=== PATIENT | male | born 1965 | race Asian ===

== ENCOUNTER 2017-05-09 11:28 | Observation (INO) ==
--- NOTE | 2017-05-09 11:37 | Emergency Department Note ---
Disposition Clinical Impression: Cerebrovascular accident Qualifiers: CVA mechanism: unspecified Qualified Code(s): I63.9 - Cerebral infarction, unspecified Disposition: Admitted As Inpatient Condition: Fair Time of Disposition: 12:52 Neuro HPI - General Chief Complaint: ED Neuro Symptoms/Deficit Stated Complaint: L sided numbness/weakness Time Seen by Provider: 05/09/17 11:31 Source: patient, EMS Mode of arrival: EMS Limitations: no limitations Nursing Notes Reviewed: Yes Vital Signs Reviewed: Yes - History of Present Illness HPI Narrative: 52-year-old male with history of previous stroke with TPA to on 05/03/2017 and sent [facility]. Patient states at 11 AM he developed a worsening left-sided weakness in his left arm and left leg. Also developed slurred speech. Patient states he did have some residual in his left arm from previous stroke a week ago. Onset of Symptoms Date: 05/09/17 Onset of Symptoms Time: 11:00 Timing confirmed by: caregiver Location: speech, left face, left arm, left leg History of same: Yes Severity: moderate Quality: weakness, numbness Symptoms Improving: Yes (With respect to the leg.) Improves with: none Worsens with: none Context: sudden onset On Anticoagulants: Yes (Plavix and aspirin) - Related Data Home Medications: Home Medications Medication Instructions Recorded Confirmed Benztropine Mesylate 2 mg PO BID 10/28/16 05/09/17 Gabapentin [Neurontin] 900 mg PO TID 10/28/16 05/09/17 [place] Carbonate 300 mg PO BID 10/28/16 05/09/17 Losartan Potassium [Cozaar] 25 mg PO DAILY 10/28/16 05/09/17 Venlafaxine HCl [Venlafaxine HCl 225 mg PO DAILY 10/28/16 05/09/17 ER] Atorvastatin Calcium [Lipitor] 20 mg PO DAILY 05/09/17 05/09/17 Oxybutynin [Ditropan] 10 mg PO TID 05/09/17 05/09/17 Potassium Chloride [Klor-Con] 20 meq PO DAILY 05/09/17 05/09/17 Testosterone Cypionate 100 mg IM QWEEK 05/09/17 05/09/17 [Depo-Testosterone] Venlafaxine HCl [Venlafaxine HCl 75 mg PO 05/09/17 ER] Previous Rx's Medication Instructions Recorded Acetaminophen w/Cod 300-30 mg 1 each PO Q8HR PRN #4 tablet 04/19/17 [Tylenol w/Codeine #3] Aspirin Enteric Coated [Aspirin EC] 325 mg PO DAILY #30 tablet. 05/11/17 OxyCODONE/APAP 5/325 [Percocet 1 each PO Q6HR PRN #30 tablet 05/11/17 5/325 MG] Allergies/Adverse Reactions: Allergies Allergy/AdvReac Type Severity Reaction Status Date / Time cephalexin [From Keflex] Allergy Severe Anaphylaxis Verified 04/25/17 21:45 latex Allergy Mild Hives Verified 04/25/17 21:45 clams Allergy Anaphylaxis Verified 04/25/17 21:45 tramadol Allergy Seizure Verified 04/25/17 21:45 All systems ED: reviewed and negative except as stated. Constitutional: Denies: fever, chills, weakness, weight change Eyes: Denies: eye pain, eye discharge, vision change ENT ED: Denies: ear pain, throat pain, dental pain, hearing loss, epistaxis, congestion, dysphagia Cardiovascular: Denies: chest pain, palpitations, dyspnea on exertion, edema, syncope Respiratory: Denies: cough, dyspnea, wheezes, hemoptysis, stridor Gastrointestinal: Denies: abdominal pain, nausea, vomiting, diarrhea, constipation, hematemesis, melena, hematochezia Genitourinary: Denies: urgency, dysuria, frequency, hematuria Musculoskeletal: Denies: back pain, neck pain, arthralgia, myalgia Integumentary: Denies: rash, abrasion, lesions Neurological: Reports: weakness, numbness. Denies: headache, paresthesias, confusion, abnormal gait, vertigo Psychiatric: Denies: anxiety, depression, suicidal thoughts, homicidal thoughts , auditory hallucinations, visual hallucinations Endocrine: Denies: fatigue Hematological/Lymphatic: Denies: easy bleeding, easy bruising Allergic/Immunologic: Denies: facial swelling, urticaria Past Medical History - Past Medical History Medical history: Reports: CHF, coronary artery disease, CVA, hypertension, migraine, myocardial infarction, pulmonary embolus, seizures, TIA, other Surgical history: Reports: cholecystectomy, hip replacement, orthopedic, other, other Psychiatric history: Reports: anxiety, bipolar, depression, PTSD - Social History Smoking Status: Never smoker Smokeless Tobacco Status: No Alcohol use: Reports: occasionally Drug use: Reports: none Physical Exam - General Limitations: no limitations General appearance: alert, in no apparent distress - Head Head exam: atraumatic, normocephalic, normal inspection - Eye Eye exam: Present: normal appearance, PERRL, EOMI - ENT ENT exam: normal exam, normal oropharynx, mucous membranes moist - Neck Neck exam: Present: normal inspection, full ROM, trachea midline - Chest Chest inspection: Present: normal inspection, symmetric chest wall rise - Respiratory Respiratory exam: Present: normal lung sounds bilaterally - Cardiovascular Cardiovascular exam: Present: regular rate, normal rhythm, normal heart sounds - Abdominal Exam Abdominal exam: Present: soft, Non-Tender. Absent: tenderness, distention, guarding, rebound, rigidity - Extremities Exam Extremities exam: Present: normal inspection, full ROM. Absent: tenderness, pedal edema - Expanded Lower Extremity Exam Neurovascular/Tendon exam: Absent: motor deficit, sensory deficit, tendon deficit Gait: observed and normal - Back Exam Back exam: Present: normal inspection, full ROM. Absent: tenderness - Neurological Exam Neurological exam: Present: alert, oriented X3 - Psychiatric Psychiatric exam: Present: normal affect, normal mood - Skin Skin exam: Present: warm, dry, intact, normal color Course - Reevaluation(s) Reevaluation #1: 52-year-old male who comes in complaining of left-sided strokelike symptoms started less than 30 minutes prior to arrival. Workup here so far was negative. We did activate the stroke alert and discussed with [facility] which did not feel he was a TPA candidate. They note he is received tPA 3 times and has had normal MRIs following. Time: 13:11 - Consultations Consultation #1: Discussed with Dr. Rolle radiology the CT scan is negative. Time: 11:54 Consultation #2: Discussed with [facility] neurology who states patient is not a TPA candidate. Time: 12:03 Consultation #3: Discussed with , admit. Time: 13:06 Vital Signs Temperature 98.4 F 05/09/17 11:33 Pulse Rate 89 05/09/17 11:33 Respiratory Rate 18 05/09/17 11:33 Blood Pressure 109/74 05/09/17 11:33 O2 Sat by Pulse Oximetry 95 05/09/17 11:33 Temperature 97.9 F 05/11/17 06:54 Pulse Rate 61 05/11/17 06:54 Respiratory Rate 18 05/11/17 06:54 Blood Pressure 114/79 05/11/17 06:54 O2 Sat by Pulse Oximetry 96 05/11/17 06:54 Oxygen Delivery Oxygen Delivery Room Air Neuro Symptoms/Deficit - Lab Data Result diagrams: 05/10/17 03:47 05/10/17 03:47 Lab Results 05/09/17 05/09/17 05/09/17 Range/Units 11:33 11:48 11:48 WBC 7.3 (4.3-11.1) K/mcL RBC 4.22 (4.19-5.50) M/mcL Hgb 12.9 (12.9-16.9) g/dL Hct 38.4 (37.5-50.1) % MCV 91.0 (83.0-100.0) fL MCH 30.6 (28.0-33.3) pg MCHC 33.6 (31.6-35.5) g/dL RDW 13.4 (11.5-14.5) % Plt Count 176 (140-400) K/mcL MPV 9.0 L (9.4-12.4) fL Immature Gran % 0.4 (0-4) % Seg Neutrophils % 74.1 % Lymphocytes % 16.3 % Monocytes % 4.8 % Eosinophils % 4.0 % Basophils % 0.4 % Neutrophils # 5.4 (1.6-8.9) K/mcL Lymphocytes # 1.2 (0.6-4.6) K/mcL Monocytes # 0.4 (0.0-1.3) K/mcL Eosinophils # 0.3 (0.0-0.6) K/mcL Basophils # 0.0 (0.0-0.2) K/mcL PT 11.7 (9.4-12.1) Seconds INR 1.1 APTT 32.2 (26.0-36.0) Seconds Sodium (136-145) mEq/L Potassium (3.5-4.5) mEq/L Chloride (98-109) mEq/L Carbon Dioxide (19-29) mEq/L BUN (8-26) mg/dL Creatinine (0.72-1.25) mg/dL Est GFR ( Amer) (> 60) Est GFR (Non-Af Amer) (> 60) BUN/Creatinine Ratio (6-26) Glucose (70-99) mg/dL POC Glucose 93 H (58-89) Calculated Osmolality (280-300) Calcium (8.6-10.8) mg/dL Troponin I (0-0.03) ng/mL 05/09/17 05/09/17 Range/Units 11:48 11:48 WBC (4.3-11.1) K/mcL RBC (4.19-5.50) M/mcL Hgb (12.9-16.9) g/dL Hct (37.5-50.1) % MCV (83.0-100.0) fL MCH (28.0-33.3) pg MCHC (31.6-35.5) g/dL RDW (11.5-14.5) % Plt Count (140-400) K/mcL MPV (9.4-12.4) fL Immature Gran % (0-4) % Seg Neutrophils % % Lymphocytes % % Monocytes % % Eosinophils % % Basophils % % Neutrophils # (1.6-8.9) K/mcL Lymphocytes # (0.6-4.6) K/mcL Monocytes # (0.0-1.3) K/mcL Eosinophils # (0.0-0.6) K/mcL Basophils # (0.0-0.2) K/mcL PT (9.4-12.1) Seconds INR APTT (26.0-36.0) Seconds Sodium 139 (136-145) mEq/L Potassium 4.1 (3.5-4.5) mEq/L Chloride 109 (98-109) mEq/L Carbon Dioxide 27 (19-29) mEq/L BUN 8 (8-26) mg/dL Creatinine 0.79 (0.72-1.25) mg/dL Est GFR ( Amer) > 60 (> 60) Est GFR (Non-Af Amer) > 60 (> 60) BUN/Creatinine Ratio 10 (6-26) Glucose 80 (70-99) mg/dL POC Glucose (58-89) Calculated Osmolality 285 (280-300) Calcium 9.2 (8.6-10.8) mg/dL Troponin I 0.00 (0-0.03) ng/mL - EKG Data EKG attestation: Yes I reviewed and interpreted this EKG. EKG shows normal: sinus rhythm Rate: normal Rhythm: NSR Interpretation: no acute changes NIH Stroke Scale - Level of Consciousness LOC: Alert - LOC Questions LOC Questions: Answers both correctly - LOC Commands LOC Commands: Performs both correctly - Best Gaze Best Gaze: Normal - Visual Visual: No visual loss - Facial Palsy Facial Palsy: Minor asymmetry on smiling, flattened nasolabial fold - Motor Arms Motor Arm-Left: Drift, does NOT hit bed Motor Arm-Right: No drift for 10 seconds - Motor Legs Motor Leg-Left: No drift for 5 seconds Motor Leg-Right: No drift for 5 seconds - Limb Ataxia Limb Ataxia: Present in ONE limb - Sensory Sensory: Mild to moderate loss, "not as sharp" - Best Language Best Language: No aphasia - Dysarthria Dysarthria: Mild, slurs some words - Extinction and Inattention Extinction and Inattention: Normal - NIHSS Total Score NIHSS Total Score: 5 TPA Checklist - Eligibilty for IV tPA 1. LKW equal to or less than 4.5 hours be before treatment: Yes 2. Clinical diagnosis of ischemic stroke causing deficit: Yes 3. Age 18 years or older: Yes - Contraindications 4. Evidence of intracranial hemorrhage on pretreatment CT: No 5. Presentation suggests subarachnoid hem, even if CT normal: No 6. CT shows multilobar infarction: No 7. Known neoplasm, arteriovenous malformation, or aneurysm: No 8. Significant head trauma (w/ LOC) or CVA in last 3 months: No 9. BP elevated (systolic > 185 or diastolic > 110): No 10. Abnormal Blood Glucose (<50 or >400mg/dl): No 11. Active internal bleeding [PM.TPA15]: No 12. Known bleeding risk (including; not limited to 13-15): No 13. Heparin/argatroban/bivalirudin w/in 48hrs & PTT > normal: No 14. Platelet count less than 100,000/MM3: No - Warnings/Precautions Considerations 16. Prior ischemic stroke within last 3 months: Yes 17. Recent history of intracranial hemorrhage: No 18. : No 19. Current/recent use Effient (7 days) or Brilinta (5 days): No 20. Arterial puncture at non compressible site or LP >7days: No 21. Major surgery or serious trauma in last 14 days: No 22. GI or urinary tract hemorrhage in last 21 days: No 23. [place] involving left anterior myocardium in last 3 months: No 24. Suspected or known infective endocarditis/pericarditis: No - LKW: 3-4.5 hrs Add. Warnings/Precautions 25. oral anticoag other than warfarin regardles of last dose: Yes Patient/family understanding: The patient/family members have been counseled and understood the risk, benefit , and alternatives of treatment.
[2017-05-09 11:56] LABS: Basophils % 0.4 %; Eosinophils # 0.3 K/mcL (0.0-0.6); Hematocrit 38.4 % (37.5-50.1); Hemoglobin 12.9 g/dL (12.9-16.9); Immature Granulocytes % 0.4 % (0-4); Lymphocytes # 1.2 K/mcL (0.6-4.6); Lymphocytes % 16.3 %; Mean Corpuscular HGB Conc 33.6 g/dL (31.6-35.5); Mean Corpuscular Hemoglobin 30.6 pg (28.0-33.3); Monocytes # 0.4 K/mcL (0.0-1.3); Monocytes % 4.8 %; Neutrophils # 5.4 K/mcL (1.6-8.9); Red Blood Count 4.22 M/mcL (4.19-5.50); Red Cell Distribution Width 13.4 % (11.5-14.5); Segmented Neutrophils % 74.1 %
[2017-05-09 11:57] LABS: Platelet Count 176 K/mcL (140-400)
[2017-05-09 12:01] LABS: INR 1.1; Prothrombin Time 11.7 Seconds (9.4-12.1)
[2017-05-09 12:04] LABS: Activated Partial Thrombo Time 32.2 Seconds (26.0-36.0)
[2017-05-09 12:08] LABS: BUN/Creatinine Ratio 10 (6-26); Blood Urea Nitrogen 8 mg/dL (8-26); Calcium 9.2 mg/dL (8.6-10.8); Carbon Dioxide 27 mEq/L (19-29); Chloride 109 mEq/L (98-109); Glucose 80 mg/dL (70-99); Osmolality,Calculated 285 (280-300); Potassium 4.1 mEq/L (3.5-4.5); Sodium 139 mEq/L (136-145); eGFR For African Americans > 60 (> 60); eGFR For Non-African Americans > 60 (> 60)
[2017-05-09] MEDS ORDERED: Naloxone 0.4 MG/ML INJ IVP PRN (14:16)
--- NOTE | 2017-05-09 14:33 | Internal Med History&Physical ---
<Ashley Smith - Last Filed: 05/09/17 15:16> Date of Encounter: 05/09/17 Time of Encounter: 14:32 Assessment and Plan (1) TIA (transient ischemic attack) Current visit: Yes Status: Suspected 1 patient has episode of numbness tingling slurred speech and weakness to the left side occurring approximately 11 AM symptoms are resolved at this time. Patient does have history of CVA in the past. Proximal L week ago he was sent to [facility] after receiving TPA for stroke symptoms follow-up MRI was negative. We will continue with frequent neuro checks 2 we will obtain MRa head and neck -CT is negative 3 we will obtain records from [facility] concerning previous stroke workup 4 we will continue with aspirin and statin 5- we will consult psychiatry patient does have history of bipolar disorder concerned that this may be related to possible conversion disorder Qualifiers: Transient cerebral ischemia type: unspecified Qualified Code(s): G45.9 - Transient cerebral ischemic attack, unspecified (2) Bipolar 1 disorder Current visit: No Status: Chronic 1 we will continue with home medications-he will check lithium level 2 consult psychiatry (3) Chronic diastolic CHF (congestive heart failure) Current visit: No Status: Chronic Jose appears stable no pedal edema no JVD lungs sounds are clear. We will continue with home medications (4) DVT prophylaxis Current visit: Yes Status: Acute 1 ETHEL hose (5) Hypertension Current visit: No Status: Chronic 1 presently controlled continue with losartan, 2 low sodium diet Qualifiers: Hypertension type: essential hypertension Qualified Code(s): I10 - Essential (primary) hypertension Internal Medicine - H&P: HPI Chief complaint: numbness tingling of Left side Admitted From: Emergency Dept Plans for Post Hospital Care: Home History of present illness: Mr. Brown is a 52 year old male with past medical history of congestive heart failure coronary disease and CVA hypertension migraines OR bipolar. The patient has an extensive history apparently around November 19 he was in [place] and experienced stroke symptoms and was given TPA at that time. He then on April 21 of this month experienced a fall from standing and struck his head he was sent to [facility]. And then on May 03 he experienced a stroke with TPA and again sent to [facility]. Post-TPA MRI was negative. He did have some residual weakness in his left arm. He was discharged on May 04 and since that time he has been at his usual state of health. He denies any fevers chills nausea vomiting diarrhea abdominal pain chest pain or shortness of breath Today at approximately 11 AM patient began to experience numbness and tingling of his left arm and leg. He states he was off balance and was slurring his speech. He presented to the ER stroke alert was called and at that time his NIH score was 5. ER physician did speak with Dr. Arlene CAZARES neurology patient is not a TPA candidate. CT of head was negative patient's symptoms, improving he is hemodynamically stable he has been admitted for further workup evaluation. Upon assessment, patient ambulating in room, bending over picking up his belongings from the floor and got back into bed without any difficulty. He is alert oriented 3 he follows simple commands cranial nerves II through XII are intact Romberg was negative. Patient states his symptoms have pretty much resolved, he still has some slight tingling in his fingers. His lung sounds are clear heart sounds are regular S1 and S2 with no rubs clicks, murmurs noted abdomen soft nontender no swelling lower extremities. He is hemodynamically stable. I reviewed this case with Dr Joseph who agrees with plan Past Med Surg Social Fam HX - Past Medical History Medical history: CHF, coronary artery disease, CVA, hypertension, migraine, myocardial infarction, pulmonary embolus, seizures, TIA, other Psychiatric history: anxiety, bipolar, depression, PTSD - Past Surgical History Surgical History: cholecystectomy, hip replacement, orthopedic, other, other - Social History Smoking Status: Never smoker Smokeless Tobacco Status: No Alcohol use: occasionally Drug use: none - Family History Father Adopted: Yes Hx Family Cardiac Disorders: Yes Internal Medicine - H&P: Meds Aspirin 81 mg PO DAILY 10/28/16 [History] Benztropine Mesylate 2 mg PO BID 10/28/16 [History] Gabapentin [Neurontin] 900 mg PO TID 10/28/16 [History] [place] Carbonate 300 mg PO BID 10/28/16 [History] Losartan Potassium [Cozaar] 25 mg PO DAILY 10/28/16 [History] Venlafaxine HCl [Venlafaxine HCl ER] 225 mg PO DAILY 10/28/16 [History] Acetaminophen w/Cod 300-30 mg [Tylenol w/Codeine #3] 1 each PO Q8HR PRN #4 tablet 04/19/17 [Rx] Atorvastatin Calcium [Lipitor] 20 mg PO DAILY 05/09/17 [History] Oxybutynin [Ditropan] 10 mg PO TID 05/09/17 [History] Potassium Chloride [Klor-Con] 20 meq PO DAILY 05/09/17 [History] Testosterone Cypionate [Depo-Testosterone] 100 mg IM QWEEK 05/09/17 [History] Venlafaxine HCl [Venlafaxine HCl ER] 75 mg PO 05/09/17 [History] Allergies cephalexin [From Keflex] Allergy (Severe, Verified 04/25/17 21:45) Anaphylaxis latex Allergy (Mild, Verified 04/25/17 21:45) Hives clams Allergy (Verified 04/25/17 21:45) Anaphylaxis tramadol Allergy (Verified 04/25/17 21:45) Seizure All Systems PM: A 10-system review of systems was performed and is negative for pertinent findings except as documented above in the HPI. - Constitutional Constitutional: no chills, no fever(s), no night sweats - EENT Eyes: no change in vision, no discharge, no pain, no photophobia Nose, mouth and throat: no dysphagia, no nasal discharge, no neck pain, no sore throat - Cardiovascular Cardiovascular ROS IM: no chest pain, no diaphoresis, no dyspnea, no lightheadedness, no palpitations, no syncope - Respiratory Respiratory: no cough, no dyspnea, no wheezing, no excessive phlegm production - Gastrointestinal Gastrointestinal: no abdominal pain, no diarrhea, no hematemesis, no hematochezia, no melena, no nausea, no vomiting - Musculoskeletal Musculoskeletal ROS IM: no numbness, no tingling - Integumentary Integumentary IM: no rash, no unusual bruising - Neurological Neurological ROS: numbness, tingling - Constitutional Vitals: Temp Pulse Resp BP Pulse Ox 98.4 F 70 18 106/70 97 05/09/17 11:33 05/09/17 12:31 05/09/17 14:17 05/09/17 14:17 05/09/17 12:31 General appearance: Present: A&O X 3, answers questions appropriately - Head Head exam: Present: atraumatic, normocephalic - Eye Eye exam: Present: PERRL, conjuntiva pink, sclera anicteric Pupils: Present: PERRL - Neck Neck exam general surgery: Present: supple, trachea midline. Absent: lymphadenopathy - Respiratory Respiratory exam: Present: CTAB. Absent: accessory muscle use, rales, rhonchi, wheezes - Cardiovascular Cardiovascular exam: Present: RRR, +S1, +S2. Absent: diastolic murmur, gallop, rubs, systolic murmur - GI/Abdominal GI/Abdominal exam: Present: normal bowel sounds, soft, no peritoneal signs. Absent: distended, tenderness - Extremities Exam Extremities exam: Present: warm, radial pulses palpable and symetrical. Absent : calf tenderness, cyanotic, pedal edema - Neurological Exam Neurological exam: Present: CN II-XII intact, oriented X3, no focal deficits. Absent: pronater drift, facial droop, speech deficit - Expanded Neurological Exam Speech: Present: fluid speech Cranial Nerves: EOM's intact PM: Normal, tongue deviation PM: Normal Cerebellar function: finger to nose: Normal, Romberg: Normal Neuro motor strength exam: LUE: 4, RUE: 5, LLE: 5, RLE: 5 Coma Scale Eye Opening: Spontaneous Coma Scale Motor Response: Obeys Commands Coma Scale Verbal Response: Oriented Coma Scale Total: 15 - Skin Skin exam: Present: dry, intact Internal Med - H&P Results - Labs CBC & Chem 7: 05/09/17 11:48 05/09/17 11:48 - EKG Data EKG shows normal: sinus rhythm - Diagnostic Studies Other Images Additional comments: Head CT 05/09/17 11:32 IMPRESSION: 1. Stable exam with no acute intracranial abnormality. 2. Stable mild right supraorbital scalp contusion. Critical test findings were called by Dr. Suhas Rolle MD to Tho Cordero on 05/09/2017 at 11:53. D/ / 05/09/2017 11:56:27 Suhas Rolle MD / earnold Interpreting Provider: Suhas Rolle MD <Sin Joseph T - Last Filed: 05/09/17 16:14> Date of Encounter: 05/09/17 Internal Medicine - H&P: HPI History of present illness: Mr. Brown is a 52 year old male All Systems PM: A 10-system review of systems was performed and is negative for pertinent findings except as documented above in the HPI. - Constitutional Vitals: Temp Pulse Resp BP Pulse Ox 98.4 F 70 18 106/70 97 05/09/17 11:33 05/09/17 12:31 05/09/17 14:17 05/09/17 14:17 05/09/17 12:31 Internal Med - H&P Results - Labs CBC & Chem 7: 05/09/17 11:48 05/09/17 11:48 - Attending Attestation I have independently seen and examined this patient. Plan of care has been discussed with NATALIE Smith, whose documentation reflects our plan of care 52 M just discharged from [facility] four days ago after being managed for Ischemic CVA (patient received TPA), per ER resident, Brain MRI and CTA were not remarkable for CVA at that time. Patient represents to the ER stating nothing changed from when I was discharged from [facility], I still have LLE and LUE weakness. 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 He has bilateral ptosis bilaterally, otherwise no neurologic deficits, other systemic exm unremarkable Labs and Imaging reviewed: Unremarkable A/P *Suspected TIA. Obtain records from [facility], but complete TIA work up. Continue ASA/ Lipitor, Neurochecks q2h till stable, Obtain Head and Neck MRA *Suspected Conversion disorder, consult psych. Check lithium level, resume home psych meds PTSD/Bipolar/Other chronic medical conditions are stable. Rest of details as in NATALIE Smith documentation
--- NOTE | 2017-05-09 16:27 | Electrocardiograph Report ---
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
[2017-05-09] MEDS ORDERED: *HR* LORazepam 2 MG/ML VIAL IVP ONE (16:47)
[2017-05-09] MEDS ORDERED: 0.9 % Sodium Chloride 500 ML IVC ONE (16:48)
[2017-05-09] MEDS: Acetaminophen 325 MG TABLET PO PRN (22:02)
[2017-05-09] MEDS: Gabapentin 300 MG CAPSULE PO SCH (22:02)
[2017-05-09] MEDS: Lithium Carbonate 300 MG CAPSULE PO SCH (22:02)
[2017-05-10 04:53] LABS: BUN/Creatinine Ratio 12 (6-26); Blood Urea Nitrogen 9 mg/dL (8-26); Calcium 8.9 mg/dL (8.6-10.8); Carbon Dioxide 24 mEq/L (19-29); Chloride 111 mEq/L (98-109); Chol/HDL Ratio 2.4 (0-4.9); Glucose 84 mg/dL (70-99); HDL Cholesterol 30 mg/dL (40-59); LDL Cholesterol,Calculated 26 mg/dL (0-99); Osmolality,Calculated 290 (280-300); Potassium 3.7 mEq/L (3.5-4.5); Sodium 141 mEq/L (136-145); Triglycerides 74 mg/dL (< 150); eGFR For African Americans > 60 (> 60); eGFR For Non-African Americans > 60 (> 60)
[2017-05-10 04:59] LABS: Basophils # 0.1 K/mcL (0.0-0.2); Basophils % 0.7 %; Eosinophils # 0.4 K/mcL (0.0-0.6); Hemoglobin 13.3 g/dL (12.9-16.9); Immature Granulocytes % 0.4 % (0-4); Lymphocytes # 1.8 K/mcL (0.6-4.6); Lymphocytes % 26.2 %; Mean Corpuscular HGB Conc 33.3 g/dL (31.6-35.5); Mean Corpuscular Hemoglobin 30.7 pg (28.0-33.3); Mean Corpuscular Volume 92.4 fL (83.0-100.0); Mean Platelet Volume 9.3 fL (9.4-12.4); Monocytes # 0.5 K/mcL (0.0-1.3); Monocytes % 7.6 %; Platelet Count 168 K/mcL (140-400); Red Blood Count 4.33 M/mcL (4.19-5.50); Red Cell Distribution Width 13.4 % (11.5-14.5); Segmented Neutrophils % 59.1 %
[2017-05-10 05:03] LABS: Cholesterol 71 mg/dL (< 200)
[2017-05-10] MEDS: Lithium Carbonate 300 MG CAPSULE PO SCH ×2 (09:52→21:00)
[2017-05-10] MEDS: Gabapentin 300 MG CAPSULE PO SCH ×3 (09:52→21:00)
[2017-05-10] MEDS: Aspirin 81 MG TAB.CHEW PO SCH (09:52)
[2017-05-10] MEDS: Venlafaxine XR (24 HR) 75 MG CAP.ER.24H PO SCH (09:52)
[2017-05-10] MEDS ORDERED: *HR* LORazepam 2 MG/ML VIAL IVP ONE ×2 (12:35)
--- NOTE | 2017-05-10 12:39 | Internal Med Progress Note ---
Date of Encounter: 05/10/17 Time of Encounter: 12:38 - Assessment and plan (1) TIA (transient ischemic attack) Current Visit: Yes Status: Suspected Assessment and plan: patient has reported sudden onset loss of sensation in the ft upper extremity and slurred speech. This has improved. Head CT was negative. Plan: Will obtain MRI of the brain. Obtain records from his recent hospitalization at [facility]. Frequent neuro checks. Continue aspirin. MRA of the head and neck were reviewed and found to be nonrevealing. Qualifiers: Transient cerebral ischemia type: unspecified Qualified Code(s): G45.9 - Transient cerebral ischemic attack, unspecified (2) DVT prophylaxis Current Visit: Yes Status: Acute Assessment and plan: Subcutaneous Lovenox. (3) Bipolar 1 disorder Current Visit: No Status: Chronic Assessment and plan: Continue lithium and venlafaxine. Consult psychiatry. There is a concern for conversion disorder given multiple hospitalizations and neurological symptoms with no clear objective support. We will ask psychiatry to help with assessment and management. (4) Hypertension Current Visit: No Status: Chronic Assessment and plan: Continue valsartan. Qualifiers: Hypertension type: essential hypertension Qualified Code(s): I10 - Essential (primary) hypertension - Subjective Interval history: Patient presented with sudden onset left upper extremity numbness and slurred speech. He was evaluated in the ED and found not a good candidate for TPA. Currently he reports left upper extremity numbness, no headache or visual loss. Slurred speech has resolved. - Constitutional Vitals: Temp Pulse Resp BP Pulse Ox 97.9 F 63 18 112/93 96 05/10/17 11:53 05/10/17 11:53 05/10/17 11:53 05/10/17 11:53 05/10/17 11:53 General appearance: Present: A&O X 3, answers questions appropriately - Eye Eye exam: Present: PERRL, conjuntiva pink, sclera anicteric Pupils: Present: PERRL - Respiratory Respiratory exam: Present: CTAB. Absent: accessory muscle use, rales, rhonchi, wheezes - Cardiovascular Cardiovascular exam: Present: RRR, +S1, +S2. Absent: diastolic murmur, gallop, rubs, systolic murmur - GI/Abdominal GI/Abdominal exam: Present: normal bowel sounds, soft, no peritoneal signs. Absent: distended, tenderness - Extremities Exam Extremities exam: Present: warm, radial pulses palpable and symetrical. Absent : calf tenderness, cyanotic, pedal edema - Neurological Exam Neurological exam: Present: CN II-XII intact, oriented X3. Absent: pronater drift, facial droop, speech deficit Additional comments: Left upper extremity and left lower extremity strength diminished compared to the right. Reported left arm sensation deficit to light touch. - Skin Skin exam: Present: dry, intact Internal Medicine: Result - Labs CBC & Chem 7: 05/10/17 03:47 05/10/17 03:47 Labs: Short CBC 05/10/17 Range/Units 03:47 WBC 6.8 (4.3-11.1) K/mcL Hgb 13.3 (12.9-16.9) g/dL Hct 40.0 (37.5-50.1) % Plt Count 168 (140-400) K/mcL Neutrophils # 4.0 (1.6-8.9) K/mcL BMP 05/10/17 03:47 Sodium 141 Potassium 3.7 Chloride 111 H Carbon Dioxide 24 BUN 9 Creatinine 0.77 Glucose 84 Calcium 8.9 Cardiac Enzymes 05/09/17 05/09/17 Range/Units 17:57 22:37 Troponin I 0.00 0.00 (0-0.03) ng/mL - ABG Interpretation ABG results: PT/INR, D-dimer PT 11.7 Seconds (9.4-12.1) 05/09/17 11:48 - EKG Interpretation EKG Interpreted by Myself: Yes EKG shows normal: sinus rhythm, QRS complexes, ST-T waves - Impressions Impressions Head MRA 05/09/17 15:09 IMPRESSION: Limited by motion artifact. Unremarkable MRA of the head. Unremarkable MRA of the neck. D/ / César Gallardo MD / César Gallardo MD Interpreting Provider: César Gallardo MD Neck MRA 05/09/17 15:09 IMPRESSION: Limited by motion artifact. Unremarkable MRA of the head. Unremarkable MRA of the neck. D/ / César Gallardo MD / César Gallardo MD Interpreting Provider: César Gallardo MD Consult Discharge Plan - Plan Referrals: NO,PCP [Primary Care Provider] -
[2017-05-10] MEDS: *HR* OxyCODONE/APAP 5/325 TABLET PO PRN (13:03)
[2017-05-10] MEDS: Acetaminophen 325 MG TABLET PO PRN (17:14)
[2017-05-11] MEDS ORDERED: *HR* Enoxaparin 40 MG/0.4 ML SYRINGE SQ SCH (06:00)
[2017-05-11 06:55] VITALS: BP 114/79
[2017-05-11] MEDS: Lithium Carbonate 300 MG CAPSULE PO SCH (08:47)
[2017-05-11] MEDS: Gabapentin 300 MG CAPSULE PO SCH (08:48)
[2017-05-11] MEDS: Aspirin 81 MG TAB.CHEW PO SCH (08:48)
[2017-05-11] MEDS: Venlafaxine XR (24 HR) 75 MG CAP.ER.24H PO SCH (08:48)
[2017-05-11] MEDS: *HR* OxyCODONE/APAP 5/325 TABLET PO PRN (08:52)
--- NOTE | 2017-05-11 11:57 | Psychiatry History & Physical ---
Date of Encounter: 05/11/17 Time of Encounter: 11:00 History of Present Illness Patient Stated Chief Complaint: "I am not feeling well." Medicare Admission Attestation: For traditional Medicare patients the provided hospital inpatient services are reasonable and necessary and in the case of services not specified as inpatient -only under 42 CFR 419.22 (n), that they are appropriately provided as inpatient services in accordance 42 CFR 412.3. For Critical Access Hospital the patient may reasonably be expected to be discharged or transferred to a hospital within 96 hours after admission to the Critical Access Hospital. Admitted From: Emergency Dept Plans for Post Hospital Care: Home History of Present Illness: Mr. Brown is a 52 year old male with a history of bipolar disorder, anxiety, personality disorder who presented to the hospital with slurred speech and weakness. He has a history of bipolar disorder in the past treated at the [facility]. Patient also reports diagnosis of Parkinson's disease and states that he has had admissions at [facility] related to neurological issues. Patient has been taking the same combination of bipolar medications including gabapentin, Effexor, lithium since August 2016. He reports that for the most part these medications are working well. He does report increased stress because his girlfriend broke up with him again. There are some issues that the patient does not want to get involved in regarding his ex-girlfriend and he is considering moving back to [place] to avoid falling into similar relationship patterns. Patient lived in [place] for many years before moving to [place] several years ago. He denies suicidal or homicidal ideation, intent, or plan. He denies auditory or visual hallucinations. He denies grandiosity, decreased need for sleep, impulsivity. He is alert and oriented to person place and time as well as circumstance. Patient is very versed in medical language and peers to have a pretty good understanding of possible medical issues going on. Past Med Surg Social Fam HX - Past Medical History Medical history: CHF, coronary artery disease, CVA, hypertension, migraine, myocardial infarction, pulmonary embolus, seizures, TIA, other - Past Psychiatric History Psychiatric history: Reports: bipolar Past psychiatric history details: Patient has had previous hospitalizations for mood symptoms. Mainly outpatient treatment with medication titration. Somewhat noncompliant with medicines at times. Currently patient is taking medications as prescribed and sees a therapist at [facility]. Family psychiatric history: No Family History of Suicide: None - Past Surgical History Surgical History: cholecystectomy, hip replacement, orthopedic, other, other - Social History Smoking Status: Never smoker Smokeless Tobacco Status: No Alcohol use: occasionally Drug use: none - Family History Father Adopted: Yes Hx Family Cardiac Disorders: Yes Medications & Allergies Aspirin 81 mg PO DAILY 10/28/16 [History] Benztropine Mesylate 2 mg PO BID 10/28/16 [History] Gabapentin [Neurontin] 900 mg PO TID 10/28/16 [History] [place] Carbonate 300 mg PO BID 10/28/16 [History] Losartan Potassium [Cozaar] 25 mg PO DAILY 10/28/16 [History] Venlafaxine HCl [Venlafaxine HCl ER] 225 mg PO DAILY 10/28/16 [History] Acetaminophen w/Cod 300-30 mg [Tylenol w/Codeine #3] 1 each PO Q8HR PRN #4 tablet 04/19/17 [Rx] Atorvastatin Calcium [Lipitor] 20 mg PO DAILY 05/09/17 [History] Oxybutynin [Ditropan] 10 mg PO TID 05/09/17 [History] Potassium Chloride [Klor-Con] 20 meq PO DAILY 05/09/17 [History] Testosterone Cypionate [Depo-Testosterone] 100 mg IM QWEEK 05/09/17 [History] Venlafaxine HCl [Venlafaxine HCl ER] 75 mg PO 05/09/17 [History] Allergies cephalexin [From Keflex] Allergy (Severe, Verified 04/25/17 21:45) Anaphylaxis latex Allergy (Mild, Verified 04/25/17 21:45) Hives clams Allergy (Verified 04/25/17 21:45) Anaphylaxis tramadol Allergy (Verified 04/25/17 21:45) Seizure Review of Systems Constitutional: Reports: weight change (Patient reports some weight loss over the past few months. He is vague on how much weight he has lost.) Eyes: Denies: eye pain, vision change Ears, Nose, Throat: Denies: ear pain, throat pain, dental pain, hearing loss, congestion Cardiovascular: Denies: chest pain, palpitations, dyspnea on exertion Respiratory: Denies: cough, dyspnea, wheezes Gastrointestinal: Denies: abdominal pain, nausea, vomiting, diarrhea, constipation Genitourinary male: Denies: urgency, dysuria, frequency, genital lesions Genitourinary female: Denies: urgency, dysuria, frequency, abnormal menses, dyspareunia Musculoskeletal: Denies: joint swelling, joint pain Integumentary: Denies: rash, lesions, pruritus Neurological: Reports: abnormal gait Psychiatric: Reports: anxiety, mood swings. Denies: depression, suicidal ideation, change in appetite, homicidal ideation, auditory hallucinations, visual hallucinations, difficulty concentrating Endocrine: Denies: fatigue, heat or cold intolerance Hematologic/Lymphatic: Denies: easy bruising, lymphadenopathy Allergic/Immunologic: Denies: urticaria, itchy eyes Mental Status Exam Patient orientation: Yes Person, Yes Time, Yes Place Level of alertness: Alert Patient appearance: Unkempt Behavior: calm, cooperative Psychomotor activity: Normal Eye contact: Maintains Eye Contact Mood description: Euthymic/stable Affect description: congruent with mood, full range Speech pattern: Normal rate, Normal rhythm, Normal tone Speech volume: Normal Thought process: Intact, Logical, Goal Oriented Thought content: Yes Intact, No Suicidal ideation, No Homicidal ideation Perceptual disturbances: No Auditory hallucinations, No Visual hallucinations Attention span: Capable of Focused Attention Memory description: Grossly Intact Patient reliability: Reliable Historian Intelligence estimate: Average Judgment: Fair Insight: Partial Results - Vital Signs Vital signs: Temp Pulse Resp BP Pulse Ox 97.9 F 61 18 114/79 96 05/11/17 06:54 05/11/17 06:54 05/11/17 06:54 05/11/17 06:54 05/11/17 06:54 - Drug Levels and Toxicology Drug Levels and Toxicology: Drug Levels and Toxicity 05/10/17 16:20 [place] 0.6 - Labs Labs: Laboratory Last Values WBC 6.8 K/mcL (4.3-11.1) 05/10/17 03:47 RBC 4.33 M/mcL (4.19-5.50) 05/10/17 03:47 Hgb 13.3 g/dL (12.9-16.9) 05/10/17 03:47 Hct 40.0 % (37.5-50.1) 05/10/17 03:47 MCV 92.4 fL (83.0-100.0) 05/10/17 03:47 MCH 30.7 pg (28.0-33.3) 05/10/17 03:47 MCHC 33.3 g/dL (31.6-35.5) 05/10/17 03:47 RDW 13.4 % (11.5-14.5) 05/10/17 03:47 Plt Count 168 K/mcL (140-400) 05/10/17 03:47 MPV 9.3 fL (9.4-12.4) L 05/10/17 03:47 Immature Gran % 0.4 % (0-4) 05/10/17 03:47 Seg Neutrophils % 59.1 % 05/10/17 03:47 Lymphocytes % 26.2 % 05/10/17 03:47 Monocytes % 7.6 % 05/10/17 03:47 Eosinophils % 6.0 % 05/10/17 03:47 Basophils % 0.7 % 05/10/17 03:47 Neutrophils # 4.0 K/mcL (1.6-8.9) 05/10/17 03:47 Lymphocytes # 1.8 K/mcL (0.6-4.6) 05/10/17 03:47 Monocytes # 0.5 K/mcL (0.0-1.3) 05/10/17 03:47 Eosinophils # 0.4 K/mcL (0.0-0.6) 05/10/17 03:47 Basophils # 0.1 K/mcL (0.0-0.2) 05/10/17 03:47 PT 11.7 Seconds (9.4-12.1) 05/09/17 11:48 INR 1.1 05/09/17 11:48 APTT 32.2 Seconds (26.0-36.0) 05/09/17 11:48 Sodium 141 mEq/L (136-145) 05/10/17 03:47 Potassium 3.7 mEq/L (3.5-4.5) 05/10/17 03:47 Chloride 111 mEq/L (98-109) H 05/10/17 03:47 Carbon Dioxide 24 mEq/L (19-29) 05/10/17 03:47 BUN 9 mg/dL (8-26) 05/10/17 03:47 Creatinine 0.77 mg/dL (0.72-1.25) 05/10/17 03:47 Est GFR ( Amer) > 60 (> 60) 05/10/17 03:47 Est GFR (Non-Af Amer) > 60 (> 60) 05/10/17 03:47 BUN/Creatinine Ratio 12 (6-26) 05/10/17 03:47 Glucose 84 mg/dL (70-99) 05/10/17 03:47 POC Glucose 93 (58-89) H 05/09/17 11:33 Calculated Osmolality 290 (280-300) 05/10/17 03:47 Calcium 8.9 mg/dL (8.6-10.8) 05/10/17 03:47 Troponin I 0.00 ng/mL (0-0.03) 05/09/17 22:37 Triglycerides 74 mg/dL (< 150) 05/10/17 03:47 Cholesterol 71 mg/dL (< 200) 05/10/17 03:47 LDL Cholesterol, Calc 26 mg/dL (0-99) 05/10/17 03:47 VLDL Cholesterol, Calc 15 mg/dL (< 31) 05/10/17 03:47 HDL Cholesterol 30 mg/dL (40-59) L 05/10/17 03:47 Cholesterol/HDL Ratio 2.4 (0-4.9) 05/10/17 03:47 [place] 0.6 mEq/L (0.6-1.2) 05/10/17 16:20 - Impressions Impressions Brain MRI 05/10/17 12:36 IMPRESSION: Unremarkable MRI of the brain. No acute intracranial abnormality. D/ / 05/10/2017 14:47:12 Matt Ventura MD / titi Interpreting Provider: Matt Ventura MD Assessment and Plan (1) Bipolar 1 disorder Current visit: No Status: Chronic Additional Plan: Recommend continue current bipolar medications the same. Reviewed patient's outpatient record and he does have a history of reporting similar neurological symptoms in the past and he does have treatment at [facility] for these issues. Outpatient provider also documented one time that several of his neurological symptoms may be related to his psychiatric issues. At this time he is stable from a psychiatric standpoint and does not require medication titrations. [facility] for further treatment. He is agreeable to continuing outpatient counseling. Thank you for this consultation and please call with questions. Risks, benefits, side effects, alternatives discussed w/pt: Yes Patient agreeable to treatment: Yes Plans for Post Hospital Care: Home
--- NOTE | 2017-05-11 13:36 | Discharge Summary ---
Date of Encounter: 05/11/17 Time of Encounter: 13:34 - Discharge Diagnosis (1) TIA (transient ischemic attack) Priority: Primary Status: Suspected Qualifiers: Transient cerebral ischemia type: unspecified Qualified Code(s): G45.9 - Transient cerebral ischemic attack, unspecified (2) DVT prophylaxis Priority: Secondary Status: Acute (3) Bipolar 1 disorder Priority: Secondary Status: Chronic (4) Hypertension Priority: Secondary Status: Chronic Qualifiers: Hypertension type: essential hypertension Qualified Code(s): I10 - Essential (primary) hypertension - Discharge Medications Prescriptions: OxyCODONE/APAP 5/325 [Percocet 5/325 MG] 1 each PO Q6HR PRN #30 tablet PRN Reason: Moderate Pain Aspirin Enteric Coated [Aspirin EC] 325 mg PO DAILY #30 tablet. Home Medications: Benztropine Mesylate 2 mg PO BID 10/28/16 [History] Gabapentin [Neurontin] 900 mg PO TID 10/28/16 [History] [place] Carbonate 300 mg PO BID 10/28/16 [History] Losartan Potassium [Cozaar] 25 mg PO DAILY 10/28/16 [History] Venlafaxine HCl [Venlafaxine HCl ER] 225 mg PO DAILY 10/28/16 [History] Acetaminophen w/Cod 300-30 mg [Tylenol w/Codeine #3] 1 each PO Q8HR PRN #4 tablet 04/19/17 [Rx] Atorvastatin Calcium [Lipitor] 20 mg PO DAILY 05/09/17 [History] Oxybutynin [Ditropan] 10 mg PO TID 05/09/17 [History] Potassium Chloride [Klor-Con] 20 meq PO DAILY 05/09/17 [History] Testosterone Cypionate [Depo-Testosterone] 100 mg IM QWEEK 05/09/17 [History] Venlafaxine HCl [Venlafaxine HCl ER] 75 mg PO 05/09/17 [History] Aspirin Enteric Coated [Aspirin EC] 325 mg PO DAILY #30 tablet. 05/11/17 [Rx] OxyCODONE/APAP 5/325 [Percocet 5/325 MG] 1 each PO Q6HR PRN #30 tablet 05/11/17 [Rx] Allergies/Adverse Reactions: Allergies cephalexin [From Keflex] Allergy (Severe, Verified 04/25/17 21:45) Anaphylaxis latex Allergy (Mild, Verified 04/25/17 21:45) Hives clams Allergy (Verified 04/25/17 21:45) Anaphylaxis tramadol Allergy (Verified 04/25/17 21:45) Seizure Procedures/tests Complete & Pending: Procedures Performed prior 72 hours Category Date Time Status MR angio head wo con [MR] Routine MRI 05/09/17 15:09 Completed MR angio neck wo/w con [MR] Routine MRI 05/09/17 15:09 Completed MR head/brain wo con [MR] Stat MRI 05/10/17 12:36 Completed Date of admission: 05/09/17 13:45 Primary care physician: PCP NO Consults: 05/10/17 12:30 Consult to Psychiatry [CONS] Stat Consulting Provider: Kristi Villela Reason for Consult: BPDO ? conversion disorder Call Completed: Yes - Patient Status Disposition: Home, Self-Care Condition: Fair Functional capacity at discharge: independent ambulation Overall status at discharge: patient is back to baseline - Discharge Instructions Follow Up With: NO,PCP [Primary Care Provider] - Yasmin Kent DO [Resident] - - Diet and Activity Activity: increase activity as tolerated Diet: low salt diet Hospital course: Mr. Brown is a 52 year old male with past medical history significant for bipolar disorder and previous TIA and stroke who presented to the hospital for sudden onset left upper extremity numbness and slurred speech. He was evaluated in the emergency department for stroke versus TIA. He was deemed not a candidate for tPA and was placed in observation. His symptoms improved. He had an MRI of the brain and MRA of the head and neck which showed no abnormalities. Today he appears to be back to his baseline. Of note he had a recent admission to [facility] that time 8 days ago he received tPA for similar symptoms. During that admission MRI of the brain was negative. Due to the patient's bipolar disorder and concern for somatizations disorder we consulted psychiatry who evaluated him and recommended no further inpatient needs and no medication adjustment. He will follow-up with his outpatient counseling therapist. He asks for a full STD panel which I have advised him to obtain was his primary care physician. He will be given a follow-up appointment and residency clinic. - Time Spent with Patient Total time spent providing and/or coordinating discharge services: - Constitutional Vitals: Temp Pulse Resp BP Pulse Ox 97.9 F 61 18 114/79 96 07/02/17 06:54 05/11/17 06:54 05/11/17 06:54 05/11/17 06:54 05/11/17 06:54 General appearance: Present: A&O X 3, answers questions appropriately - Cardiovascular Cardiovascular exam: Present: RRR, +S1, +S2. Absent: diastolic murmur, gallop, rubs, systolic murmur - Extremities Exam Extremities exam: Present: warm, radial pulses palpable and symetrical. Absent : calf tenderness, cyanotic, pedal edema - Skin Skin exam: Present: dry, intact - VTE Documentation of Mechanical Device: Graduated compression elastic hosiery
== END 2017-05-11 15:52 | disposition home or self-care (01) ==
LOC: EMEROO 11:28 → 2NENU 11:28 → SUATTDRO 13:45 → 2NENU 15:20
PROVIDERS: ADMIT Internal Medicine; ATTEND Internal Medicine

== ENCOUNTER 2017-06-14 01:53 | Observation (INO) ==
[2017-06-14 02:41] LABS: Basophils # 0.1 K/mcL (0.0-0.2); Basophils % 0.7 %; Eosinophils # 0.3 K/mcL (0.0-0.6); Eosinophils % 3.5 %; Hemoglobin 13.8 g/dL (12.9-16.9); Immature Granulocytes % 0.4 % (0-4); Lymphocytes # 1.9 K/mcL (0.6-4.6); Lymphocytes % 22.2 %; Mean Corpuscular HGB Conc 33.7 g/dL (31.6-35.5); Mean Corpuscular Hemoglobin 30.9 pg (28.0-33.3); Mean Corpuscular Volume 91.7 fL (83.0-100.0); Mean Platelet Volume 9.4 fL (9.4-12.4); Monocytes # 0.4 K/mcL (0.0-1.3); Monocytes % 4.7 %; Neutrophils # 5.7 K/mcL (1.6-8.9); Platelet Count 201 K/mcL (140-400); Red Blood Count 4.47 M/mcL (4.19-5.50); Red Cell Distribution Width 13.6 % (11.5-14.5); Segmented Neutrophils % 68.5 %
[2017-06-14 02:49] LABS: Activated Partial Thrombo Time 32.7 Seconds (26.0-36.0)
[2017-06-14 02:59] LABS: BUN/Creatinine Ratio 13 (6-26); Blood Urea Nitrogen 11 mg/dL (8-26); Calcium 9.1 mg/dL (8.6-10.8); Carbon Dioxide 26 mEq/L (19-29); Chloride 108 mEq/L (98-109); Glucose 94 mg/dL (70-99); Osmolality,Calculated 289 (280-300); Potassium 3.8 mEq/L (3.5-4.5); Sodium 140 mEq/L (136-145); eGFR For African Americans > 60 (> 60); eGFR For Non-African Americans > 60 (> 60)
[2017-06-14 03:00] LABS: Ethanol < 10 mg/dL (0-10)
--- NOTE | 2017-06-14 03:08 | Emergency Department Note ---
Disposition Clinical Impression: Left-sided weakness, Facial numbness Disposition: Admitted As Inpatient Condition: Good Neuro HPI - General Chief Complaint: ED Neuro Symptoms/Deficit Stated Complaint: L weakness/slurred speech Time Seen by Provider: 06/14/17 01:55 Source: patient, EMS Limitations: no limitations Nursing Notes Reviewed: Yes Vital Signs Reviewed: Yes - History of Present Illness HPI Narrative: Patient here for evaluation of possible stroke. Patient had the onset of initial symptoms at 120. The patient noticed a worsening left arm and left leg weakness with decreased ability to find words as well as a specific words. Patient states she has had similar symptoms with his previous strokes. Symptoms completely resolved after his first dose of TPA in November in [place]. Since his last stroke 6 weeks ago where he also received TPA patient has had some minor residual symptoms into slight arm weakness and facial numbness. I was the one to evaluate him in the ED and administer TPA upon his last admission. The patient went to [facility] where he continued to have mild left-sided symptoms. After discussion with [facility] neurology team over the robot the patient was worked up and found to have no objective data in regards to previous stroke. The patient was recently evicted from his motel and has been having girlfriend problems. Patient has a very clear sensorium and is able to appropriately answer questions. Upon pronator drift patient is able to correct his downward motion which is slightly abnormal. This is not a clear-cut situation but after discussion with neurology they do feel that there is no benefit to admission to [facility] for what has not shown objective data that requires intervention. CTA of the head and neck will be performed. - Related Data Home Medications: Home Medications Medication Instructions Recorded Confirmed Benztropine Mesylate 2 mg PO BID 10/28/16 05/09/17 Gabapentin [Neurontin] 900 mg PO TID 10/28/16 05/09/17 Eschbach Carbonate 300 mg PO BID 10/28/16 05/09/17 Losartan Potassium [Cozaar] 25 mg PO DAILY 10/28/16 05/09/17 Venlafaxine HCl [Venlafaxine HCl 225 mg PO DAILY 10/28/16 05/09/17 ER] Atorvastatin Calcium [Lipitor] 20 mg PO DAILY 05/09/17 05/09/17 Oxybutynin [Ditropan] 10 mg PO TID 05/09/17 05/09/17 Potassium Chloride [Klor-Con] 20 meq PO DAILY 05/09/17 05/09/17 Testosterone Cypionate 100 mg IM QWEEK 05/09/17 05/09/17 [Depo-Testosterone] Venlafaxine HCl [Venlafaxine HCl 75 mg PO 05/09/17 ER] Previous Rx's Medication Instructions Recorded Acetaminophen w/Cod 300-30 mg 1 each PO Q8HR PRN #4 tablet 04/19/17 [Tylenol w/Codeine #3] Aspirin Enteric Coated [Aspirin EC] 325 mg PO DAILY #30 tablet. 05/11/17 OxyCODONE/APAP 5/325 [Percocet 1 each PO Q6HR PRN #30 tablet 05/11/17 5/325 MG] Acetaminophen w/Cod 300-30 mg 1 each PO Q8HR PRN #10 tablet 05/26/17 [Tylenol w/Codeine #3] Doxycycline 100 mg PO BID #14 capsule 05/29/17 Mupirocin Calcium [Bactroban] 15 gm TP BID #1 cream..g. 05/29/17 Allergies/Adverse Reactions: Allergies Allergy/AdvReac Type Severity Reaction Status Date / Time cephalexin [From Keflex] Allergy Severe Anaphylaxis Verified 04/25/17 21:45 latex Allergy Mild Hives Verified 05/26/17 02:13 clams Allergy Anaphylaxis Verified 05/26/17 02:13 tramadol Allergy Seizure Verified 05/26/17 02:13 Review of Systems: CONSTITUTIONAL: No weight loss, fever, chills, weakness or fatigue. HEENT: Eyes: No visual changes. Ears, Nose, Throat: No hearing loss, difficulty talking or unable to swallow. SKIN: No rash or itching. CARDIOVASCULAR: No chest pain, chest pressure or chest discomfort. No palpitations or edema. RESPIRATORY: No shortness of breath, cough or sputum. GASTROINTESTINAL: No anorexia, nausea, vomiting or diarrhea. No abdominal pain or blood. GENITOURINARY: No burning on urination or hematuria. NEUROLOGICAL: Patient states that he has a harder time finding words. Has a harder time saying specific words including "S". Difficulty moving the left arm and the left leg more than previous. Decreased sensation to face as well as the left arm and leg. MUSCULOSKELETAL: No muscle pain, back pain, joint pain or stiffness. Past Medical History - Past Medical History Medical history: Reports: CHF, coronary artery disease, CVA, hypertension, migraine, myocardial infarction, pulmonary embolus, seizures, TIA, other Surgical history: Reports: cholecystectomy, hip replacement, orthopedic, other, other Psychiatric history: Reports: anxiety, bipolar, depression, PTSD - Social History Smoking Status: Never smoker Smokeless Tobacco Status: No Alcohol use: Reports: occasionally Drug use: Reports: none Physical Exam General appearance: NAD, conversant Eyes: anicteric sclerae, moist conjunctivae; PERRL HENT: Atraumatic; oropharynx clear with moist mucous membranes and no mucosal ulcerations Neck: Normal inspection; Trachea midline; FROM, supple Lungs: CTA, with normal respiratory effort and no intercostal retractions CV: RRR, no MRGs Abdomen: Soft, non-tender; no rebound or gaurding Extremities: No peripheral edema or extremity lymphadenopathy Skin: Normal temperature; no rash, ulcers or lesions Psych: flat affect - General Limitations: no limitations General appearance: alert - Expanded Neurological Exam Patient oriented to: Present: person, place, time Speech: Present: fluid speech Cranial nerves: EOM function (II, III, IV, ): Normal, facial sensation (V): Abnormal Left, facial palsy (VII): Normal, gag reflex (IX): Normal, spinal accessory function (XI): Normal, tongue deviation (XII): Normal Cerebellar function: finger to nose: Abnormal Left, heel to coleman: Abnormal Left Motor strength - LUE: 4/5 Motor strength - RUE: 5/5 Motor strength - LLE: 4/5 Motor strength - RLE: 5/5 Sensory exam upper extremity: light touch: Abnormal Left Sensory exam lower extremity: light touch: Abnormal Left Coma Scale Eye Opening: Spontaneous Coma Scale Motor Response: Obeys Commands Coma Scale Verbal Response: Oriented Coma Scale Total: 15 Course - Reevaluation(s) Reevaluation #1: Patient reevaluated with stated improvement in symptoms. Patient is comfortable staying at our facility. - Consultations Consultation #1: Discussed with [facility] neurology. It stayed at bedside during her exam. Overall the patient has received TPA twice in the past. Most recent time being approximately 6 weeks ago. First episode of TPA was in [place]. After the patient was evaluated by robot the patient was deemed to not be a TPA candidate. Due to the patient receiving TPA 6 weeks ago without complete resolution of symptoms and no evidence of stroke on previous NEUROIMAGING. During the [facility] neurology exam the patient did offer new information in regards to his social situation which includes being evicted from a motel earlier today. The patient is also undergoing relationship issues with his girlfriend that he did not initially give us in history. Neurology recommended a CTA of the head and neck. If there is an abnormal finding they would like to accept the patient to their facility for further possible treatment. If there is no evidence of abnormality on CTA of the head or neck, the patient can be kept at [facility] to be further evaluated for evidence of stroke. Consultation #2: Discussed with Dr. Flanagan. He requests a MRI with in the emergency department and discharged home. At this time MRI is not available on the patient's symptoms have not completely resolved. Patient does not have a home or facilities to be discharged to. The patient may need rehabilitation secondary to worsening weakness. Patient has multiple reasons to need to stay in the hospital. Patient accepted for admission. Vital Signs Temperature 97.8 F 06/14/17 01:57 Pulse Rate 58 06/14/17 01:57 Respiratory Rate 16 06/14/17 01:57 Blood Pressure 120/85 06/14/17 01:57 O2 Sat by Pulse Oximetry 100 06/14/17 01:57 Temperature 97.8 F 06/14/17 01:57 Pulse Rate 67 06/14/17 02:44 Respiratory Rate 16 06/14/17 02:44 Blood Pressure 122/107 06/14/17 02:44 O2 Sat by Pulse Oximetry 99 06/14/17 02:31 Oxygen Delivery Oxygen Delivery Room Air Neuro Symptoms/Deficit - Medical Records Medical records reviewed: Yes I reviewed the patient's medical records. - Lab Data Lab results reviewed: Yes I reviewed the patient's lab results. Result diagrams: 06/14/17 02:28 06/14/17 02:28 Lab Results 06/14/17 06/14/17 06/14/17 Range/Units 02:28 02:28 02:28 WBC 8.3 (4.3-11.1) K/mcL RBC 4.47 (4.19-5.50) M/mcL Hgb 13.8 (12.9-16.9) g/dL Hct 41.0 (37.5-50.1) % MCV 91.7 (83.0-100.0) fL MCH 30.9 (28.0-33.3) pg MCHC 33.7 (31.6-35.5) g/dL RDW 13.6 (11.5-14.5) % Plt Count 201 (140-400) K/mcL MPV 9.4 (9.4-12.4) fL Immature Gran % 0.4 (0-4) % Seg Neutrophils % 68.5 % Lymphocytes % 22.2 % Monocytes % 4.7 % Eosinophils % 3.5 % Basophils % 0.7 % Neutrophils # 5.7 (1.6-8.9) K/mcL Lymphocytes # 1.9 (0.6-4.6) K/mcL Monocytes # 0.4 (0.0-1.3) K/mcL Eosinophils # 0.3 (0.0-0.6) K/mcL Basophils # 0.1 (0.0-0.2) K/mcL PT 11.0 (9.4-12.1) Seconds INR 1.0 APTT 32.7 (26.0-36.0) Seconds Sodium 140 (136-145) mEq/L Potassium 3.8 (3.5-4.5) mEq/L Chloride 108 (98-109) mEq/L Carbon Dioxide 26 (19-29) mEq/L BUN 11 (8-26) mg/dL Creatinine 0.82 (0.72-1.25) mg/dL Est GFR ( Amer) > 60 (> 60) Est GFR (Non-Af Amer) > 60 (> 60) BUN/Creatinine Ratio 13 (6-26) Glucose 94 (70-99) mg/dL Calculated Osmolality 289 (280-300) Calcium 9.1 (8.6-10.8) mg/dL Troponin I (0-0.03) ng/mL Ethyl Alcohol < 10 (0-10) mg/dL 06/14/17 Range/Units 02:28 WBC (4.3-11.1) K/mcL RBC (4.19-5.50) M/mcL Hgb (12.9-16.9) g/dL Hct (37.5-50.1) % MCV (83.0-100.0) fL MCH (28.0-33.3) pg MCHC (31.6-35.5) g/dL RDW (11.5-14.5) % Plt Count (140-400) K/mcL MPV (9.4-12.4) fL Immature Gran % (0-4) % Seg Neutrophils % % Lymphocytes % % Monocytes % % Eosinophils % % Basophils % % Neutrophils # (1.6-8.9) K/mcL Lymphocytes # (0.6-4.6) K/mcL Monocytes # (0.0-1.3) K/mcL Eosinophils # (0.0-0.6) K/mcL Basophils # (0.0-0.2) K/mcL PT (9.4-12.1) Seconds INR APTT (26.0-36.0) Seconds Sodium (136-145) mEq/L Potassium (3.5-4.5) mEq/L Chloride (98-109) mEq/L Carbon Dioxide (19-29) mEq/L BUN (8-26) mg/dL Creatinine (0.72-1.25) mg/dL Est GFR ( Amer) (> 60) Est GFR (Non-Af Amer) (> 60) BUN/Creatinine Ratio (6-26) Glucose (70-99) mg/dL Calculated Osmolality (280-300) Calcium (8.6-10.8) mg/dL Troponin I 0.00 (0-0.03) ng/mL Ethyl Alcohol (0-10) mg/dL - Radiology Data Radiology results reviewed: Yes I reviewed the patient's radiology results. Head CT 06/14/17 02:01 IMPRESSION: No acute intracranial abnormality. Stroke alert results were called by Dr. Tarik Ybarra MD to Kranthi Thomas on 06/14/2017 at 02:35. D/ / Tarik Ybarra MD / Tarik Ybarra MD Interpreting Provider: Tarik Ybarra MD Head CTA 06/14/17 03:01 IMPRESSION: Unremarkable CTA of the head and neck. D/ / César Gallardo MD / César Gallardo MD Interpreting Provider: César Gallardo MD Neck CTA 06/14/17 03:01 IMPRESSION: Unremarkable CTA of the head and neck. D/ / César Gallardo MD / César Gallardo MD Interpreting Provider: César Gallardo MD - EKG Data EKG attestation: Yes I reviewed and interpreted this EKG. EKG results narrative: Sinus bradycardia with first-degree AV block, heart rate 56, no acute ischemic changes. EKG shows normal: sinus rhythm Rate: bradycardia Heart block present: 1st Degree Interpretation: no acute changes, unchanged when compared to prior tracing (date ) (06/10/2017) Critical Care Time Critical Care Time: Yes Total Critical Care Time: 60 Attestation: Critical care performed: Time is exclusive of separately billable procedures. Time includes: direct patient care, patient reassessment, coordination of patient care, interpretation of data (laboratory data, radiology data, and respiratory data), review of patient's medical records, medical consultation and documentation of patient care. Procedures included in critical care time: Procedures excluded from critical care time: Attestation Statement - Attestation Attestation: I, Keshawn Coleman MD, personally evaluated this patient and discussed their management with the resident physician. I reviewed the resident's note and agree with the documented findings, medical decision making, and plan of care. 52-year-old male presents to the emergency department by ambulance with a complaint of acute onset of left-sided weakness and difficulty with speech about 1:20 AM this morning. Onset was while at rest. Patient does have a history of previous stroke symptoms and received TPA about 6 weeks ago for similar symptoms. He admits to some headache. He states that he has some mild left-sided weakness residual from his previous stroke but is acutely worse tonight. On examination patient is a well-developed well-nourished female in no acute distress. He is alert and oriented 3. There is no cyanosis or diaphoresis. No obvious facial droop noted. No obvious slurred speech noted. He does seem to have some mild left arm weakness. Breath sounds are clear and equal bilaterally. Heart regular rate and rhythm. Abdomen is soft and nontender with normal bowel sounds. Labs reviewed in totally normal. Head CT negative. Stroke alert was called and patient was evaluated by the [facility] neurologist via the stroke robot. They recommended no TPA and obtain a CTA of the head and neck. If no acute lesions on this patient can be kept here for further evaluation. CTA of the head and neck was unremarkable. The hospitalist, Dr. Flanagan, was consulted and accepted admission of the patient.
[2017-06-14] MEDS ORDERED: Naloxone 0.4 MG/ML INJ IVP PRN (09:53)
[2017-06-14] MEDS ORDERED: *HR* HYDROcodone/Acet 5/325 mg TABLET PO PRN (09:53)
[2017-06-14] MEDS ORDERED: Ondansetron 4 MG/2 ML VIAL IVP PRN (09:53)
[2017-06-14] MEDS ORDERED: *HR* Morphine 2 MG/ML SYRINGE IVP PRN (09:53)
[2017-06-14] MEDS: 0.9 % Sodium Chloride 1,000 ML IVC SCH (11:15)
--- NOTE | 2017-06-14 12:39 | Internal Med History&Physical ---
<David Shen - Last Filed: 06/14/17 13:19> Date of Encounter: 06/14/17 Time of Encounter: 08:30 Assessment and Plan (1) Left-sided weakness Current visit: Yes Status: Acute Patient presents with complaint of facial numbness and left-sided weakness due to possible CVA. Patient reports onset of initial symptoms at 1:20 AM today when he noticed left arm and left weakness and difficulty speaking. Patient reports he had similar symptoms from previous strokes which she was given TPA treatment. Patient was outside window of TPA treatment today. Upon examination, patient has minor speech slurring which may be residual effects of stroke he reports 7-8 weeks ago. NIHSS protocol ordered with NPO status until dysphagia screen passed. Padded bed rails and safety/falls precautions ordered. CT of the head today without contrast shows no acute intracranial abnormality. CTA of the head and neck today is unremarkable. Negative portable chest x-ray today. Patient to be monitored closely for signs of neurological decline. Will consider neuro consult based on any adverse changes in status. (2) Facial numbness Current visit: Yes Status: Acute Patient presents with complaint of facial numbness and left-sided weakness due to possible CVA. Patient reports onset of initial symptoms at 1:20 AM today when he noticed left arm and left weakness and difficulty speaking. Patient reports he had similar symptoms from previous strokes which she was given TPA treatment. Patient was outside window of TPA treatment today. Upon examination, patient has minor speech slurring which may be residual effects of stroke he reports 7-8 weeks ago. NIHSS protocol ordered with NPO status until dysphagia screen passed. Padded bed rails and safety/falls precautions ordered. CT of the head today without contrast shows no acute intracranial abnormality. CTA of the head and neck today is unremarkable. Negative portable chest x-ray today. Patient to be monitored closely for signs of neurological decline. Will consider neuro consult based on any adverse changes in status. (3) CAD (coronary artery disease) Current visit: Yes Status: Chronic Patient presents with history of chronic coronary artery disease. Patient placed on continuous cardiac telemetry. Will continue patient's statin and hypertension medications as well as aspirin therapy. Qualifiers: Coronary Disease-Associated Artery/Lesion type: unspecified vessel or lesion type [place] vs. transplanted heart: [place] heart Associated angina: angina presence unspecified Qualified Code(s): I25.10 - Atherosclerotic heart disease of [place] coronary artery without angina pectoris (4) Chronic diastolic CHF (congestive heart failure) Current visit: Yes Status: Chronic Patient presents with history of chronic diastolic CHF. IV fluids to be used judiciously and to monitor patient for signs of fluid overload and administer Lasix when necessary. (5) Hypertension Current visit: Yes Status: Chronic He presents with history of chronic hypertension. Will monitor patient's vital signs and continue his losartan. Qualifiers: Hypertension type: essential hypertension Qualified Code(s): I10 - Essential (primary) hypertension (6) HLD (hyperlipidemia) Current visit: Yes Status: Chronic Patient presents with history of chronic hyperlipidemia. Lipid panel ordered. Will continue patient's Lipitor. Qualifiers: Hyperlipidemia type: pure hypercholesterolemia Qualified Code(s): E78.00 - Pure hypercholesterolemia, unspecified; E78.0 - Pure hypercholesterolemia (7) DVT prophylaxis Current visit: Yes Status: Acute Patient to be placed on DVT prophylaxis due to current admission protocol and bedrest status. Heparin 5,000 units SQ Q8 ordered. Internal Medicine - H&P: HPI Chief complaint: Neurological Deficit Symptoms Admitted From: Emergency Dept Plans for Post Hospital Care: Home History of present illness: Mr. Brown is a 52 year old male who presents from the ED with chief complaint of neurological deficit symptoms related to possible stroke. Patient reports here onset of initial symptoms at 1:20 AM today when he noticed left arm and left weakness and difficulty speaking. Patient reports he had similar symptoms from previous strokes which she was given TPA treatment. Upon admission patient 's lab work and vital signs are basically unremarkable. Upon examination patient has mildly noted left-sided weakness and pronator drift of the left arm which is correctable. It is unclear if this is residual deficit from previous stroke 7-[address] of the head without contrast today shows no acute intracranial abnormality CTA of the head without and with contrast today shows unremarkable CTA of the head and neck. Patient does report some stressors including being evicted from his motel as well as having girlfriend problems. Patient's medical history includes CHF, CAD, CVA, HTN, migraine, [place] in 2006, PE 3, prescription-induced seizures, and TIAs. Upon examination patient is able to answer questions appropriately and clearly with some minor speech deficit, which may be due to residual effects of previous stroke. Patient is at moderate risk for CVA event based on history and will be placed as observation status. NIHSS protocol to be followed with padded bed rails, NPO status until dysphagia screen is passed, falls/safety precautions, aspirin therapy, and heparin SQ for DVT prophylaxis. Bilateral carotid duplex imaging and venous Doppler of LEs ordered as well. Patient to be monitored closely for signs of neurological decline and will consider neurology consult based on any changes in status. Time spent with patient greater than 40 minutes. Past Med Surg Social Fam HX - Past Medical History Source: patient Medical history: CHF, coronary artery disease, CVA, hypertension, migraine, myocardial infarction, pulmonary embolus, seizures, TIA, other Psychiatric history: anxiety, bipolar, depression, PTSD - Past Surgical History Surgical History: cholecystectomy, hip replacement (Bilateral), orthopedic, other (Right meniscus, left ACL), other - Social History Smoking Status: Never smoker Smokeless Tobacco Status: No Alcohol use: occasionally Drug use: none Current living situation: Home Activity Level: Independent ambulation Recent Out of Country Travel Within the Last 8 Weeks: No Exposure or Possible Exposure to Illness During Travel: No - Family History Father Adopted: Yes Living Status: Hx Family Cardiac Disorders: Yes Mother History Unknown: Yes Adopted: Yes Internal Medicine - H&P: Meds Benztropine Mesylate 2 mg PO BID 10/28/16 [History] Gabapentin [Neurontin] 900 mg PO TID 10/28/16 [History] [place] Carbonate 300 mg PO BID 10/28/16 [History] Losartan Potassium [Cozaar] 25 mg PO DAILY 10/28/16 [History] Venlafaxine HCl [Venlafaxine HCl ER] 225 mg PO DAILY 10/28/16 [History] Atorvastatin Calcium [Lipitor] 20 mg PO DAILY 05/09/17 [History] Oxybutynin [Ditropan] 10 mg PO TID 05/09/17 [History] Potassium Chloride [Klor-Con] 20 meq PO DAILY 05/09/17 [History] Testosterone Cypionate [Depo-Testosterone] 100 mg IM QWEEK 05/09/17 [History] Aspirin Enteric Coated [Aspirin EC] 325 mg PO DAILY #30 tablet. 05/11/17 [Rx] OxyCODONE/APAP 5/325 [Percocet 5/325 MG] 1 each PO Q6HR PRN #30 tablet 05/11/17 [Rx] Acetaminophen w/Cod 300-30 mg [Tylenol w/Codeine #3] 1 each PO Q8HR PRN #10 tablet 05/26/17 [Rx] Doxycycline 100 mg PO BID #14 capsule 05/29/17 [Rx] Mupirocin Calcium [Bactroban] 15 gm TP BID #1 cream..g. 05/29/17 [Rx] Allergies cephalexin [From Keflex] Allergy (Severe, Verified 04/25/17 21:45) Anaphylaxis latex Allergy (Mild, Verified 05/26/17 02:13) Hives clams Allergy (Verified 05/26/17 02:13) Anaphylaxis tramadol Allergy (Verified 05/26/17 02:13) Seizure All Systems PM: A 10-system review of systems was performed and is negative for pertinent findings except as documented above in the HPI. - Constitutional Constitutional: no chills, no fever(s), no night sweats - EENT Eyes: no change in vision, no discharge, no pain, no photophobia Ears: no ear discharge, no ear pain, no tinnitus Nose, mouth and throat: no dysphagia, no nasal discharge, no neck pain, no sore throat - Breasts Breasts: as per HPI - Cardiovascular Cardiovascular ROS IM: no chest pain, no diaphoresis, no dyspnea, no lightheadedness, no palpitations, no syncope - Respiratory Respiratory: no cough, no dyspnea, no wheezing, no excessive phlegm production - Gastrointestinal Gastrointestinal: no abdominal pain, no diarrhea, no hematemesis, no hematochezia, no melena, no nausea, no vomiting - Genitourinary Genitourinary ROS male: as per HPI - Musculoskeletal Musculoskeletal ROS IM: as per HPI, numbness (Left arm and leg), tingling - Integumentary Integumentary IM: no rash, no unusual bruising - Neurological Neurological ROS: as per HPI, abnormal speech, numbness, tingling - Psychiatric Psychiatric: as per HPI - Endocrine Endocrine IM: as per HPI - Hematologic/Lymphatic Hematologic/Lymphatic: no easy bruising - Allergic/Immunologic Allergic/Immunologic: as per HPI - Constitutional Vitals: Temp Pulse Resp BP Pulse Ox 97.6 F 77 18 117/72 95 06/14/17 12:22 06/14/17 12:22 06/14/17 12:22 06/14/17 12:22 06/14/17 12:22 General appearance: Present: cooperative, A&O X 3, pleasant, no acute distress, obese, answers questions appropriately - Head Head exam: Present: atraumatic, normocephalic - Eye Eye exam: Present: PERRL, conjuntiva pink, sclera anicteric Pupils: Present: PERRL - ENT ENT exam: Present: normal exam, normal external ear exam - Neck Neck exam general surgery: Present: supple, trachea midline. Absent: lymphadenopathy - Respiratory Respiratory exam: Present: CTAB. Absent: accessory muscle use, rales, rhonchi, wheezes - Cardiovascular Cardiovascular exam: Present: RRR, +S1, +S2. Absent: diastolic murmur, gallop, rubs, systolic murmur - GI/Abdominal GI/Abdominal exam: Present: normal bowel sounds, soft, no peritoneal signs. Absent: distended, tenderness - Rectal Rectal exam: Present: deferred - Additional comments: exam deferred. - Extremities Exam Extremities exam: Present: warm, radial pulses palpable and symetrical. Absent : calf tenderness, cyanotic, pedal edema - Back Exam Back exam: Present: normal inspection - Neurological Exam Neurological exam: Present: CN II-XII intact, oriented X3, no focal deficits, pronater drift (Left, correctable). Absent: facial droop, speech deficit - Psychiatric Psychiatric exam: Present: normal affect, normal mood - Skin Skin exam: Present: dry, intact Internal Med - H&P Results - Labs CBC & Chem 7: 06/14/17 02:28 06/14/17 02:28 - EKG Data EKG shows normal: sinus rhythm Rate: bradycardia - EKG Data Prior EKG available for review: yes EKG comments: 06/14/17 12:50 EKG dated 06/10/17 shows sinus rhythm. EKG dated 06/14/17 shows sinus bradycardia with first-degree AV block. - Diagnostic Studies CT scan - head Additional comments: Impressions Head CT 06/14/17 02:01 IMPRESSION: No acute intracranial abnormality. Stroke alert results were called by Dr. Tarik Ybarra MD to Kranthi Thomas on 06/14/2017 at 02:35. D/ / Tarik Ybarra MD / Tarik Ybarra MD Interpreting Provider: Tarik Ybarra MD Other Images Additional comments: Impressions Head CTA 06/14/17 03:01 IMPRESSION: Unremarkable CTA of the head and neck. D/ / César Gallardo MD / César Gallardo MD Interpreting Provider: César Gallardo MD Neck CTA 06/14/17 03:01 IMPRESSION: Unremarkable CTA of the head and neck. D/ / César Gallardo MD / César Gallardo MD Interpreting Provider: César Gallardo MD <Yrn Bocanegra - Last Filed: 06/14/17 16:25> Date of Encounter: 06/14/17 Internal Medicine - H&P: HPI History of present illness: Mr. Brown is a 52 year old male All Systems PM: A 10-system review of systems was performed and is negative for pertinent findings except as documented above in the HPI. - Constitutional Vitals: Temp Pulse Resp BP Pulse Ox 97.7 F 65 18 113/69 95 06/14/17 15:43 06/14/17 15:43 06/14/17 15:43 06/14/17 15:43 06/14/17 15:43 Internal Med - H&P Results - Labs CBC & Chem 7: 06/14/17 02:28 06/14/17 02:28 - Attending Attestation I have seen and examined the patient. I have reviewed the orders and the note. Patient is a 52-year-old male with a past medical history of coronary artery disease, CHF, multiple CVAs, hypertension, PE, seizure disorder, anxiety, bipolar disorder and depression. He presents to the ED this morning with complaints of left arm weakness and difficulty speaking. Initial lab work is benign. Initial CT of the head is negative for any acute intracranial abnormality. CT angiogram of the head and neck were also done and was normal. Patient does have a history of PE and multiple TIAs and small strokes. He has been on anticoagulation the past but he has discontinued this for reasons that are unclear. The patient's stressors at this time include being evicted from his motel and also having problems and fights with his girlfriend. Patient is awake and alert. Not in any distress. His speech is clear. On examination he does not have any obvious focal deficits. He is able to provide good history. No other acute events or complaints at this time. Denies chest pain or shortness of breath or dizziness or headache. Denies fever or diarrhea or vomiting or cough. Patient is being admitted for left-sided weakness and facial numbness. He will be on aspirin and statin. He will be on NIHSS protocol. CT angiogram head and neck is normal. Patient has passed his dysphagia screen and will be able to tolerate oral diet. Patient has been explained about his condition and plan of care. He understood and agreed. No unanswered questions. CODE STATUS full code. Heart rate 65, blood pressure 113/69, O2 sat 95% on room air, temperature 97.7. Heart S1-S2 positive no murmurs or rubs. Lungs bilateral good entry no wheezes or crackles. Abdomen soft nontender no masses or guarding. Extremities no edema. Neurological awake and alert and oriented, no obvious focal deficits, speech is clear.
[2017-06-14] MEDS ORDERED: Aspirin Enteric Coated 81 MG Tablet PO SCH (12:45)
[2017-06-14] MEDS: *HR* Heparin 5,000 UNIT/ML VIAL SQ SCH ×2 (13:02→21:21)
[2017-06-14] MEDS ORDERED: Venlafaxine XR (24 HR) 75 MG CAP.ER.24H PO SCH (14:00)
[2017-06-14] MEDS: Gabapentin 300 MG CAPSULE PO SCH ×2 (14:30→21:21)
[2017-06-14] MEDS: *HR* LORazepam 2 MG/ML VIAL IVP PRN (14:30)
[2017-06-14] MEDS: Venlafaxine XR (24 HR) 75 MG CAP.ER.24H PO SCH (14:30)
[2017-06-14] MEDS: Acetaminophen 325 MG TABLET PO PRN (14:30)
[2017-06-14] MEDS: Lithium Carbonate 300 MG CAPSULE PO SCH (21:21)
[2017-06-15] MEDS: Acetaminophen 325 MG TABLET PO PRN ×3 (00:01→14:03)
[2017-06-15] MEDS: 0.9 % Sodium Chloride 1,000 ML IVC SCH (02:20)
[2017-06-15 05:52] LABS: Basophils % 0.8 %; Eosinophils # 0.4 K/mcL (0.0-0.6); Eosinophils % 7.2 %; Hematocrit 34.5 % (37.5-50.1); Immature Granulocytes % 0.2 % (0-4); Lymphocytes # 1.7 K/mcL (0.6-4.6); Lymphocytes % 35.6 %; Mean Corpuscular HGB Conc 33.3 g/dL (31.6-35.5); Mean Corpuscular Hemoglobin 30.2 pg (28.0-33.3); Mean Corpuscular Volume 90.6 fL (83.0-100.0); Mean Platelet Volume 9.5 fL (9.4-12.4); Monocytes # 0.3 K/mcL (0.0-1.3); Monocytes % 6.2 %; Neutrophils # 2.4 K/mcL (1.6-8.9); Platelet Count 155 K/mcL (140-400); Red Blood Count 3.81 M/mcL (4.19-5.50); Red Cell Distribution Width 13.7 % (11.5-14.5)
[2017-06-15 05:53] LABS: Hemoglobin 11.5 g/dL (12.9-16.9)
[2017-06-15 05:56] LABS: INR 1.1; Prothrombin Time 11.6 Seconds (9.4-12.1)
[2017-06-15 05:59] LABS: Activated Partial Thrombo Time 34.3 Seconds (26.0-36.0)
[2017-06-15 06:06] LABS: BUN/Creatinine Ratio 15 (6-26); Blood Urea Nitrogen 10 mg/dL (8-26); Calcium 8.1 mg/dL (8.6-10.8); Carbon Dioxide 25 mEq/L (19-29); Chloride 115 mEq/L (98-109); Chol/HDL Ratio 2.4 (0-4.9); Glucose 92 mg/dL (70-99); HDL Cholesterol 29 mg/dL (40-59); LDL Cholesterol,Calculated 27 mg/dL (0-99); Magnesium 1.7 mg/dL (1.6-2.6); Osmolality,Calculated 295 (280-300); Potassium 3.6 mEq/L (3.5-4.5); Sodium 143 mEq/L (136-145); Triglycerides 72 mg/dL (< 150); eGFR For African Americans > 60 (> 60); eGFR For Non-African Americans > 60 (> 60)
[2017-06-15 06:07] LABS: Cholesterol 70 mg/dL (< 200)
[2017-06-15] MEDS: *HR* Heparin 5,000 UNIT/ML VIAL SQ SCH ×3 (06:58→22:23)
[2017-06-15] MEDS: Pantoprazole 40 MG VIAL IVP SCH (10:30)
[2017-06-15] MEDS: Venlafaxine XR (24 HR) 75 MG CAP.ER.24H PO SCH (10:31)
[2017-06-15] MEDS: Gabapentin 300 MG CAPSULE PO SCH ×3 (10:31→22:23)
[2017-06-15] MEDS: Lithium Carbonate 300 MG CAPSULE PO SCH ×2 (10:32→22:24)
[2017-06-15] MEDS: Aspirin Enteric Coated 325 MG Tablet PO SCH (10:32)
[2017-06-15 10:54] LABS: Bilirubin,Urine Negative (Negative); Blood,Urine Negative (Negative); Clarity,Urine Cloudy (Clear); Color,Urine Yellow (Yellow); Glucose,Urine (UA) Normal (Normal); Ketones,Urine Negative (Negative); Leukocyte Esterase,Urine Negative (Negative); Nitrite,Urine Negative (Negative); Protein,Urine 30 mg/dL (Neg-Trace); Specific Gravity,Urine 1.022 (1.010-1.025); Urobilinogen,Urine Normal (Normal)
[2017-06-15 10:56] LABS: Bacteria,Urine None Seen per hpf (None-Few); Hyaline Casts,Urine Moderate per lpf (None-Few); RBC,Urine 0-3 per hpf (0-3); Squamous Epithelial Cell,Urine Many per lpf (None-Few)
[2017-06-15 11:00] LABS: Amphetamine Screen,Urine Negative ng/mL (Cutoff=1000); Barbiturate Screen,Urine Negative ng/mL (Cutoff=200); Benzodiazepines Screen,Urine Negative ng/mL (Cutoff=200); Cannabinoid Screen,Urine Negative ng/mL (Cutoff = 50); Cocaine Screen,Urine Negative ng/mL (Cutoff= 300); Opiate Screen,Urine Negative ng/mL (Cutoff=300); Phencyclidine Screen,Urine Negative ng/mL (Cutoff=25)
--- NOTE | 2017-06-15 17:44 | Internal Med Progress Note ---
Date of Encounter: 06/16/17 Time of Encounter: 17:42 - Assessment and plan (1) Cerebrovascular accident Current Visit: Yes Status: Acute Qualifiers: CVA mechanism: unspecified Qualified Code(s): I63.9 - Cerebral infarction, unspecified (2) Pulmonary embolism Current Visit: Yes Status: Inactive Qualifiers: Pulmonary embolism type: other Chronicity: unspecified Acute cor pulmonale presence: without acute cor pulmonale Qualified Code(s): I26.99 - Other pulmonary embolism without acute cor pulmonale (3) DVT (deep venous thrombosis) Current Visit: Yes Status: Inactive Qualifiers: DVT location: lower extremity Affected thrombotic vein of extremity: unspecified vein of extremity Chronicity: unspecified Laterality: unspecified laterality Qualified Code(s): I82.409 - Acute embolism and thrombosis of unspecified deep veins of unspecified lower extremity (4) Hypertension Current Visit: Yes Status: Chronic Qualifiers: Hypertension type: essential hypertension Qualified Code(s): I10 - Essential (primary) hypertension (5) HLD (hyperlipidemia) Current Visit: Yes Status: Chronic Qualifiers: Hyperlipidemia type: pure hypercholesterolemia Qualified Code(s): E78.00 - Pure hypercholesterolemia, unspecified; E78.0 - Pure hypercholesterolemia - Subjective Interval history: Patient with history of hypertension and dyslipidemia presented with the facial numbness and upper extremity weakness which seems to be improving. Patient had multiple strokes in the past for TPA. CT of the head and brain unremarkable. Ultrasound of the carotid was also done which is negative bilateral lower extremity ultrasound is also negative for DVT considering to the repeated nature of the illness I will order an echocardiogram of the heart as last one was done in 2015 and involve neurology. Patient had 2 CVAs in this area in which he needed TPA. He was recommended to be on anticoagulation but with Coumadin his INR is very erratic and his insurance had very high co-pay for other anticoagulants. Discuss the case with Dr. Guevara who plans to see the patient. He is requesting MRI brain which will be ordered. - Constitutional Vitals: Temp Pulse Resp BP Pulse Ox 97.8 F 67 18 117/69 97 06/15/17 14:59 06/15/17 14:59 06/15/17 14:59 06/15/17 14:59 06/15/17 14:59 General appearance: Present: cooperative, A&O X 3, pleasant, no acute distress, obese, answers questions appropriately - Head Head exam: Present: atraumatic, normocephalic - Eye Eye exam: Present: PERRL, conjuntiva pink, sclera anicteric Pupils: Present: PERRL - Neck Neck exam general surgery: Present: supple, trachea midline. Absent: lymphadenopathy - Respiratory Respiratory exam: Present: CTAB. Absent: accessory muscle use, rales, rhonchi, wheezes - Cardiovascular Cardiovascular exam: Present: RRR, +S1, +S2. Absent: diastolic murmur, gallop, rubs, systolic murmur - GI/Abdominal GI/Abdominal exam: Present: normal bowel sounds, soft, no peritoneal signs. Absent: distended, tenderness - Extremities Exam Extremities exam: Present: warm, radial pulses palpable and symetrical. Absent : calf tenderness, cyanotic, pedal edema - Neurological Exam Neurological exam: Present: CN II-XII intact, oriented X3, no focal deficits. Absent: pronater drift, facial droop, speech deficit - Skin Skin exam: Present: dry, intact Internal Medicine: Result - Labs CBC & Chem 7: 06/15/17 05:28 06/15/17 05:28 Labs: Short CBC 06/15/17 Range/Units 05:28 WBC 4.8 (4.3-11.1) K/mcL Hgb 11.5 L D (12.9-16.9) g/dL Hct 34.5 L (37.5-50.1) % Plt Count 155 (140-400) K/mcL Neutrophils # 2.4 (1.6-8.9) K/mcL BMP 06/15/17 05:28 Sodium 143 Potassium 3.6 Chloride 115 H Carbon Dioxide 25 BUN 10 Creatinine 0.67 L Glucose 92 Calcium 8.1 L Urine 06/15/17 Range/Units 10:45 Urine Color Yellow (Yellow) Urine Clarity Cloudy A (Clear) Urine pH 6.0 (5.0-8.0) pH Units Ur Specific [place] 1.022 (1.010-1.025) Urine Protein 30 H (Neg-Trace) mg/dL Urine Glucose (UA) Normal (Normal) mg/dL - ABG Interpretation ABG results: PT/INR, D-dimer PT 11.6 Seconds (9.4-12.1) 06/15/17 05:28 Consult Discharge Plan - Plan Referrals: Rickie Chavira MD [Non-Partnered Physician] - 06/25/17 10:15 am
[2017-06-16] MEDS: *HR* Heparin 5,000 UNIT/ML VIAL SQ SCH ×2 (05:23→15:43)
[2017-06-16] MEDS: Acetaminophen 325 MG TABLET PO PRN (05:55)
[2017-06-16] MEDS: Venlafaxine XR (24 HR) 75 MG CAP.ER.24H PO SCH (09:55)
[2017-06-16] MEDS: Lithium Carbonate 300 MG CAPSULE PO SCH (09:55)
[2017-06-16] MEDS: Pantoprazole 40 MG VIAL IVP SCH (09:55)
[2017-06-16] MEDS: Gabapentin 300 MG CAPSULE PO SCH ×2 (09:56→15:44)
[2017-06-16] MEDS: Aspirin Enteric Coated 325 MG Tablet PO SCH (09:56)
[2017-06-16] MEDS: *HR* LORazepam 2 MG/ML VIAL IVP PRN (13:14)
--- NOTE | 2017-06-16 15:06 | Carotid Imaging Report ---
Carotid Duplex Patient Name:Tam Brown Order Number:[id number] Procedure Date:06/14/2017 Date:1965Age:52 yrs Gender:Male Rt.BP:113 / 69 mmHgHeart Rate: Location:[facility] Room #: 2NE22 Director Process Improvement:Misty Lennon, RVT, RDCS Referring MD:David Shen, ANALYSIS CONSULTANT large animal veterinarian:None Reading MD:Sarwat Baeza MD , FACS Primary Indications:stroke symptoms Risk Factors Yes/No Hypertension Yes Diabetes No Hypercholesterolemia No Hx of CVA Yes Impressions: Findings: Bilateral carotid systems essentially normal. Findings Carotid Duplex: [place]nam[place] scale imaging combined with Doppler flow analysis suggests normal findings bilaterally. Right: The right proximal common carotid artery has a PSV of 89 cm/s and a EDV of 20 cm/s. The right mid common carotid artery has a PSV of 72 cm/s and a EDV of 23 cm/s. The right distal common carotid artery has a PSV of 75 cm/s and a EDV of 20 cm/s. The right bifurcation has a PSV of 54 cm/s and a EDV of 14 cm/s. The right proximal internal carotid artery has a PSV of 47 cm/s and a EDV of 10 cm/s. The right mid internal carotid artery has a PSV of 44 cm/s and a EDV of 15 cm/s. The right distal internal carotid artery has a PSV of 49 cm/s and a EDV of 16 cm/s. The right eca has a PSV of 67 cm/s and a EDV of 12 cm/s. The right vertebral artery has a PSV of 44 cm/s and a EDV of 14 cm/s. Left: The left proximal common carotid artery has a PSV of 101 cm/s and a EDV of 30 cm/s. The left mid common carotid artery has a PSV of 90 cm/s and a EDV of 19 cm/s. The left distal common carotid artery has a PSV of 90 cm/s and a EDV of 21 cm/s. The left bifurcation has a PSV of 70 cm/s and a EDV of 14 cm/s. The left proximal internal carotid artery has a PSV of 61 cm/s and a EDV of 17 cm/s. The left mid internal carotid artery has a PSV of 58 cm/s and a EDV of 21 cm/s. The left distal internal carotid artery has a PSV of 70 cm/s and a EDV of 33 cm/s. The left eca has a PSV of 63 cm/s and a EDV of 13 cm/s. The left vertebral artery has a PSV of 56 cm/s and a EDV of 17 cm/s. Carotid Results Right PSV EDV Assessment Proximal CCA 89 20 Mid CCA 72 23 Distal CCA 75 20 Bifurcation 54 14 Proximal ICA 47 10 Mid ICA 44 15 Distal ICA 49 16 ECA 67 12 Vertebral Artery 44 14 Left PSV EDV Assessment Proximal CCA 101 30 Mid CCA 90 19 Distal CCA 90 21 Bifurcation 70 14 Proximal ICA 61 17 Mid ICA 58 21 Distal ICA 70 33 ECA 63 13 Vertebral Artery 56 17 Ratio's Right ICA/CCA Ratio: 0.68 Left ICA/CCA Ratio: 0.68 Updated by Sarwat Baeza MD, FACS on 06/15/2017 9:23:55 AM Sarwat Baeza MD electronically signed on 06/15/2017 9:24:16 AM with status of Final
--- NOTE | 2017-06-16 15:07 | Venous Imaging Report ---
LE Venous Duplex Patient Name:Tam Brown Order Number:[id number] Procedure Date:06/14/2017 Date:1965Age:52 yrs Gender:Male Location:[facility] Room #: 2NE22 Terrazzo Installer:Misty Lennon RVT, CHARLES Referring MD:David Shen, DIRECTOR OF MAINTENANCE injection machine operator:None Reading MD:Sarwat Baeza MD , FACS Primary Indications:stroke symptoms Secondary Indications: Risk Factors Yes/No Hypertension Yes Smoker Previous Yes Anticoagulants Yes Impressions: Bilateral lower extremity: normal superficial and deep exam. Recommendations: Test completed on 06/14/2017 at 6:42:05 pm. Critical findings reported to Kyung MANUEL in person at 6:42:18 pm on 06/14/2017 by Misty Lennon RVT, CHARLES. Findings Venous Duplex Results: Right: Venous imaging of the lower extremity reveals full patency and normal vessel compressibility of the right distal iliac, right common femoral, right superficial femoral, right popliteal, right posterior tibial, right peroneal, right saphenofemoral junction, right great saphenous and right lesser saphenous. Doppler signals in the evaluated veins were normal. Left: Venous imaging of the lower extremity reveals full patency and normal vessel compressibility of the left distal iliac, left common femoral, left superficial femoral, left popliteal, left posterior tibial, left peroneal, left saphenofemoral junction, left great saphenous and left lesser saphenous. Doppler signals in the evaluated veins were normal. Lower Extremity Venous Duplex Side Vein Compress Spontaneous Flow Augment Diameter (cm) Depth (cm) Right Distal Iliac Normal Yes Phasic Yes Right Common Femoral Normal Yes Phasic Yes Right Superficial Femoral Normal Yes Phasic Yes Right Popliteal Normal Yes Phasic Yes Right Posterior Tibial Normal Yes Phasic Yes Right Peroneal Normal Yes Phasic Yes Right Saphenofemoral [place] Normal Yes Phasic Yes Right Great Saphenous Normal Yes Phasic Yes Right Lesser Saphenous Normal Yes Phasic Yes Left Distal Iliac Normal Yes Phasic Yes Left Common Femoral Normal Yes Phasic Yes Left Superficial Femoral Normal Yes Phasic Yes Left Popliteal Normal Yes Phasic Yes Left Posterior Tibial Normal Yes Phasic Yes Left Peroneal Normal Yes Phasic Yes Left Saphenofemoral [place] Normal Yes Phasic Yes Left Great Saphenous Normal Yes Phasic Yes Left Lesser Saphenous Normal Yes Phasic Yes Updated by Sarwat Baeza MD, FACS on 06/15/2017 9:29:09 AM Sarwat Baeza MD electronically signed on 06/15/2017 9:29:31 AM with status of Final
--- NOTE | 2017-06-16 15:10 | Electrocardiograph Report ---
[place] [address] Test Date: 2017-06-14 Pat Name: Tam Brown Department: 104 Room: [facility] Gender: M [employer]dnance Artificer: : 1965 Requested By: David Shen Order Number: [id number] Reading MD: Verónica Forrester Measurements Intervals [place] Rate: 56 P: 33 AR: 226 QRS: 43 QRSD: 105 T: 59 QT: 444 QTc: 435 Interpretive Statements PROBABLE SINUS BRADYCARDIA NONSPECIFIC ST FINDINGS Electronically Signed On 06-15-2017 12:05:00 EDT by Verónica Forrester
[2017-06-16 16:04] VITALS: BP 138/82
--- NOTE | 2017-06-16 16:08 | Neurology - Consult Note ---
Date of Encounter: 06/16/17 Time of Encounter: 15:00 Assessment and Plan (1) Factitious disorder Current Visit: Yes Status: Acute Per medical records and medical history, the patient has been having rather frequent, multiple neurological complaints mimicking CVA leading to multiple hospital admissions and has had two incidences of tPA administration, which could be potentially harmful if associated wit bleeding disorder. Per medical records, the suspicion of Factitious disorder has been strongly suggested by [facility] neurology where he were being treated and worked up extensively. It was reported that his neurological examination were non-consistent with physiological disease but function in nature. Patient has had two rPA thrombolytic treatment and in both cases the subsequent MRI of brain scanning showed no evidence of stroke, or prior stroke. Although it may be argued that in both instances the negative MRI of brain of evidence of stroke could be because of the effectiveness of the treatment, considering all the factors together it is thought that over treatment or testing may actually cause harm in this patient due to the fact that such stroke like presentation often lead to tPA treatment in the ER. AT this time, will recommend only MRI of brain to rule out acute infarct. Pt will follow up with psychiatrist as suggested by [facility] and he already has an appointment with them. Pt should follow up with PCP to update his medical and psychiatric condition. Not sure how his medical records will be available if in case he goes to other [facility] facilities, seeking similar treatment History of Present Illness Chief complaint: left sided weakness and slurred speech HPI: Mr. Brown is a 52 year old male with PMH significant for bipolar disorder, possible factitious disorder, CAD, history of pulmonary embolism, SVT, history of obstructive sleep apnea thyroid nodules and tardive dyskinesia who presented to the emergency room with new onset of worsening left-sided weakness involving left arm and leg as well as some speech difficulty described as difficulty finding the right word. Initial CT of the head showed no acute intracranial abnormality. Patient does have history of recent multiple presentations with neurological complaints and as a matter of fact, patient had received TPA thrombolytic therapy twice in the past, last one being during April 2017 where he received TPA treatment and transferred to [facility] neurology. Reportedly, there the patient had full stroke workup including MRI of the brain. After the event during April 2017, the patient was strongly suspected of having factitious disorder due to multiple repetitive similar neurological presentation without obstructive radiological findings as well as rapid resolution of neurological symptoms once being admitted to the hospital. As a matter fact, the patient again presented to [facility] neurology about 10 days ago and there he had CT of the head which was reported negative. Patient neurological examination was also found to be "consistent with a functional symptoms. Neurology was recommended no further workup her [facility] medical records. The patient was recommended to follow-up with psychiatry as an outpatient. Patient is currently taking aspirin daily. Currently, the patient denies significant neurological deficits. His left- sided weakness the sensory resolved as well as his speech difficulty. Patient' s initial CT of the head showed no acute intracranial abnormality. Patient had CT and grandma of the neck and head which also showed unremarkable studies.. Past Med Surg Social Fam HX - Past Medical History Medical history: CHF, coronary artery disease, CVA, hypertension, migraine, myocardial infarction, pulmonary embolus, seizures, TIA, other Psychiatric history: anxiety, bipolar, depression, PTSD - Past Surgical History Surgical History: cholecystectomy, hip replacement (Bilateral), orthopedic, other (Right meniscus, left ACL), other - Social History Smoking Status: Never smoker Smokeless Tobacco Status: No Alcohol use: occasionally Drug use: none - Family History Mother History Unknown: Yes Adopted: Yes Father Adopted: Yes Living Status: Hx Family Cardiac Disorders: Yes Medications and Allergies Benztropine Mesylate 2 mg PO BID 10/28/16 [History] Gabapentin [Neurontin] 900 mg PO TID 10/28/16 [History] [place] Carbonate 300 mg PO BID 10/28/16 [History] Losartan Potassium [Cozaar] 25 mg PO DAILY 10/28/16 [History] Venlafaxine HCl [Venlafaxine HCl ER] 225 mg PO DAILY 10/28/16 [History] Atorvastatin Calcium [Lipitor] 20 mg PO DAILY 05/09/17 [History] Oxybutynin [Ditropan] 10 mg PO TID 05/09/17 [History] Potassium Chloride [Klor-Con] 20 meq PO DAILY 05/09/17 [History] Testosterone Cypionate [Depo-Testosterone] 100 mg IM QWEEK 05/09/17 [History] Aspirin Enteric Coated [Aspirin EC] 325 mg PO DAILY #30 tablet. 05/11/17 [Rx] OxyCODONE/APAP 5/325 [Percocet 5/325 MG] 1 each PO Q6HR PRN #30 tablet 05/11/17 [Rx] Doxycycline 100 mg PO BID #14 capsule 05/29/17 [Rx] Mupirocin Calcium [Bactroban] 15 gm TP BID #1 cream..g. 05/29/17 [Rx] Allergies cephalexin [From Keflex] Allergy (Severe, Verified 04/25/17 21:45) Anaphylaxis latex Allergy (Mild, Verified 05/26/17 02:13) Hives clams Allergy (Verified 05/26/17 02:13) Anaphylaxis tramadol Allergy (Verified 05/26/17 02:13) Seizure All Systems: A 10-system review of systems was performed and is negative for pertinent findings except as documented above in the HPI. Physical Examination - Vital Signs Vital Signs: Initial Vital Signs Temp Pulse Resp BP Pulse Ox 97.8 F 58 16 120/85 100 06/14/17 01:57 06/14/17 01:57 06/14/17 01:57 06/14/17 01:57 06/14/17 01:57 - Constitutional General appearance: comfortable - Neurologic Sensorimotor examination: intact Detailed motor examination: grossly full strength in all extremities Motor examination - right side: 5/5: deltoids, biceps, triceps, wrist flexion, wrist extension, machine coremaker, hip flexors, tibialis Anterior, quadriceps, toe extension (EHL), plantarflexion Reflexes: Biceps: 1+, Triceps: 1+, Brachioradialis: 1+, Patella: 1+, Achilles: 1 + Mental Status Examination: awake, alert, oriented to person, oriented to place, oriented to time, follows commands appropriately, answers questions appropriately, no agnosia, no aphasia, no aproxia Cranial nerve examination: PERRL, EOMI, visual ron intact, corneal reflexes brisk symmetrically, sensory to face intact, mastication intact, no facial asymmetry is present, no dysarthria, hearing is intact symmetrically, soft palate elevates bilaterally upon phonation, gag reflex intact, flexes SCM and trapezius muscles symmetrically with full power, tongue protrudes midline, no atrophy or facial fasiculations present Cerebellar examination: no dysmetria, performs finger to nose and heel to coleman symmetrically without ataxia, no gait ataxia, no truncal ataxia, no difficulty with rapid alternating movements Results - Laboratory Findings CBC and BMP: 06/15/17 05:28 06/15/17 05:28 Abnormal lab findings: Abnormal lab results RBC 3.81 M/mcL (4.19-5.50) L 06/15/17 05:28 Hgb 11.5 g/dL (12.9-16.9) L D 06/15/17 05:28 Hct 34.5 % (37.5-50.1) L 06/15/17 05:28 Chloride 115 mEq/L (98-109) H 06/15/17 05:28 Creatinine 0.67 mg/dL (0.72-1.25) L 06/15/17 05:28 POC Glucose 100 (58-89) H 06/14/17 02:01 Calcium 8.1 mg/dL (8.6-10.8) L 06/15/17 05:28 HDL Cholesterol 29 mg/dL (40-59) L 06/15/17 05:28 Urine Clarity Cloudy (Clear) A 06/15/17 10:45 Urine Protein 30 mg/dL (Neg-Trace) H 06/15/17 10:45 Urine Microscopic WBC 3-5 per hpf (0-3) H 06/15/17 10:45 Ur Squamous Epith Cells Many per lpf (None-Few) H 06/15/17 10:45 Hyaline Casts Moderate per lpf (None-Few) H 06/15/17 10:45 Consult Discharge Plan - Plan Referrals: Rickie Chavira MD [Non-Partnered Physician] - 06/25/17 10:15 am
--- NOTE | 2017-06-16 17:16 | Discharge Summary ---
Date of Encounter: 06/16/17 Time of Encounter: 17:13 - Discharge Diagnosis (1) Cerebrovascular accident Priority: Primary Status: Acute Qualifiers: CVA mechanism: unspecified Qualified Code(s): I63.9 - Cerebral infarction, unspecified (2) Hypertension Priority: Secondary Status: Chronic Qualifiers: Hypertension type: essential hypertension Qualified Code(s): I10 - Essential (primary) hypertension (3) HLD (hyperlipidemia) Priority: Secondary Status: Chronic Qualifiers: Hyperlipidemia type: pure hypercholesterolemia Qualified Code(s): E78.00 - Pure hypercholesterolemia, unspecified; E78.0 - Pure hypercholesterolemia (4) DVT (deep venous thrombosis) Priority: Secondary Status: Inactive Qualifiers: DVT location: lower extremity Affected thrombotic vein of extremity: unspecified vein of extremity Chronicity: unspecified Laterality: unspecified laterality Qualified Code(s): I82.409 - Acute embolism and thrombosis of unspecified deep veins of unspecified lower extremity - Discharge Medications Home Medications: Benztropine Mesylate 2 mg PO BID 10/28/16 [History] Gabapentin [Neurontin] 900 mg PO TID 10/28/16 [History] [place] Carbonate 300 mg PO BID 10/28/16 [History] Losartan Potassium [Cozaar] 25 mg PO DAILY 10/28/16 [History] Venlafaxine HCl [Venlafaxine HCl ER] 225 mg PO DAILY 10/28/16 [History] Atorvastatin Calcium [Lipitor] 20 mg PO DAILY 05/09/17 [History] Oxybutynin [Ditropan] 10 mg PO TID 05/09/17 [History] Potassium Chloride [Klor-Con] 20 meq PO DAILY 05/09/17 [History] Aspirin Enteric Coated [Aspirin EC] 325 mg PO DAILY #30 tablet. 05/11/17 [Rx] OxyCODONE/APAP 5/325 [Percocet 5/325 MG] 1 each PO Q6HR PRN #30 tablet 05/11/17 [Rx] Doxycycline 100 mg PO BID #14 capsule 05/29/17 [Rx] Mupirocin Calcium [Bactroban] 15 gm TP BID #1 cream..g. 05/29/17 [Rx] Allergies/Adverse Reactions: Allergies cephalexin [From Keflex] Allergy (Severe, Verified 04/25/17 21:45) Anaphylaxis latex Allergy (Mild, Verified 05/26/17 02:13) Hives clams Allergy (Verified 05/26/17 02:13) Anaphylaxis tramadol Allergy (Verified 05/26/17 02:13) Seizure Procedures/tests Complete & Pending: Procedures Performed prior 72 hours Category Date Time Status MR head/brain wo con [MR] Routine MRI 06/16/17 11:52 Completed ECG 12 lead ECG [ECG] Routine Y 06/14/17 09:53 Completed EV carotid duplex imaging BI Routine Y 06/14/17 10:02 Completed EV echocardiogram Routine Y 06/16/17 17:44 Completed Venous Doppler [EV venous imaging LE BI] Routine Y 06/14/17 10:03 Completed Date of admission: 06/14/17 06:05 Primary care physician: PCP NONE Consults: 06/14/17 07:07 Consult to Pastoral Services [CONS] Routine Comment: Consult to Medical Housekeeper [CONS] Routine Reason for SW Consult: pt is homeless 06/14/17 09:56 Consult to Occupational Therapy [CONS] Routine Comment: Evaluate, develop and implement POC Reason for Consult: Patient has history of strokes with left-sided weakness. Is experiencing left-sided weakness again w/new stroke symptoms Consult to Physical Therapy [CONS] Routine Comment: Evaluate, develop and implement POC Reason for Consult: Patient has history of strokes with left-sided weakness. Is experiencing left-sided weakness again w/new stroke symptoms Consult to Speech Therapy [CONS] Routine Comment: Evaluate, develop and implement POC Reason for Consult: Patient has history of strokes with left-sided weakness. Is experiencing left-sided weakness again w/new stroke symptoms as well as some speech difficulties Call Completed: No 06/15/17 17:40 Consult to Neurology [CONS] Routine Consulting Provider: [facility] Reason for Consult: cva Time Notified: 17:40 Call Completed: No Discharging clinician: Taco Kinsey Anticipated date of discharge: 06/16/17 - Patient Status Disposition: Home, Self-Care Condition: Good Functional capacity at discharge: independent ambulation Overall status at discharge: patient is progressing back to baseline - Discharge Instructions Follow Up With: Rickie Chavira MD [Non-Partnered Physician] - 06/25/17 10:15 am - Diet and Activity Activity: resume usual activities as tolerated Diet: advance to your usual diet, low fat, low cholesterol, low salt diet Hospital course: Mr. Brown is a 52 year old male .the patient presented with the facial numbness and left-sided numbness. He was out of size event of TPA. His record reviewed and it was noted he had similar symptoms before and at least on 2 occasions TPA was given. Interestingly post TPA MRI did not show any defect. Patient records from [facility] will obtain and it was noted that very recently he was there and he failed to mention this while he has been admitted here and we ask him very detailed history and physical. In any case medical record was reviewed with Dr. Guevara who is a neurologist for consult. Per medical records and medical history, the patient has been having rather frequent, multiple neurological complaints mimicking CVA leading to multiple hospital admissions and has had two incidences of tPA administration, which could be potentially harmful if associated wit bleeding disorder. Per medical records, the suspicion of Factitious disorder has been strongly suggested by [facility] neurology where he were being treated and worked up extensively. It was reported that his neurological examination were non-consistent with physiological disease but function in nature. Patient has had two rPA thrombolytic treatment and in both cases the subsequent MRI of brain scanning showed no evidence of stroke, or prior stroke. During this admission patient had CTA of brain and neck along with ultrasound of neck echocardiogram MRI of the brain. All tests are unremarkable. Plan discuss with Dr. Guevara and at this point we will discharge the patient. He is advised to follow with psychiatry and his family doctor. He already has an appointment with his psychiatrist. - Time Spent with Patient Total time spent providing and/or coordinating discharge services: Greater than 30 minutes - Constitutional Vitals: Temp Pulse Resp BP Pulse Ox 97.9 F 75 16 138/82 95 06/16/17 16:01 06/16/17 16:01 06/16/17 16:01 06/16/17 16:01 06/16/17 16:01 General appearance: Present: cooperative, A&O X 3, pleasant, no acute distress, obese, answers questions appropriately - Head Head exam: Present: atraumatic, normocephalic - Eye Eye exam: Present: PERRL, conjuntiva pink, sclera anicteric Pupils: Present: PERRL - Neck Neck exam general surgery: Present: supple, trachea midline. Absent: lymphadenopathy - Respiratory Respiratory exam: Present: CTAB. Absent: accessory muscle use, rales, rhonchi, wheezes - Cardiovascular Cardiovascular exam: Present: RRR, +S1, +S2. Absent: diastolic murmur, gallop, rubs, systolic murmur - GI/Abdominal GI/Abdominal exam: Present: normal bowel sounds, soft, no peritoneal signs. Absent: distended, tenderness - Extremities Exam Extremities exam: Present: warm, radial pulses palpable and symetrical. Absent : calf tenderness, cyanotic, pedal edema - Neurological Exam Neurological exam: Present: CN II-XII intact, oriented X3, no focal deficits. Absent: pronater drift, facial droop, speech deficit - Skin Skin exam: Present: dry, intact
[2017-06-16] MEDS ORDERED: Nystatin POWDER 30 GM BOTTLE TP SCH (21:00)
== END 2017-06-16 19:03 | disposition home or self-care (01) ==
LOC: EMEROO 01:53 → 2NENU 01:53
PROVIDERS: ADMIT Internal Medicine; ATTEND Internal Medicine

== ENCOUNTER 2017-06-23 15:42 | Observation (INO) ==
--- NOTE | 2017-06-23 16:10 | Emergency Department Note ---
Disposition Clinical Impression: Chest pain Qualifiers: Chest pain type: unspecified Qualified Code(s): R07.9 - Chest pain, unspecified Disposition: Admitted As Inpatient Condition: Good Instructions: Chest Pain (ED) Referrals: NONE,PCP [Non-Partnered Physician] - Time of Disposition: 19:28 General Adult HPI - General Chief complaint: ED Chest Pain Stated complaint: Chest pain Time Seen by Provider: 06/23/17 15:49 Source: patient, EMS Nursing Notes Reviewed: Yes Vital Signs Reviewed: Yes - History of Present Illness HPI Narrative: Patient is a 52-year-old male with past medical history of coronary artery disease, one stent, diabetes, TIA, seizures and CHF presenting with complaint of chest pain that began 1 hour prior to arrival. She describes this chest pain is substernal and aching 5 out of 10 pain. It is not exertional. He states prior to the chest pain starting yesterday also had left jaw pain and left arm pain that started yesterday evening around 8:00 PM. States he is currently nauseous however he has not experienced any vomiting, diaphoresis, exertional chest pain or shortness of breath. Pain Scale: 8 - Related Data Home Medications Medication Instructions Recorded Confirmed Benztropine Mesylate 2 mg PO BID 10/28/16 06/23/17 Gabapentin [Neurontin] 900 mg PO TID 10/28/16 06/23/17 [place] Carbonate 300 mg PO BID 10/28/16 06/23/17 Losartan Potassium [Cozaar] 25 mg PO DAILY 10/28/16 06/23/17 Venlafaxine HCl [Venlafaxine HCl 225 mg PO HS 10/28/16 06/23/17 ER] Atorvastatin Calcium [Lipitor] 20 mg PO HS 05/09/17 06/23/17 Oxybutynin [Ditropan] 10 mg PO TID 05/09/17 06/23/17 Potassium Chloride [Klor-Con] 10 - 20 meq PO BID 05/09/17 06/23/17 Carbidopa/Levodopa 25/100 [Sinemet 1 each PO TID 06/23/17 06/23/17 25/100] HYDROcodone/Acet 5/325 mg [[place] 1 tab PO Q6H PRN 06/23/17 06/23/17 5-325 mg] LORazepam [Ativan] 2 mg PO ONCE PRN 06/23/17 06/23/17 Nitroglycerin [Nitrostat] 0.4 mg SL Q5M PRN 06/23/17 06/23/17 Ranitidine HCl [Zantac] 150 mg PO HS 06/23/17 06/23/17 Testosterone Cypionate [Testone 150 mg IM TH 06/23/17 06/23/17 Cik] Previous Rx's Medication Instructions Recorded Aspirin Enteric Coated [Aspirin EC] 325 mg PO DAILY #30 tablet. 05/11/17 Allergies Allergy/AdvReac Type Severity Reaction Status Date / Time cephalexin [From Keflex] Allergy Severe Anaphylaxis Verified 04/25/17 21:45 latex Allergy Mild Hives Verified 05/26/17 02:13 ceftriaxone [From Rocephin] Allergy Anaphylaxis Verified 06/23/17 19:08 clams Allergy Anaphylaxis Verified 05/26/17 02:13 tramadol Allergy Seizure Verified 05/26/17 02:13 All systems ED: reviewed and negative except as stated. Constitutional: Denies: fever, chills Cardiovascular: Reports: chest pain. Denies: palpitations, dyspnea on exertion , orthopnea, edema, syncope, paroxysmal nocturnal dyspnea Respiratory: Denies: cough, dyspnea, wheezes Gastrointestinal: Reports: nausea. Denies: abdominal pain, vomiting Musculoskeletal: Reports: neck pain. Denies: back pain Neurological: Denies: headache, weakness Past Medical History - Past Medical History Medical history: Reports: CHF, coronary artery disease, CVA, hypertension, migraine, myocardial infarction, pulmonary embolus, seizures, TIA, other Surgical history: Reports: cholecystectomy, hip replacement (Bilateral), orthopedic, other (Right meniscus, left ACL), other Psychiatric history: Reports: anxiety, bipolar, depression, PTSD - Social History Smoking Status: Never smoker Smokeless Tobacco Status: No Alcohol use: Reports: occasionally Drug use: Reports: none Physical Exam Patient does not appear to be in any acute distress. He is sitting up in bed smiling and watching television. - General Limitations: no limitations General appearance: alert, in no apparent distress - Head Head exam: atraumatic, normocephalic, normal inspection - Eye Eye exam: Present: normal appearance, PERRL, EOMI - ENT ENT exam: normal exam, normal oropharynx, mucous membranes moist - Neck Neck exam: Present: normal inspection, full ROM, trachea midline. Absent: tenderness - Chest Chest inspection: Present: normal inspection, symmetric chest wall rise. Absent : tenderness - Respiratory Respiratory exam: Present: normal lung sounds bilaterally. Absent: respiratory distress - Cardiovascular Cardiovascular exam: Present: regular rate, normal rhythm, normal heart sounds - Abdominal Exam Abdominal exam: Present: soft, Non-Tender, normal bowel sounds - Extremities Exam Extremities exam: Present: normal inspection, full ROM, normal capillary refill. Absent: tenderness, pedal edema, joint swelling, calf tenderness - Expanded Lower Extremity Exam Neurovascular/Tendon exam: Present: normal capillary refill. Absent: pulse deficit - Back Exam Back exam: Present: normal inspection, full ROM. Absent: tenderness - Neurological Exam Neurological exam: Present: alert, oriented X3 - Psychiatric Psychiatric exam: Present: normal affect, normal mood - Skin Skin exam: Present: warm, dry, intact, normal color Course Course Narrative: I reviewed the patients medical history. He has multiple visits in the last 2 months and beyond. He was seen on 06/16/2017 for an echocardiogram which showed LVEF of 55-60%. Normal LV chamber size, wall thickness and function. All wall segments showed normal motion. Plantars perform a cardiac workup of the patient including troponins, chest x-ray and EKG and then pending results will determine disposition for the patient. Most likely consult with cardiology on this patient's case. - Reevaluation(s) Reevaluation #1: I updated the patient on his labs. Discussed that his troponin here was negative his EKG did not show signs of an acute infarction this chest x-ray was normal. I discussed a plan to consult with his per diem interpreter to discuss discharge or admission. Patient agrees with the plan. Time: 17:59 Reevaluation #2: I spoke with Dr. Raza from cardiology. He states he is unfamiliar with the patient at this time he recommends admission for the patient based on his cardiac history and presentation. Time: 18:27 Reevaluation #3: I discussed the patient case with Saba Sepulveda hospitalist on-call and she agrees to admit. Time: 19:28 Vital Signs Temperature 98.2 F 06/23/17 15:44 Pulse Rate 98 06/23/17 15:44 Respiratory Rate 15 06/23/17 15:44 Blood Pressure 136/90 06/23/17 15:44 O2 Sat by Pulse Oximetry 98 06/23/17 15:44 Temperature 98.2 F 06/23/17 15:44 Pulse Rate 97 06/23/17 18:34 Respiratory Rate 18 06/23/17 18:34 Blood Pressure 121/89 06/23/17 18:34 O2 Sat by Pulse Oximetry 100 06/23/17 18:34 Oxygen Delivery Oxygen Delivery Room Air Medical Decision Making - Medical Records Medical records reviewed: Yes I reviewed the patient's medical records. - Lab Data Lab results reviewed: Yes I reviewed the patient's lab results. Result diagrams: 06/23/17 16:41 06/23/17 16:41 Lab Results 06/23/17 06/23/17 06/23/17 Range/Units 16:41 16:41 16:41 WBC 5.5 (4.3-11.1) K/mcL RBC 4.34 (4.19-5.50) M/mcL Hgb 13.3 (12.9-16.9) g/dL Hct 40.1 (37.5-50.1) % MCV 92.4 (83.0-100.0) fL MCH 30.6 (28.0-33.3) pg MCHC 33.2 (31.6-35.5) g/dL RDW 14.1 (11.5-14.5) % Plt Count 191 (140-400) K/mcL MPV 9.2 L (9.4-12.4) fL Immature Gran % 0.2 (0-4) % Seg Neutrophils % 70.7 % Lymphocytes % 20.1 % Monocytes % 6.3 % Eosinophils % 2.2 % Basophils % 0.5 % Neutrophils # 3.9 (1.6-8.9) K/mcL Lymphocytes # 1.1 (0.6-4.6) K/mcL Monocytes # 0.4 (0.0-1.3) K/mcL Eosinophils # 0.1 (0.0-0.6) K/mcL Basophils # 0.0 (0.0-0.2) K/mcL Sodium 137 (136-145) mEq/L Potassium 3.8 (3.5-4.5) mEq/L Chloride 107 (98-109) mEq/L Carbon Dioxide 25 (19-29) mEq/L BUN 6 L (8-26) mg/dL Creatinine 0.86 (0.72-1.25) mg/dL Est GFR ( Amer) > 60 (> 60) Est GFR (Non-Af Amer) > 60 (> 60) BUN/Creatinine Ratio 7 (6-26) Glucose 97 (70-99) mg/dL Calculated Osmolality 282 (280-300) Calcium 9.2 (8.6-10.8) mg/dL Troponin I 0.00 (0-0.03) ng/mL - Radiology Data Radiology results reviewed: Yes I reviewed the patient's radiology results. Chest X-Ray 06/23/17 16:10 IMPRESSION: No acute cardiopulmonary disease. D/ / Carlos Enrique Cleveland MD / Carlos Enrique Cleveland MD Interpreting Provider: Carlos Enrique Cleveland MD - EKG Data EKG #1 EKG attestation: Yes I reviewed and interpreted this EKG. EKG results narrative: I interpreted his EKG done at 15:46. The EKG is sinus rhythm at a rate of 95 bpm. Normal axis. GA is 167, QRS is 106, QT is 354, QTC is 407 user within normal limits. No ST elevations or depressions or Q waves.
[2017-06-23] MEDS ORDERED: Ondansetron ODT 4 MG TAB.RAPDIS SL ONE (16:12)
--- NOTE | 2017-06-23 16:39 | Emergency Department Note ---
START Narrative - START START: I examined this patient and my medical decision-making was reviewed with the OPERATING SYSTEM DESIGNER/PA/Advanced Practice Nurse/Resident Physician. I agree with the documented findings, disposition and treatment plan as described except to the extent set forth below. ED attending: Patient's emergency medicine resident Dr. THOMAS. Please see copy of this note for H&P evaluation and management and ED disposition. We both had independent [id number] time in contact with this patient. Briefly: A 2-year-old male history of A. fib NM stroke presents with chest pain by EMS for several hours waiting to his left arm. EKG shows no acute ischemic changes when compared to prior. Chest x-ray troponin and other screening labs pending. Dr. Bee is his aged or disabled carer and will be consult. Disposition pending
[2017-06-23 17:00] LABS: Basophils % 0.5 %; Eosinophils # 0.1 K/mcL (0.0-0.6); Eosinophils % 2.2 %; Hematocrit 40.1 % (37.5-50.1); Hemoglobin 13.3 g/dL (12.9-16.9); Immature Granulocytes % 0.2 % (0-4); Lymphocytes # 1.1 K/mcL (0.6-4.6); Lymphocytes % 20.1 %; Mean Corpuscular HGB Conc 33.2 g/dL (31.6-35.5); Mean Corpuscular Hemoglobin 30.6 pg (28.0-33.3); Mean Corpuscular Volume 92.4 fL (83.0-100.0); Mean Platelet Volume 9.2 fL (9.4-12.4); Monocytes # 0.4 K/mcL (0.0-1.3); Monocytes % 6.3 %; Neutrophils # 3.9 K/mcL (1.6-8.9); Platelet Count 191 K/mcL (140-400); Red Blood Count 4.34 M/mcL (4.19-5.50); Red Cell Distribution Width 14.1 % (11.5-14.5); Segmented Neutrophils % 70.7 %
[2017-06-23 17:13] LABS: BUN/Creatinine Ratio 7 (6-26); Blood Urea Nitrogen 6 mg/dL (8-26); Calcium 9.2 mg/dL (8.6-10.8); Carbon Dioxide 25 mEq/L (19-29); Chloride 107 mEq/L (98-109); Glucose 97 mg/dL (70-99); Osmolality,Calculated 282 (280-300); Potassium 3.8 mEq/L (3.5-4.5); Sodium 137 mEq/L (136-145); eGFR For African Americans > 60 (> 60); eGFR For Non-African Americans > 60 (> 60)
[2017-06-23] MEDS ORDERED: Ondansetron ODT 4 MG TAB.RAPDIS SL PRN (20:33)
[2017-06-23] MEDS ORDERED: Naloxone 0.4 MG/ML INJ IVP PRN (20:33)
[2017-06-23] MEDS ORDERED: Acetaminophen 325 MG TABLET PO PRN (20:33)
[2017-06-23] MEDS ORDERED: Nitroglycerin 0.4 MG TAB.SUBL SL PRN (20:36)
--- NOTE | 2017-06-23 20:53 | Internal Med History&Physical ---
<Saba Sepulveda M - Last Filed: 06/23/17 20:48> Date of Encounter: 06/23/17 Time of Encounter: 20:48 Assessment and Plan (1) Chest pain Current visit: Yes Status: Acute Patient reports jaw pain and left arm pain and tingling yesterday with brief episode of chest pain today. He reports history of CAD with stent placement, and also reports going into v-tach during previous stress testing. EKG with NSR and no ischemic changes. initial troponin 0.00. Echo from a few days ago showed LVEF of 55-60% and normal LV and RV function. continuous manager monitoring serial troponins Cardiology consulted due to reported history of v-tach during stress testing. Qualifiers: Chest pain type: precordial pain Qualified Code(s): R07.2 - Precordial pain (2) Bipolar 1 disorder Current visit: Yes Status: Chronic Continue home doses of lithium, venlafaxine, sinemet, benztropine. (3) CAD (coronary artery disease) Current visit: Yes Status: Chronic Patient reports history of CAD with stent placement. EKG without any ischemic changes today. Continue home dose of aspirin and statin. Qualifiers: Coronary Disease-Associated Artery/Lesion type: [place] artery [place] vs. transplanted heart: [place] heart Associated angina: angina presence unspecified Qualified Code(s): I25.10 - Atherosclerotic heart disease of [place] coronary artery without angina pectoris (4) Hypertension Current visit: Yes Status: Chronic Controlled since arrival. Continue home dose of losartan. Qualifiers: Hypertension type: essential hypertension Qualified Code(s): I10 - Essential (primary) hypertension (5) Factitious disorder Current visit: Yes Status: Suspected Patient with multiple recent admissions for neurological complaints resulting in getting tPA, but MRIs revealed no evidence of CVA. 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 He also has bipolar disorder, depression and anxiety. Psych was consulted on previous admission. Patient follows with psychiatry as outpatient and should continue to do so. (6) DVT prophylaxis Current visit: Yes Status: Acute anti-embolic stockings. lovenox sQ daily Internal Medicine - H&P: HPI Chief complaint: chest pain Admitted From: Emergency Dept Plans for Post Hospital Care: Home History of present illness: Mr. Brown is a 52 year old male with hypertension, hyperlipidemia, coronary artery disease status post stent placement, TIA, CHF, history of PE, anxiety, bipolar, depression, and PTSD presented to the emergency department today with complaints of chest pain. Patient reports that yesterday he developed left jaw pain, which she describes as a constant aching. He also had some pain and tingling in his left arm on and off. Today he developed midsternal chest pain that is now resolved. He denies any shortness of breath, lightheadedness, headache, palpitations. He does describe some nausea yesterday and today, but no vomiting, abdominal pain, or diarrhea. Patient's had multiple recent admissions with neurological symptoms which are thought to be psychosomatic. Evaluation in the emergency department included EKG which showed sinus rhythm with no ST elevations or depressions. Chest x-ray showed no acute cardiopulmonary disease. Troponin was negative at 0.00. Patient had an echo a few days ago during his recent admission which showed LVEF of 55-60% and normal LV and RV function. On exam, patient alert and oriented, in no acute distress. Heart had regular rate and rhythm, lungs clear bilaterally to auscultation, no peripheral edema. Past Med Surg Social Fam HX - Past Medical History Medical history: CHF, coronary artery disease, CVA, hypertension, migraine, myocardial infarction, pulmonary embolus, seizures, TIA, other Psychiatric history: anxiety, bipolar, depression, PTSD - Past Surgical History Surgical History: cholecystectomy, hip replacement (Bilateral), orthopedic, other (Right meniscus, left ACL), other - Social History Smoking Status: Never smoker Smokeless Tobacco Status: No Alcohol use: occasionally Drug use: none - Family History Mother Adopted: Yes Father Adopted: Yes Living Status: Hx Family Cardiac Disorders: Yes Internal Medicine - H&P: Meds Benztropine Mesylate 2 mg PO BID 10/28/16 [History] Gabapentin [Neurontin] 900 mg PO TID 10/28/16 [History] [place] Carbonate 300 mg PO BID 10/28/16 [History] Losartan Potassium [Cozaar] 25 mg PO DAILY 10/28/16 [History] Venlafaxine HCl [Venlafaxine HCl ER] 225 mg PO HS 10/28/16 [History] Atorvastatin Calcium [Lipitor] 20 mg PO HS 05/09/17 [History] Oxybutynin [Ditropan] 10 mg PO TID 05/09/17 [History] Potassium Chloride [Klor-Con] 10 - 20 meq PO BID 05/09/17 [History] Aspirin Enteric Coated [Aspirin EC] 325 mg PO DAILY #30 tablet. 05/11/17 [Rx] Carbidopa/Levodopa 25/100 [Sinemet 25/100] 1 each PO TID 06/23/17 [History] HYDROcodone/Acet 5/325 mg [[place] 5-325 mg] 1 tab PO Q6H PRN 06/23/17 [History] LORazepam [Ativan] 2 mg PO ONCE PRN 06/23/17 [History] Nitroglycerin [Nitrostat] 0.4 mg SL Q5M PRN 06/23/17 [History] Ranitidine HCl [Zantac] 150 mg PO HS 06/23/17 [History] Testosterone Cypionate [Testone Cik] 150 mg IM TH 06/23/17 [History] Allergies cephalexin [From Keflex] Allergy (Severe, Verified 04/25/17 21:45) Anaphylaxis latex Allergy (Mild, Verified 05/26/17 02:13) Hives ceftriaxone [From Rocephin] Allergy (Verified 06/23/17 19:08) Anaphylaxis clams Allergy (Verified 05/26/17 02:13) Anaphylaxis tramadol Allergy (Verified 05/26/17 02:13) Seizure All Systems PM: A 10-system review of systems was performed and is negative for pertinent findings except as documented above in the HPI. - Constitutional Constitutional: no chills, no fever(s), no night sweats - EENT Eyes: no change in vision, no discharge, no pain, no photophobia Ears: no ear discharge, no ear pain, no tinnitus Nose, mouth and throat: no dysphagia, no nasal discharge, no neck pain, no sore throat Additional comments: jaw pain - Cardiovascular Cardiovascular ROS IM: chest pain, no diaphoresis, no dyspnea, no lightheadedness, no palpitations, no syncope - Respiratory Respiratory: no cough, no dyspnea, no wheezing, no excessive phlegm production - Gastrointestinal Gastrointestinal: nausea, no abdominal pain, no diarrhea, no hematemesis, no hematochezia, no melena, no vomiting - Musculoskeletal Musculoskeletal ROS IM: no numbness, no tingling - Integumentary Integumentary IM: no rash, no unusual bruising - Neurological Neurological ROS: no confusion, no convulsions, no focal weakness, no numbness, no tingling, no tremor(s) - Hematologic/Lymphatic Hematologic/Lymphatic: no easy bruising - Constitutional Vitals: Temp Pulse Resp BP Pulse Ox 98.2 F 97 16 138/82 100 06/23/17 15:44 06/23/17 18:34 06/23/17 20:13 06/23/17 20:13 06/23/17 18:34 General appearance: Present: A&O X 3, pleasant, no acute distress - Head Head exam: Present: atraumatic, normocephalic - Eye Eye exam: Present: PERRL, conjuntiva pink, sclera anicteric Pupils: Present: PERRL - Neck Neck exam general surgery: Present: supple, trachea midline. Absent: lymphadenopathy - Respiratory Respiratory exam: Present: CTAB. Absent: accessory muscle use, rales, rhonchi, wheezes - Cardiovascular Cardiovascular exam: Present: RRR, +S1, +S2. Absent: diastolic murmur, gallop, rubs, systolic murmur - GI/Abdominal GI/Abdominal exam: Present: normal bowel sounds, soft, no peritoneal signs. Absent: distended, tenderness - Extremities Exam Extremities exam: Present: warm, radial pulses palpable and symmetrical. Absent : calf tenderness, cyanotic, pedal edema - Neurological Exam Neurological exam: Present: CN II-XII intact, oriented X3, no focal deficits. Absent: facial droop, speech deficit - Skin Skin exam: Present: dry, intact Internal Med - H&P Results - Labs CBC & Chem 7: 06/23/17 16:41 06/23/17 16:41 Labs: All Lab Results (24 Hours) 06/23/17 06/23/17 06/23/17 Range/Units 16:41 16:41 16:41 WBC 5.5 (4.3-11.1) K/mcL RBC 4.34 (4.19-5.50) M/mcL Hgb 13.3 (12.9-16.9) g/dL Hct 40.1 (37.5-50.1) % MCV 92.4 (83.0-100.0) fL MCH 30.6 (28.0-33.3) pg MCHC 33.2 (31.6-35.5) g/dL RDW 14.1 (11.5-14.5) % Plt Count 191 (140-400) K/mcL MPV 9.2 L (9.4-12.4) fL Immature Gran % 0.2 (0-4) % Seg Neutrophils % 70.7 % Lymphocytes % 20.1 % Monocytes % 6.3 % Eosinophils % 2.2 % Basophils % 0.5 % Neutrophils # 3.9 (1.6-8.9) K/mcL Lymphocytes # 1.1 (0.6-4.6) K/mcL Monocytes # 0.4 (0.0-1.3) K/mcL Eosinophils # 0.1 (0.0-0.6) K/mcL Basophils # 0.0 (0.0-0.2) K/mcL Sodium 137 (136-145) mEq/L Potassium 3.8 (3.5-4.5) mEq/L Chloride 107 (98-109) mEq/L Carbon Dioxide 25 (19-29) mEq/L BUN 6 L (8-26) mg/dL Creatinine 0.86 (0.72-1.25) mg/dL Est GFR ( Amer) > 60 (> 60) Est GFR (Non-Af Amer) > 60 (> 60) BUN/Creatinine Ratio 7 (6-26) Glucose 97 (70-99) mg/dL Calculated Osmolality 282 (280-300) Calcium 9.2 (8.6-10.8) mg/dL Troponin I 0.00 (0-0.03) ng/mL - Diagnostic Studies Chest x-ray Additional comments: Chest X-Ray 06/23/17 16:10 IMPRESSION: No acute cardiopulmonary disease. D/ / Carlos Enrique Cleveland MD / Carlos Enrique Cleveland MD Interpreting Provider: Carlos Enrique Cleveland MD <Layo Hoffmann - Last Filed: 06/24/17 04:20> Date of Encounter: 06/24/17 Internal Medicine - H&P: HPI History of present illness: Mr. Brown is a 52 year old male All Systems PM: A 10-system review of systems was performed and is negative for pertinent findings except as documented above in the HPI. - Constitutional Vitals: Temp Pulse Resp BP Pulse Ox 97.7 F 77 16 129/69 98 06/24/17 03:16 06/24/17 03:16 06/24/17 03:16 06/24/17 03:16 06/24/17 03:16 Internal Med - H&P Results - Labs CBC & Chem 7: 06/23/17 16:41 06/23/17 16:41 Labs: Cardiac Enzymes 06/23/17 Range/Units 22:16 Troponin I 0.00 (0-0.03) ng/mL - Attending Attestation I saw and examined pt. I have discussed with GLASS BEVELLER regarding diagnostic and management plan. I agree with the documentation. Pt has Hx of CAD with coronary angioplasty. Present to ER with chest pain. Need to r/o ACS. Will continue cardio monitoring, track 3 sets of troponin. Pt is pain free now. Not place pt on stress test because he said he has SVT and VT on previous stress test. Will consult cardiology for further management. Cardio was called by ER.
[2017-06-23] MEDS: Famotidine 20 MG TABLET PO SCH (23:10)
[2017-06-23] MEDS: Carbidopa/Levodopa 25/100 TABLET PO SCH (23:11)
[2017-06-23] MEDS: Gabapentin 300 MG CAPSULE PO SCH (23:11)
[2017-06-23] MEDS: Venlafaxine XR (24 HR) 75 MG CAP.ER.24H PO SCH (23:11)
[2017-06-23] MEDS: Lithium Carbonate 300 MG CAPSULE PO SCH (23:11)
[2017-06-24] MEDS: *HR* Enoxaparin 40 MG/0.4 ML SYRINGE SQ SCH (06:22)
[2017-06-24] MEDS: Gabapentin 300 MG CAPSULE PO SCH ×3 (07:32→20:58)
[2017-06-24] MEDS: Carbidopa/Levodopa 25/100 TABLET PO SCH ×3 (07:32→20:59)
[2017-06-24] MEDS: Aspirin Enteric Coated 325 MG Tablet PO SCH (07:33)
[2017-06-24] MEDS: Lithium Carbonate 300 MG CAPSULE PO SCH ×2 (07:33→20:59)
[2017-06-24] MEDS: *HR* HYDROcodone/Acet 5/325 mg TABLET PO PRN ×2 (07:33→14:43)
[2017-06-24 08:03] LABS: Basophils # 0.1 K/mcL (0.0-0.2); Basophils % 0.7 %; Eosinophils # 0.4 K/mcL (0.0-0.6); Eosinophils % 5.1 %; Hematocrit 41.5 % (37.5-50.1); Hemoglobin 14.1 g/dL (12.9-16.9); Immature Granulocytes % 0.4 % (0-4); Lymphocytes # 1.9 K/mcL (0.6-4.6); Lymphocytes % 25.2 %; Mean Corpuscular Hemoglobin 31.3 pg (28.0-33.3); Mean Platelet Volume 9.7 fL (9.4-12.4); Monocytes # 0.6 K/mcL (0.0-1.3); Monocytes % 8.2 %; Neutrophils # 4.5 K/mcL (1.6-8.9); Platelet Count 169 K/mcL (140-400); Red Blood Count 4.51 M/mcL (4.19-5.50); Red Cell Distribution Width 14.3 % (11.5-14.5); Segmented Neutrophils % 60.4 %
[2017-06-24 08:17] LABS: BUN/Creatinine Ratio 8 (6-26); Blood Urea Nitrogen 7 mg/dL (8-26); Calcium 9.6 mg/dL (8.6-10.8); Carbon Dioxide 18 mEq/L (19-29); Chloride 108 mEq/L (98-109); Chol/HDL Ratio 2.7 (0-4.9); Cholesterol 103 mg/dL (< 200); Glucose 62 mg/dL (70-99); HDL Cholesterol 38 mg/dL (40-59); LDL Cholesterol,Calculated 52 mg/dL (0-99); Osmolality,Calculated 278 (280-300); Sodium 136 mEq/L (136-145); Triglycerides 64 mg/dL (< 150); eGFR For African Americans > 60 (> 60); eGFR For Non-African Americans > 60 (> 60)
--- NOTE | 2017-06-24 12:13 | Cardiology Consult Note ---
<Jagdish Quintero R - Last Filed: 06/24/17 12:10> Date of Encounter: 06/24/17 Time of Encounter: 12:10 Assessment and Plan (1) Chest pain Current Visit: Yes Status: Acute Presented with left jaw/arm pain, then developed chest pain. Chest pain subsided , but jaw and arm pain have been constant, mildly improved with morphine, not associated with exertion. Troponin negative x 3, no EKG changes. Echo 06/16/17 EF preserved, normal wall motion. Stress test 03/2015 negative for ischemia or infarct. LHC 06/2014 minimal CAD 20% mid LAD. Per pt, hx of PTCA in 2005. Since pt has had no recent ischemic evaluation, recommend exercise nuclear stress test to further evaluate. If negative for ischemia, will sign off from cardiac standpoint. Qualifiers: Chest pain type: unspecified Qualified Code(s): R07.9 - Chest pain, unspecified (2) CAD (coronary artery disease) Current Visit: Yes Status: Chronic As above, hx of PTCA in 2005. Continue ASA, Statin. Add low dose BB. Qualifiers: Coronary Disease-Associated Artery/Lesion type: [place] artery [place] vs. transplanted heart: [place] heart Associated angina: angina presence unspecified Qualified Code(s): I25.10 - Atherosclerotic heart disease of [place] coronary artery without angina pectoris Discussion w patient/family: The assessment and plan as outlined above was discussed with the patient and/or family members who expressed understanding and agreement. All questions were answered. Thank you for involving us in the care of your patient. Please call with any questions. I will discuss all the above with Dr. Ospina and make changes as necessary. History of Present Illness Consult date: 06/24/17 Requesting physician: Layo Hoffmann Consult reason: chest pain Chief complaint: chest pain History of present illness: Mr. Brown is a 52 year old male hypertension, hyperlipidemia, CAD with hx PTCA in 2005 per pt, TIA, CHF, history of PE, anxiety, bipolar, depression, and PTSD presented to the ED yesterday with complaints of chest pain. Patient reports that Friday evening he developed left jaw pain, which he describes as a constant aching. He also had some pain and tingling in his left arm. Yesterday , developed midsternal chest pain that is now resolved, but the arm and jaw pain remains constant, mildly improved with IV morphine, not worsened with exertion. He denies any shortness of breath, lightheadedness, headache, palpitations. He does describe some nausea yesterday, but no vomiting. Patient has had multiple recent admissions with neurological symptoms which are thought to be psychosomatic. Troponins negative, EKG without acute changes. Cardiology consulted for further recommendations. Recent CV testing: Echo 06/16/17 LVEF of 55-60% and normal LV and RV function. Stress test 03/2015 perfusion imaging negative for ischemia or infarct. LHC 06/2014 minimal CAD--20% mid LAD. Past Med Surg Social Fam HX - Past Medical History Medical history: CHF, coronary artery disease, CVA, hypertension, migraine, myocardial infarction, pulmonary embolus, seizures, TIA, other Psychiatric history: anxiety, bipolar, depression, PTSD - Past Surgical History Surgical History: angioplasty/stent, cholecystectomy, hip replacement (Bilateral ), orthopedic, other (Right meniscus, left ACL), other - Social History Smoking Status: Never smoker Smokeless Tobacco Status: No Alcohol use: occasionally Drug use: none - Family History Mother Adopted: Yes Father Adopted: Yes Living Status: Hx Family Cardiac Disorders: Yes Medications and Allergies Benztropine Mesylate 2 mg PO BID 10/28/16 [History] Gabapentin [Neurontin] 900 mg PO TID 10/28/16 [History] [place] Carbonate 300 mg PO BID 10/28/16 [History] Losartan Potassium [Cozaar] 25 mg PO DAILY 10/28/16 [History] Venlafaxine HCl [Venlafaxine HCl ER] 225 mg PO HS 10/28/16 [History] Atorvastatin Calcium [Lipitor] 20 mg PO HS 05/09/17 [History] Oxybutynin [Ditropan] 10 mg PO TID 05/09/17 [History] Potassium Chloride [Klor-Con] 10 - 20 meq PO BID 05/09/17 [History] Aspirin Enteric Coated [Aspirin EC] 325 mg PO DAILY #30 tablet. 05/11/17 [Rx] Carbidopa/Levodopa 25/100 [Sinemet 25/100] 1 each PO TID 06/23/17 [History] HYDROcodone/Acet 5/325 mg [[place] 5-325 mg] 1 tab PO Q6H PRN 06/23/17 [History] LORazepam [Ativan] 2 mg PO ONCE PRN 06/23/17 [History] Nitroglycerin [Nitrostat] 0.4 mg SL Q5M PRN 06/23/17 [History] Ranitidine HCl [Zantac] 150 mg PO HS 06/23/17 [History] Testosterone Cypionate [Testone Cik] 150 mg IM TH 06/23/17 [History] Allergies cephalexin [From Keflex] Allergy (Severe, Verified 04/25/17 21:45) Anaphylaxis latex Allergy (Mild, Verified 05/26/17 02:13) Hives ceftriaxone [From Rocephin] Allergy (Verified 06/23/17 19:08) Anaphylaxis clams Allergy (Verified 05/26/17 02:13) Anaphylaxis tramadol Allergy (Verified 05/26/17 02:13) Seizure All Systems Review: A 10-system review of systems was performed and is negative for pertinent findings except as documented above in the HPI. - Cardiovascular Cardiovascular: as per HPI, chest pain at rest, chest pain with exertion, radiating jaw, neck or arm pain - Gastrointestinal Gastrointestinal: nausea Physical Examination Vital Signs, Last 4 Hours Temp Pulse Resp BP Pulse Ox 06/24/17 10:47 98.3 F 95 16 120/75 98 Vital Signs Temp Pulse Resp BP Pulse Ox 06/24/17 10:47 98.3 F 95 16 120/75 98 06/24/17 07:07 98.1 F 68 17 110/72 90 06/24/17 03:16 97.7 F 77 16 129/69 98 06/23/17 20:42 98.6 F 89 16 128/80 97 06/23/17 20:13 16 138/82 06/23/17 18:34 97 18 121/89 100 06/23/17 17:48 93 18 148/97 98 06/23/17 17:04 93 18 138/92 99 06/23/17 15:44 98.2 F 98 15 136/90 98 Intake and Output 06/23/17 06/24/17 06/24/17 23:59 07:59 15:59 Output Total 500 / 500 Balance -500 / -500 Output: Urine 500 / 500 Other: # Voids 1 1 # Bowel Movements 1 Weight 78.018 kg 77.8 kg Patient Weight 06/24/17 23:59 Weight 77.8 kg General: Conversant, No Apparent Distress HEENT: Atraumatic, Normocephaly, Mucus Membranes Moist Neck: No JVD, Normal carotid pulses Cardiac: Reg Rate and Rhythm, Normal S1 and S2, No Murmur Lungs: Normal Breath Sounds, No Wheeze, Rales, Rhonchi Neuro: Alert and responsive, No focal deficits noted Abdomen: Soft, Non-Tender Skin: No rashes noted on visualized skin Musculoskeletal: No Chest Wall Tenderness Extremities: No Clubbing, No Cyanosis, No Edema, Normal Pulses Results 06/24/17 07:02 06/24/17 07:02 Lab Results 06/23/17 06/24/17 06/24/17 22:16 07:02 07:02 WBC 7.4 Hgb 14.1 Hct 41.5 Plt Count 169 Sodium 136 Potassium 5.0 H D Chloride 108 Carbon Dioxide 18 L BUN 7 L Creatinine 0.88 Glucose 62 L Calcium 9.6 Troponin I 0.00 06/24/17 07:02 WBC Hgb Hct Plt Count Sodium Potassium Chloride Carbon Dioxide BUN Creatinine Glucose Calcium Troponin I 0.00 Short CBC 06/24/17 06/23/17 Range/Units 07:02 16:41 WBC 7.4 5.5 (4.3-11.1) K/mcL Hgb 14.1 13.3 (12.9-16.9) g/dL Hct 41.5 40.1 (37.5-50.1) % Plt Count 169 191 (140-400) K/mcL Neutrophils # 4.5 3.9 (1.6-8.9) K/mcL BMP 06/24/17 06/23/17 Range/Units 07:02 16:41 Sodium 136 137 (136-145) mEq/L Potassium 5.0 H D 3.8 (3.5-4.5) mEq/L Chloride 108 107 (98-109) mEq/L Carbon Dioxide 18 L 25 (19-29) mEq/L BUN 7 L 6 L (8-26) mg/dL Creatinine 0.88 0.86 (0.72-1.25) mg/dL Glucose 62 L 97 (70-99) mg/dL Calcium 9.6 9.2 (8.6-10.8) mg/dL Cardiac Enzymes 08/15/17 08/14/17 08/14/17 Range/Units 07:02 22:16 16:41 Troponin I 0.00 0.00 0.00 (0-0.03) ng/mL Impressions Chest X-Ray 06/23/17 16:10 IMPRESSION: No acute cardiopulmonary disease. D/ / Carlos Enrique Cleveland MD / Carlos Enrique Cleveland MD Interpreting Provider: Carlos Enrique Cleveland MD Active Medications Acetaminophen (Tylenol) 650 mg PO Q6HR PRN PRN Reason: Mild Pain (1-3) Stop: 12/23/17 20:34 Hydrocodone Bitart/Acetaminophen ([place] 5-325 Mg) 1 tab PO Q6H PRN PRN Reason: Moderate Pain Stop: 12/23/17 20:37 Last Admin: 06/24/17 07:33 Dose: 1 tab Aspirin (Aspirin Ec) 325 mg PO DAILY [facility] Stop: 12/24/17 09:01 Last Admin: 06/24/17 07:33 Dose: 325 mg Atorvastatin Calcium (Lipitor) 20 mg PO HS [facility] Stop: 12/23/17 21:01 Last Admin: 06/23/17 23:11 Dose: 20 mg Benztropine Mesylate (Cogentin) 2 mg PO BID [facility] Stop: 12/23/17 21:01 Last Admin: 06/24/17 07:33 Dose: 2 mg Carbidopa/Levodopa (Sinemet) 1 each PO TID [facility] Stop: 12/23/17 21:01 Last Admin: 06/24/17 07:32 Dose: 1 each Docusate Sodium (Colace) 100 mg PO BID PRN PRN Reason: Constipation Stop: 12/23/17 20:34 Enoxaparin Sodium (Lovenox) 40 mg SQ 0700 K[facility]ERON PRN Reason: Protocol Stop: 12/24/17 07:01 Last Admin: 06/24/17 06:22 Dose: 40 mg Famotidine (Pepcid) 20 mg PO HS [facility] Stop: 12/23/17 21:01 Last Admin: 06/23/17 23:10 Dose: 20 mg Gabapentin (Neurontin) 900 mg PO TID [facility] Stop: 12/23/17 21:01 Last Admin: 06/24/17 07:32 Dose: 900 mg [place] Carbonate ([place] Carbonate) 300 mg PO BID [facility] PRN Reason: Protocol Stop: 12/23/17 21:01 Last Admin: 06/24/17 07:33 Dose: 300 mg Naloxone HCl (Narcan) 0.4 mg IVP Q2MIN PRN PRN Reason: Opioid Reversal Stop: 12/23/17 20:34 Nitroglycerin (Nitroglycerin) 0.4 mg SL Q5M PRN PRN Reason: Chest Pain Stop: 12/23/17 20:37 Ondansetron HCl (Zofran Odt) 4 mg SL Q8HR PRN PRN Reason: Nausea And Vomiting Stop: 12/23/17 20:34 Oxybutynin Chloride (Ditropan) 10 mg PO TID K[facility]ERON PRN Reason: Protocol Stop: 12/23/17 21:01 Last Admin: 06/24/17 07:32 Dose: 10 mg Potassium Chloride (Potassium Chloride) 10 meq PO BID K[facility]ON Stop: 12/23/17 21:01 Last Admin: 06/24/17 07:33 Dose: 10 meq Venlafaxine HCl (Effexor Xr) 225 mg PO HS [facility] Stop: 12/23/17 21:01 Last Admin: 06/23/17 23:11 Dose: 225 mg - Imaging and Cardiology Stress Test: report reviewed Echo: report reviewed Cardiac cath: report reviewed - EKG Interpretation EKG results cardiology: personally reviewed, other (12 hr tele AVG HR 86, SR, no significant pauses or arrhythmias) Consult Discharge Plan - Plan Referrals: Rickie Chavira MD [Primary Care Provider] - 07/08/17 3:30 pm <Derick Ospina - Last Filed: 06/24/17 18:14> Date of Encounter: 06/24/17 Assessment and Plan Discussion w patient/family: The assessment and plan as outlined above was discussed with the patient and/or family members who expressed understanding and agreement. All questions were answered. Thank you for involving us in the care of your patient. Please call with any questions. History of Present Illness History of present illness: Mr. Brown is a 52 year old male All Systems Review: A 10-system review of systems was performed and is negative for pertinent findings except as documented above in the HPI. Physical Examination Vital Signs, Last 4 Hours Temp Pulse Resp BP Pulse Ox 06/24/17 15:56 98.3 F 106 16 127/53 97 06/24/17 14:26 98 Results 06/24/17 07:02 06/24/17 07:02 Lab Results 06/23/17 06/24/17 06/24/17 22:16 07:02 07:02 WBC 7.4 Hgb 14.1 Hct 41.5 Plt Count 169 Sodium 136 Potassium 5.0 H D Chloride 108 Carbon Dioxide 18 L BUN 7 L Creatinine 0.88 Glucose 62 L Calcium 9.6 Troponin I 0.00 06/24/17 07:02 WBC Hgb Hct Plt Count Sodium Potassium Chloride Carbon Dioxide BUN Creatinine Glucose Calcium Troponin I 0.00 - Attending Attestation Pt seen and examined independently, chart reviewed, old records reviewed. Pt complains of chest pain, mid epigastric, mid sternal, radiating into left jaw , 8/10 at most severe, worse with activity, on and off for last several weeks. Pain was most severe last pm, associated with nausea and diaphoresis, described as 11/10, when he went to the firehouse for evaluation. Pt reports pain had improved spontaneously, but has reoccurred on and off over last twelve hours. Pt reports able to sleep with 7/10 left jaw pain. He is unable to recall if his previous anginal symptoms, before he underwent PCI with PILI in unknown vessel in 2005. His description of his chest and jaw discomfort varies with repeated questioning. IMP/Plan 1. Chest pain, atypical, unlikely cardiac, however hx CAD with previous stent, will order treadmill cardiolyte stress imaging. Pt is concerned he had SVT with heartrates in 120s, on previous treadmill, discussed options, agrees to proceed with treadmill/cardiolyte stress imaging. 2. CAD - reportedly post PCI with PILI unknown vessel in 2005, 3, Confabulation: difficult to obtain an accurate history, pt changes symptoms with repeated questioning.
[2017-06-24] MEDS ORDERED: Regadenoson 0.4 MG/5 ML SYRINGE IVP ONE (13:17)
--- NOTE | 2017-06-24 13:34 | Internal Med Progress Note ---
Date of Encounter: 06/24/17 Time of Encounter: 12:30 - Assessment and plan (1) Chest pain Current Visit: Yes Status: Acute Assessment and plan: Pt currently denies chest pain, reports continued left jaw pain. Pt has been seen by cardiology and will have stress test to evaluate for ischemia. He reports prior history of CAD and stent placement and states that he went into SVT and Vtach during prior stress test. Troponins negative x 3. Lipid panel WNL. Chest xray negative for acute cardiopulmonary process. Continue telemetry Stress test pending MOnitor labs and vital signs Qualifiers: Chest pain type: unspecified Qualified Code(s): R07.9 - Chest pain, unspecified (2) Bipolar 1 disorder Current Visit: Yes Status: Chronic Assessment and plan: Chronic. Continue home medications. (3) HLD (hyperlipidemia) Current Visit: No Status: Chronic Assessment and plan: Continue home medications. Qualifiers: Hyperlipidemia type: pure hypercholesterolemia Qualified Code(s): E78.00 - Pure hypercholesterolemia, unspecified; E78.0 - Pure hypercholesterolemia (4) DVT (deep venous thrombosis) Current Visit: No Status: Inactive Assessment and plan: SQ Lovenox daily Qualifiers: DVT location: lower extremity Affected thrombotic vein of extremity: unspecified vein of extremity Chronicity: unspecified Laterality: unspecified laterality Qualified Code(s): I82.409 - Acute embolism and thrombosis of unspecified deep veins of unspecified lower extremity (5) Factitious disorder Current Visit: Yes Status: Suspected Assessment and plan: Per history. (6) Hypertension Current Visit: Yes Status: Chronic Assessment and plan: Chronic. Continue home medications. Continue to monitor vital signs. Qualifiers: Hypertension type: essential hypertension Qualified Code(s): I10 - Essential (primary) hypertension - Time Spent With Patient less than 15 minutes - Subjective Interval history: Pt was seen and assessed at 1230. Pt was sitting up in bed, alert, awake, reports that friday at 1999 he began having left jaw pain, nausea and was clammy. He states that last night he had chest pain that he describes as heaviness with radiation to his left jaw, neck ,and arm. He denies chest pain at this time, but jaw pain remains. He has been seen by cardiology and will have a stress test. - Constitutional Vitals: Temp Pulse Resp BP Pulse Ox 98.3 F 95 16 120/75 98 06/24/17 10:47 06/24/17 10:47 06/24/17 10:47 06/24/17 10:47 06/24/17 10:47 General appearance: Present: cooperative, A&O X 3, pleasant, no acute distress, answers questions appropriately - Head Head exam: Present: normal inspection - Eye Eye exam: Present: normal appearance, conjuntiva pink - ENT ENT exam: Present: mucous membranes moist, normal exam, normal external ear exam - Neck Neck exam general surgery: Present: normal inspection. Absent: lymphadenopathy , tenderness - Respiratory Respiratory exam: Present: CTAB. Absent: chest wall tenderness, decreased breath sounds, rales, respiratory distress, rhonchi, stridor, wheezes, tachypnea - Cardiovascular Cardiovascular exam: Present: RRR, +S1, +S2. Absent: clicks, diastolic murmur, gallop, systolic murmur - GI/Abdominal GI/Abdominal exam: Present: soft. Absent: diminished bowel sounds, distended, hepatomegaly, mass, tenderness - Extremities Exam Extremities exam: Present: full ROM, normal inspection, warm, radial pulses palpable and symmetrical. Absent: pedal edema, tenderness - Neurological Exam Neurological exam: Present: alert, oriented X3, no focal deficits. Absent: facial droop, speech deficit - Psychiatric Psychiatric exam: Present: flat affect. Absent: agitated - Skin Skin exam: Present: dry, intact, normal color. Absent: rash, warm Internal Medicine: Result - Labs CBC & Chem 7: 06/24/17 07:02 06/24/17 07:02 Labs: Short CBC 06/24/17 Range/Units 07:02 WBC 7.4 (4.3-11.1) K/mcL Hgb 14.1 (12.9-16.9) g/dL Hct 41.5 (37.5-50.1) % Plt Count 169 (140-400) K/mcL Neutrophils # 4.5 (1.6-8.9) K/mcL BMP 06/24/17 07:02 Sodium 136 Potassium 5.0 H D Chloride 108 Carbon Dioxide 18 L BUN 7 L Creatinine 0.88 Glucose 62 L Calcium 9.6 Cardiac Enzymes 06/23/17 06/24/17 Range/Units 22:16 07:02 Troponin I 0.00 0.00 (0-0.03) ng/mL Consult Discharge Plan - Plan Referrals: Rickie Chavira MD [Primary Care Provider] -
--- NOTE | 2017-06-24 14:27 | Nuclear Medicine Stress Report ---
Exercise Nuclear Stress Name: Tam Brown Date of Study: 06/24/2017 Date: 1965 Ht: 66.0 in Medical Record#: [id number] Age: 52 Wt: 171.0 lb Gender: Male Order #: [id number] Location: [facility] IP Room: [facility] Supervising Provider: Jagdish Quintero CNP Reading Physician: Verónica Forrester DO Ordering Physician: Jagdish Quintero CNP Primary Care Physician: Rickie Chavira MD Stress Technologist: Dl Almeida, [place], [facility] Marketing Instructor: Fady Payton Indications: Chest Pain, jaw pain Impression: Perfusion imaging was negative for ischemia or infarct. Exercise ECG was non-diagnostic for ischemia secondary to artifact present during stress and into recovery, limiting interpretation. Exercise capacity was poor. Blunted blood pressure response. Patient described 4/10 jaw pain prior to the start of the study. This increased to 7/10 during exercise then returned to 4/10 at and exercise. Gated EF = 64%. Recommend clinical correlation. History: Hypertension Hypercholesteremia Prior PCI Stress Test Summary: Stress Test Type: Treadmill Protocol: Andrew Baseline Information: Initial Heart Rate: 96 Blood Pressure: 114/62 Stress Information: Stress Time: 3 min 00 sec Test Terminated Due to (primary): Dyspnea Maximum Blood Pressure: 138/60 Maximum Heart Rate: 150 Percent Maximum Heart Rate Achieved: 90 Double Product: [id number] METS Reached: 4.6 Symptoms: jaw pain Nuclear Summary: SPECT myocardial perfusion imaging using Tc99m Sestamibi given intravenously was performed at rest and following cardiac stress testing. The resting images were obtained following initial dose of 11.5 mCi. Following stress an additional dose of 30.5 mCi was given at peak exercise or 30 seconds post regadenoson infusion. Medication Given: Time Medication Dose Units Route Findings: Stress Note * Baseline ECG demonstrates sinus tachycardia, heart rate 103 bpm with possible RV conduction delay. * Exercise ECG is non-diagnostic for ischemia. Artifact is present throughout the exercise period and into recovery. * Unable to evaluate ECG for arrhythmia due to artifact. * Patient described 4/10 jaw pain prior to exercise, increasing to 7/10 with exericse then returning back to 4/10 at end exercise. * The exercise capacity was poor. Hemodynamic responses * The patient demonstrated a blunted response blood pressure response. Study Quality * Technically challenging. Patient motion noted on rotating images. Gated EF % * Gated EF = 64%. Left Ventricle * The left ventricle is not dilated. TID * No evidence of transient ischemic dilatation. Lung Uptake * There is no evidence of increase lung uptake. NORMALS * Normal wall motion. PERFUSION * Homogeneous rest and stress radiotracer uptake without perfusion evidence for ischemia or infarct. Updated by Verónica Forrester on 06/24/2017 2:21:23 PM electronically signed on 06/24/2017 2:23:21 PM with status of Final
--- NOTE | 2017-06-24 15:14 | Event Note ---
Date of Encounter: 06/24/17 Time of Encounter: 15:12 - Cardiology Event Note Stress test resulted. Perfusion imaging was negative for ischemia or infarct. No further cardiac testing warranted during inpt stay. Cardiology signing off. Reconsult PRN.
[2017-06-24] MEDS: Venlafaxine XR (24 HR) 75 MG CAP.ER.24H PO SCH (20:58)
[2017-06-24] MEDS: Famotidine 20 MG TABLET PO SCH (20:59)
[2017-06-25 04:43] LABS: Basophils # 0.1 K/mcL (0.0-0.2); Basophils % 0.7 %; Eosinophils # 0.5 K/mcL (0.0-0.6); Eosinophils % 6.5 %; Hematocrit 39.2 % (37.5-50.1); Immature Granulocytes % 0.4 % (0-4); Lymphocytes # 1.9 K/mcL (0.6-4.6); Mean Corpuscular HGB Conc 33.2 g/dL (31.6-35.5); Mean Corpuscular Hemoglobin 31.2 pg (28.0-33.3); Monocytes # 0.7 K/mcL (0.0-1.3); Monocytes % 8.9 %; Neutrophils # 4.3 K/mcL (1.6-8.9); Platelet Count 160 K/mcL (140-400); Red Blood Count 4.17 M/mcL (4.19-5.50); Red Cell Distribution Width 13.8 % (11.5-14.5); Segmented Neutrophils % 57.5 %
[2017-06-25 04:56] LABS: BUN/Creatinine Ratio 13 (6-26); Blood Urea Nitrogen 10 mg/dL (8-26); Calcium 9.1 mg/dL (8.6-10.8); Carbon Dioxide 25 mEq/L (19-29); Chloride 108 mEq/L (98-109); Glucose 87 mg/dL (70-99); Osmolality,Calculated 286 (280-300); Sodium 139 mEq/L (136-145); eGFR For African Americans > 60 (> 60); eGFR For Non-African Americans > 60 (> 60)
[2017-06-25] MEDS: *HR* Enoxaparin 40 MG/0.4 ML SYRINGE SQ SCH (06:01)
[2017-06-25] MEDS: *HR* HYDROcodone/Acet 5/325 mg TABLET PO PRN (06:04)
[2017-06-25 07:21] VITALS: BP 129/86
[2017-06-25] MEDS ORDERED: Metoprolol XL (24 HR) Succ 25 MG TAB.ER.24H PO SCH (09:00)
[2017-06-25] MEDS: Gabapentin 300 MG CAPSULE PO SCH (09:15)
[2017-06-25] MEDS: Carbidopa/Levodopa 25/100 TABLET PO SCH (09:15)
[2017-06-25] MEDS: Lithium Carbonate 300 MG CAPSULE PO SCH (09:15)
[2017-06-25] MEDS: Aspirin Enteric Coated 325 MG Tablet PO SCH (09:15)
--- NOTE | 2017-06-25 12:57 | Electrocardiograph Report ---
[place] [id number] Test Date: 2017-06-23 Pat Name: Tam Brown Department: 105 Room: 3B Gender: M Proof Reader: : 1965 Requested By: Jyoti Stanton Order Number: [id number] Reading MD: Andrew Bee MD Measurements Intervals [place] Rate: 95 P: 6 TX: 167 QRS: 33 QRSD: 106 T: 44 QT: 354 QTc: 407 Interpretive Statements SINUS RHYTHM Electronically Signed On 06-25-2017 12:55:17 EDT by Andrew Bee MD
--- NOTE | 2017-06-25 13:25 | Discharge Summary ---
Date of Encounter: 06/25/17 Time of Encounter: 10:00 - Discharge Diagnosis (1) Chest pain Priority: Primary Status: Acute Comments: Pt denies chest or jaw pain today. STress test negative. Cardiology has signed off. Qualifiers: Chest pain type: unspecified Qualified Code(s): R07.9 - Chest pain, unspecified (2) Bipolar 1 disorder Priority: Secondary Status: Chronic Comments: Chronic. Continue home medications. (3) HLD (hyperlipidemia) Priority: Secondary Status: Chronic Comments: Chronic. Continue Lipitor. Qualifiers: Hyperlipidemia type: pure hypercholesterolemia Qualified Code(s): E78.00 - Pure hypercholesterolemia, unspecified; E78.0 - Pure hypercholesterolemia (4) Factitious disorder Priority: Secondary Status: Suspected Comments: Per history. (5) Hypertension Priority: Secondary Status: Chronic Comments: Chronic. Well controlled in hospital setting. Continue home medications. Qualifiers: Hypertension type: essential hypertension Qualified Code(s): I10 - Essential (primary) hypertension - Discharge Medications Home Medications: Benztropine Mesylate 2 mg PO BID 10/28/16 [History] Gabapentin [Neurontin] 900 mg PO TID 10/28/16 [History] [place] Carbonate 300 mg PO BID 10/28/16 [History] Losartan Potassium [Cozaar] 25 mg PO DAILY 10/28/16 [History] Venlafaxine HCl [Venlafaxine HCl ER] 225 mg PO HS 10/28/16 [History] Atorvastatin Calcium [Lipitor] 20 mg PO HS 05/09/17 [History] Oxybutynin [Ditropan] 10 mg PO TID 05/09/17 [History] Potassium Chloride [Klor-Con] 10 - 20 meq PO BID 05/09/17 [History] Aspirin Enteric Coated [Aspirin EC] 325 mg PO DAILY #30 tablet. 05/11/17 [Rx] Carbidopa/Levodopa 25/100 [Sinemet 25/100] 1 each PO TID 06/23/17 [History] HYDROcodone/Acet 5/325 mg [[place] 5-325 mg] 1 tab PO Q6H PRN 06/23/17 [History] LORazepam [Ativan] 2 mg PO ONCE PRN 06/23/17 [History] Nitroglycerin [Nitrostat] 0.4 mg SL Q5M PRN 06/23/17 [History] Ranitidine HCl [Zantac] 150 mg PO HS 06/23/17 [History] Testosterone Cypionate [Testone Cik] 150 mg IM TH 06/23/17 [History] Allergies/Adverse Reactions: Allergies cephalexin [From Keflex] Allergy (Severe, Verified 04/25/17 21:45) Anaphylaxis latex Allergy (Mild, Verified 05/26/17 02:13) Hives ceftriaxone [From Rocephin] Allergy (Verified 06/23/17 19:08) Anaphylaxis clams Allergy (Verified 05/26/17 02:13) Anaphylaxis tramadol Allergy (Verified 05/26/17 02:13) Seizure Procedures/tests Complete & Pending: Procedures Performed prior 72 hours Category Date Time Status NM oralia perf SPECT multi [NM] Routine Exams 06/24/17 11:43 Taken ECG 12 lead ECG [ECG] Routine Y 06/23/17 15:46 Completed SP exercise nuclear stress Routine Y 06/24/17 11:42 Completed Date of admission: 06/23/17 19:49 Primary care physician: Rickie Chavira MD Consults: 06/23/17 20:46 Consult to Cardiology [CONS] Routine Comment: Consulting Provider: Cardiology Tika Reason for Consult: 52M with CAD s/p stent, history of TIA, CHF, PE reported , presents with chest pain. Recent normal echo. initial trop negative, ekg normal. Call Completed: Yes 06/24/17 11:22 Consult to Fitness Director [CONS] Routine Reason for SW Consult: Re-admission Discharging clinician: Gricel Palafox Anticipated date of discharge: 06/25/17 - Patient Status Disposition: Home, Self-Care Functional capacity at discharge: independent ambulation Overall status at discharge: patient is back to baseline - Discharge Instructions Instructions: Chest Pain (DC), Heart Healthy Diet (DC) Follow Up With: Rickie Chavira MD [Primary Care Provider] - 07/08/17 3:30 pm Forms: ED Satisfaction Letter - Diet and Activity Activity: resume usual activities as tolerated Diet: diabetic diet Hospital course: Mr. Brown is a 52 year old male with past medical history of PE, DVT, CHF, hypertension, lung nodule, BPH, low T, TIA, bipolar, hypertension, CAD, HLD, factitious disorder. He presented to the emergency department on June 23 with complaint of chest pain that began one hour prior to arrival. He says that is substernal, aching, /10, it is not exertional. Patient also reports left jaw pain and left arm pain that started 1 day prior to the chest pain. He reports some nausea without vomiting, diaphoresis, exertional chest pain, or shortness of breath. Patient's chest x-ray was negative for cardiopulmonary disease. EKG on arrival sinus rhythm with rate of 95, [place] interval 167, QRS 106, QTC 407. Troponins were negative 3. Echocardiogram was done 06/16/2017, EF preserved, normal wall motion. STress test in 03/2015 negative for ischemia or infarct. [facility] 06/2014 minimal CAD 20% mid LAD, per pt, hx of ptCA in 2005. Pt had stress test yesterday that was negative for ischemia or infarct, Gated EF 64%. Pt will continue his low dose BB, ASA, and statin. CArdiology has seen pt and have signed off. Pt denies jaw pain or chest pain today. Neither area tender to palpation, chest pain not reproducible with palpation or deep inspiration. Pt's labs have been WNL and vitals have been WNL and stable. Pt denies pain or associated symptoms and is stable and ready for discharge. - Time Spent with Patient Total time spent providing and/or coordinating discharge services: Less than 30 minutes - Constitutional Vitals: Temp Pulse Resp BP Pulse Ox 98.1 F 90 16 129/86 95 06/25/17 07:18 06/25/17 07:18 06/25/17 07:18 06/25/17 07:18 06/25/17 07:18 General appearance: Present: cooperative, A&O X 3, pleasant, no acute distress, answers questions appropriately - Head Head exam: Present: normal inspection - Eye Eye exam: Present: normal appearance, conjuntiva pink - ENT ENT exam: Present: mucous membranes moist, normal exam, normal external ear exam - Neck Neck exam general surgery: Present: normal inspection. Absent: lymphadenopathy , tenderness - Respiratory Respiratory exam: Present: decreased breath sounds, CTAB. Absent: chest wall tenderness, rales, respiratory distress, rhonchi, stridor, wheezes - Cardiovascular Cardiovascular exam: Present: RRR, +S1, +S2. Absent: clicks, diastolic murmur, gallop, systolic murmur - GI/Abdominal GI/Abdominal exam: Present: normal bowel sounds, soft. Absent: hepatomegaly, tenderness - Extremities Exam Extremities exam: Present: normal capillary refill, warm, radial pulses palpable and symmetrical. Absent: pedal edema, tenderness - Neurological Exam Neurological exam: Present: alert, oriented X3, no focal deficits. Absent: facial droop, speech deficit - Skin Skin exam: Present: dry, intact, normal color, warm. Absent: rash, urticaria
== END 2017-06-25 14:25 | disposition home or self-care (01) ==
LOC: EMEROO 15:42 → 3BNU 15:42
PROVIDERS: ADMIT Nurse Practitioner Family; ATTEND Nurse Practitioner Family

== ENCOUNTER 2017-07-15 21:41 | Observation (INO) ==
[2017-07-15] MEDS ORDERED: Nitroglycerin 0.4 MG TAB.SUBL SL PRN (22:11)
--- NOTE | 2017-07-15 22:15 | Emergency Department Note ---
Disposition Clinical Impression: Unstable angina Chest pain Qualifiers: Chest pain type: unspecified Qualified Code(s): R07.9 - Chest pain, unspecified Disposition: Admitted As Inpatient Condition: Fair Time of Disposition: 23:05 Chest Pain HPI - General Chief Complaint: ED Chest Pain Stated Complaint: chest pain Time Seen by Provider: 07/15/17 22:00 Source: patient, EMS Mode of arrival: EMS Limitations: no limitations Vital Signs Reviewed: Yes Nursing Notes Reviewed: Yes - History of Present Illness HPI Narrative: 52 year old gentleman history of hypertension, ACS with angioplasty over several years ago. For evaluation of chest pain. Patient states his pain started around 9:00 this evening. Chest pressure with radiation to the jaw and left arm. Reports some nausea noted paresis or vomiting. Reports some dyspnea. No fevers or cough. Patient states that he took aspirin as well as nitroglycerin which helped improve his pain. Patient also reports he has history of bilateral PEs. Those were provoked PEs in the past with postoperative consequent is from hip fracture. Patient states that he did have a long car ride back from [place] taking the bus. Severity scale (1-10): 8 - Related Data Home Medications Medication Instructions Recorded Confirmed Benztropine Mesylate 2 mg PO BID 10/28/16 06/23/17 Gabapentin [Neurontin] 900 mg PO TID 10/28/16 06/23/17 [place] Carbonate 300 mg PO BID 10/28/16 06/23/17 Losartan Potassium [Cozaar] 25 mg PO DAILY 10/28/16 06/23/17 Venlafaxine HCl [Venlafaxine HCl 225 mg PO HS 10/28/16 06/23/17 ER] Atorvastatin Calcium [Lipitor] 20 mg PO HS 05/09/17 06/23/17 Oxybutynin [Ditropan] 10 mg PO TID 05/09/17 06/23/17 Potassium Chloride [Klor-Con] 10 - 20 meq PO BID 05/09/17 06/23/17 Carbidopa/Levodopa 25/100 [Sinemet 1 each PO TID 06/23/17 06/23/17 25/100] HYDROcodone/Acet 5/325 mg [[place] 1 tab PO Q6H PRN 06/23/17 06/23/17 5-325 mg] LORazepam [Ativan] 2 mg PO ONCE PRN 06/23/17 06/23/17 Nitroglycerin [Nitrostat] 0.4 mg SL Q5M PRN 06/23/17 06/23/17 Ranitidine HCl [Zantac] 150 mg PO HS 06/23/17 06/23/17 Testosterone Cypionate [Testone 150 mg IM TH 06/23/17 06/23/17 Cik] Previous Rx's Medication Instructions Recorded Aspirin Enteric Coated [Aspirin EC] 325 mg PO DAILY #30 tablet. 05/11/17 Clindamycin [Cleocin] 450 mg PO Q6HR 10 Days 06/30/17 Mupirocin Calcium [Mupirocin] 30 gm TP BID #1 cream..g. 06/30/17 Allergies Allergy/AdvReac Type Severity Reaction Status Date / Time cephalexin [From Keflex] Allergy Severe Anaphylaxis Verified 06/30/17 00:41 latex Allergy Mild Hives Verified 06/30/17 00:41 ceftriaxone [From Rocephin] Allergy Anaphylaxis Verified 06/30/17 00:41 clams Allergy Anaphylaxis Verified 06/30/17 00:41 tramadol Allergy Seizure Verified 06/30/17 00:41 All systems ED: reviewed and negative except as stated. Constitutional: Reports: as per HPI. Denies: fever Eyes: Reports: as per HPI ENT ED: Reports: as per HPI Cardiovascular: Reports: as per HPI, chest pain Respiratory: Reports: as per HPI, dyspnea Gastrointestinal: Reports: as per HPI, nausea. Denies: abdominal pain, vomiting Genitourinary: Reports: as per HPI Musculoskeletal: Reports: as per HPI Integumentary: Reports: as per HPI Neurological: Reports: as per HPI Psychiatric: Reports: as per HPI Endocrine: Reports: as per HPI Hematological/Lymphatic: Reports: as per HPI Allergic/Immunologic: Reports: as per HPI Chest Pain PMH - Past Medical History Medical history: Reports: CHF, coronary artery disease, CVA, hypertension, migraine, myocardial infarction, pulmonary embolus, seizures, TIA, other Surgical history: Reports: angioplasty/stent, cholecystectomy, hip replacement ( Bilateral), orthopedic, other (Right meniscus, left ACL), other Psychiatric history: Reports: anxiety, bipolar, depression, PTSD - Social History Smoking Status: Never smoker Alcohol use: Reports: occasionally Drug use: Reports: none Physical Exam - General Limitations: no limitations General appearance: alert, in no apparent distress - Head Head exam: atraumatic, normocephalic, normal inspection - Eye Eye exam: Present: normal appearance, EOMI - ENT ENT exam: normal exam, mucous membranes moist - Neck Neck exam: Present: normal inspection - Chest Chest inspection: Present: normal inspection. Absent: symmetric chest wall rise - Respiratory Respiratory exam: Present: normal lung sounds bilaterally. Absent: respiratory distress - Cardiovascular Cardiovascular exam: Present: regular rate, normal rhythm. Absent: systolic murmur - Abdominal Exam Abdominal exam: Present: soft, Non-Tender - Extremities Exam Extremities exam: Present: normal inspection. Absent: pedal edema - Back Exam Back exam: Present: normal inspection - Neurological Exam Neurological exam: Present: alert, oriented X3, CN II-XII intact - Skin Skin exam: Present: warm, dry, intact, normal color Course Course Narrative: Seen and examined. Patient no acute distress. Patient sleeping and had been woken up for evaluation. Patients receiving a cardiac evaluation with EKG, troponin and chest x-ray. Patients also received aspirin prior to arrival. Patient will get redosed with nitroglycerin. - Reevaluation(s) Reevaluation #1: Patient had a negative stress test 06/24/17. Time: 22:24 Reevaluation #2: Patient's appeared to be resting comfortably. Patient is sleeping. Time: 22:56 Reevaluation #3: Patient seen and examined. Patient was awoken for reevaluation. Plan of care was discussed. Patient states that he would like to be admitted for further evaluation of his heart. Time: 23:08 Vital Signs Temperature 98 F 07/15/17 21:42 Pulse Rate 80 07/15/17 21:42 Respiratory Rate 20 07/15/17 21:42 Blood Pressure 139/86 07/15/17 21:42 O2 Sat by Pulse Oximetry 97 07/15/17 21:42 Temperature 98 F 07/15/17 21:42 Pulse Rate 57 07/16/17 00:45 Respiratory Rate 18 07/16/17 01:19 Blood Pressure 114/79 07/16/17 01:19 O2 Sat by Pulse Oximetry 98 07/16/17 00:45 Oxygen Delivery Oxygen Delivery Room Air Chest Pain - MDM Narrative Medical decision making narrative: 52 old gentleman with a history of hypertension, ACS in the past visits for evaluation of chest pain. Patient states his chest pain started nonexertional retro-sternal with radiation to left arm and jaw. Occurred hour prior to arrival. Patient to take nitroglycerin with relief. Also took full dose aspirin prior to arrival. Patient's pain was controlled in the emergency department. Patient had basic lab work including a troponin which was negative as well as an EKG. Patient did have a history of PEs in the past and states she was on long car rides from [place]. Patient had a d-dimer obtained as well. Patient does have risk factors as well as a concerning history. Patient did have a stress test obtained a month ago which was negative. Patient would likely need admission for trending troponins as well as a cardiac evaluation. - Lab Data Lab results reviewed: Yes I reviewed the patient's lab results. Result diagrams: 07/15/17 22:17 07/15/17 22:17 Lab Results 07/15/17 07/15/17 07/15/17 Range/Units 22:17 22:17 22:17 WBC 8.2 (4.3-11.1) K/mcL RBC 3.96 L (4.19-5.50) M/mcL Hgb 11.7 L (12.9-16.9) g/dL Hct 36.1 L (37.5-50.1) % MCV 91.2 (83.0-100.0) fL MCH 29.5 (28.0-33.3) pg MCHC 32.4 (31.6-35.5) g/dL RDW 13.2 (11.5-14.5) % Plt Count 189 (140-400) K/mcL MPV 9.1 L (9.4-12.4) fL Immature Gran % 0.2 (0-4) % Seg Neutrophils % 72.3 % Lymphocytes % 16.5 % Monocytes % 7.3 % Eosinophils % 3.2 % Basophils % 0.5 % Neutrophils # 5.9 (1.6-8.9) K/mcL Lymphocytes # 1.4 (0.6-4.6) K/mcL Monocytes # 0.6 (0.0-1.3) K/mcL Eosinophils # 0.3 (0.0-0.6) K/mcL Basophils # 0.0 (0.0-0.2) K/mcL D-Dimer (0-500) ng/mLFEU Sodium 139 (136-145) mEq/L Potassium 3.6 (3.5-4.5) mEq/L Chloride 112 H (98-109) mEq/L Carbon Dioxide 21 (19-29) mEq/L BUN 14 (8-26) mg/dL Creatinine 0.69 L (0.72-1.25) mg/dL Est GFR ( Amer) > 60 (> 60) Est GFR (Non-Af Amer) > 60 (> 60) BUN/Creatinine Ratio 20 (6-26) Glucose 101 H (70-99) mg/dL Calculated Osmolality 289 (280-300) Calcium 8.4 L (8.6-10.8) mg/dL Troponin I (0-0.03) ng/mL B-Natriuretic Peptide 10 (0-100) pg/mL 07/15/17 07/15/17 Range/Units 22:17 22:17 WBC (4.3-11.1) K/mcL RBC (4.19-5.50) M/mcL Hgb (12.9-16.9) g/dL Hct (37.5-50.1) % MCV (83.0-100.0) fL MCH (28.0-33.3) pg MCHC (31.6-35.5) g/dL RDW (11.5-14.5) % Plt Count (140-400) K/mcL MPV (9.4-12.4) fL Immature Gran % (0-4) % Seg Neutrophils % % Lymphocytes % % Monocytes % % Eosinophils % % Basophils % % Neutrophils # (1.6-8.9) K/mcL Lymphocytes # (0.6-4.6) K/mcL Monocytes # (0.0-1.3) K/mcL Eosinophils # (0.0-0.6) K/mcL Basophils # (0.0-0.2) K/mcL D-Dimer 335 (0-500) ng/mLFEU Sodium (136-145) mEq/L Potassium (3.5-4.5) mEq/L Chloride (98-109) mEq/L Carbon Dioxide (19-29) mEq/L BUN (8-26) mg/dL Creatinine (0.72-1.25) mg/dL Est GFR ( Amer) (> 60) Est GFR (Non-Af Amer) (> 60) BUN/Creatinine Ratio (6-26) Glucose (70-99) mg/dL Calculated Osmolality (280-300) Calcium (8.6-10.8) mg/dL Troponin I 0.00 (0-0.03) ng/mL B-Natriuretic Peptide (0-100) pg/mL - Radiology Data Radiology results reviewed: Yes I reviewed the patient's radiology results. Chest X-Ray 07/15/17 22:00 IMPRESSION: Negative portable chest. D/ / Tarik Ybarra MD / Tarik Ybarra MD Interpreting Provider: Tarik Ybarra MD - EKG Data EKG attestation: Yes I reviewed and interpreted this EKG. EKG shows normal: sinus rhythm Rate: normal Rhythm: NSR [place]/QRS: normal Q waves: aVR T wave inversions noted in: aVR When compared to previous EKG there are: no significant changes Interpretation: no acute changes Heart Score - Score History: Highly Suspicious EKG: Non Specific repolarisation Disturbance Age: 45-65 Risk Factors: Equal/Greater than 3 risk factor or history of atherosclerotic disease Troponin: Less than normal limit HEART Score Total: 6 S.B.A.R. - S.B.A.R. Situation: Demographics Background: Presenting Complaint Assessment: Vital Signs, Course and respsone to treatment, Patient/Family Expectation Recommendation: Barrier(s) to disposition, Recommendation based on pending studies, treatments, or consults S.B.A.R. Report Given to: Dr. España S.B.A.R. Repor Time: 00:38 Attestation Statement - Attestation Attestation: I, Tam Neal, examined this patient and my medical decision-making was reviewed with the [employer]/PA/Advanced Practice Nurse/Resident Physician. I agree with the documented findings, disposition and treatment plan as described except to the extent set forth below. 52-year-old male presents to the emergency department for concerns of chest pain. Patient states he had acute onset of a pressure type of chest pain in the center of his chest with the past few hours prior to arrival. Patient states he became short of breath and diaphoretic during the episode chest pain. Last stress test was within the past month and was negative. During his evaluation in emergency department the patient became hypotensive. His initial troponin was negative. Patient feels comfortable to be admitted to the hospital for further care and evaluation of his chest pain.
[2017-07-15 22:30] LABS: Basophils % 0.5 %; Eosinophils # 0.3 K/mcL (0.0-0.6); Eosinophils % 3.2 %; Hematocrit 36.1 % (37.5-50.1); Hemoglobin 11.7 g/dL (12.9-16.9); Immature Granulocytes % 0.2 % (0-4); Lymphocytes # 1.4 K/mcL (0.6-4.6); Lymphocytes % 16.5 %; Mean Corpuscular HGB Conc 32.4 g/dL (31.6-35.5); Mean Corpuscular Hemoglobin 29.5 pg (28.0-33.3); Mean Corpuscular Volume 91.2 fL (83.0-100.0); Mean Platelet Volume 9.1 fL (9.4-12.4); Monocytes # 0.6 K/mcL (0.0-1.3); Monocytes % 7.3 %; Neutrophils # 5.9 K/mcL (1.6-8.9); Platelet Count 189 K/mcL (140-400); Red Blood Count 3.96 M/mcL (4.19-5.50); Red Cell Distribution Width 13.2 % (11.5-14.5); Segmented Neutrophils % 72.3 %
[2017-07-15 22:39] LABS: BUN/Creatinine Ratio 20 (6-26); Blood Urea Nitrogen 14 mg/dL (8-26); Calcium 8.4 mg/dL (8.6-10.8); Carbon Dioxide 21 mEq/L (19-29); Chloride 112 mEq/L (98-109); Glucose 101 mg/dL (70-99); Osmolality,Calculated 289 (280-300); Potassium 3.6 mEq/L (3.5-4.5); Sodium 139 mEq/L (136-145); eGFR For African Americans > 60 (> 60); eGFR For Non-African Americans > 60 (> 60)
[2017-07-16] MEDS ORDERED: 0.9 % Sodium Chloride 1,000 ML IVC ONE (00:33)
[2017-07-16] MEDS ORDERED: MOM Conc 10 ML UD.LIQ PO PRN (02:02)
[2017-07-16] MEDS ORDERED: Acetaminophen 325 MG TABLET PO PRN (02:02)
[2017-07-16] MEDS ORDERED: Ondansetron ODT 4 MG TAB.RAPDIS SL PRN (02:02)
[2017-07-16] MEDS ORDERED: *HR* Morphine 2 MG/ML SYRINGE IVP PRN (02:02)
[2017-07-16] MEDS ORDERED: Naloxone 0.4 MG/ML INJ IVP PRN (02:02)
[2017-07-16] MEDS ORDERED: Nitroglycerin 0.4 MG TAB.SUBL SL PRN (02:06)
[2017-07-16] MEDS ORDERED: 0.9 % Sodium Chloride 1,000 ML IVC SCH (02:15)
[2017-07-16] MEDS ORDERED: Famotidine 20 MG/2 ML VIAL IVP SCH (06:00)
--- NOTE | 2017-07-16 06:50 | Internal Med History&Physical ---
Date of Encounter: 07/16/17 Time of Encounter: 06:47 Assessment and Plan (1) Chest pain Current visit: Yes Status: Acute Patient had recent stress test which was negative. He had full cardiac evaluation. Will check serial cardiac enzymes and if they are negative he can be discharged. There were some concern regarding secondary gain in the past Qualifiers: Chest pain type: unspecified Qualified Code(s): R07.9 - Chest pain, unspecified (2) CAD (coronary artery disease) Current visit: Yes Status: Chronic Continue home medication Qualifiers: Coronary Disease-Associated Artery/Lesion type: [place] artery [place] vs. transplanted heart: [place] heart Associated angina: without angina Qualified Code(s): I25.10 - Atherosclerotic heart disease of [place] coronary artery without angina pectoris (3) Hypertension Current visit: Yes Status: Chronic Resume home medication Qualifiers: Hypertension type: essential hypertension Qualified Code(s): I10 - Essential (primary) hypertension (4) HLD (hyperlipidemia) Current visit: Yes Status: Chronic Resume home medications Qualifiers: Hyperlipidemia type: unspecified Qualified Code(s): E78.5 - Hyperlipidemia , unspecified Internal Medicine - H&P: HPI Chief complaint: Chest pain Admitted From: Home Plans for Post Hospital Care: Home History of present illness: Mr. Brown is a 52 year old gentleman history of hypertension, ACS with angioplasty over several years ago. For evaluation of chest pain. Patient states his pain started around 9:00 this evening. Chest pressure with radiation to the jaw and left arm. Reports some nausea noted paresis or vomiting. Reports some dyspnea. No fevers or cough. Patient states that he took aspirin as well as nitroglycerin which helped improve his pain. Patient also reports he has history of bilateral PEs. Those were provoked PEs in the past with postoperative consequent is from hip fracture. Patient states that he did have a long car ride back from [place] taking the bus. Past Med Surg Social Fam HX - Past Medical History Medical history: CHF, coronary artery disease, CVA, hypertension, migraine, myocardial infarction, pulmonary embolus, seizures, TIA, other Psychiatric history: anxiety, bipolar, depression, PTSD - Past Surgical History Surgical History: angioplasty/stent, cholecystectomy, hip replacement (Bilateral ), orthopedic, other (Right meniscus, left ACL), other - Social History Smoking Status: Never smoker Smokeless Tobacco Status: No Alcohol use: occasionally Drug use: none - Family History Mother Adopted: Yes Father Adopted: Yes Living Status: Hx Family Cardiac Disorders: Yes Internal Medicine - H&P: Meds Benztropine Mesylate 2 mg PO BID 10/28/16 [History] Gabapentin [Neurontin] 900 mg PO TID 10/28/16 [History] [place] Carbonate 300 mg PO BID 10/28/16 [History] Losartan Potassium [Cozaar] 25 mg PO DAILY 10/28/16 [History] Venlafaxine HCl [Venlafaxine HCl ER] 225 mg PO HS 10/28/16 [History] Atorvastatin Calcium [Lipitor] 20 mg PO HS 05/09/17 [History] Oxybutynin [Ditropan] 10 mg PO TID 05/09/17 [History] Potassium Chloride [Klor-Con] 10 - 20 meq PO BID 05/09/17 [History] Aspirin Enteric Coated [Aspirin EC] 325 mg PO DAILY #30 tablet. 05/11/17 [Rx] Carbidopa/Levodopa 25/100 [Sinemet 25/100] 1 each PO TID 06/23/17 [History] HYDROcodone/Acet 5/325 mg [[place] 5-325 mg] 1 tab PO Q6H PRN 06/23/17 [History] LORazepam [Ativan] 2 mg PO ONCE PRN 06/23/17 [History] Nitroglycerin [Nitrostat] 0.4 mg SL Q5M PRN 06/23/17 [History] Ranitidine HCl [Zantac] 150 mg PO HS 06/23/17 [History] Testosterone Cypionate [Testone Cik] 150 mg IM TH 06/23/17 [History] Clindamycin [Cleocin] 450 mg PO Q6HR 10 Days 06/30/17 [Rx] Mupirocin Calcium [Mupirocin] 30 gm TP BID #1 cream..g. 06/30/17 [Rx] 3 Allergy/AdvReac Type Severity Reaction Status Date / Time cephalexin [From Keflex] Allergy Severe Anaphylaxis Verified 06/30/17 00:41 latex Allergy Mild Hives Verified 06/30/17 00:41 ceftriaxone [From Rocephin] Allergy Anaphylaxis Verified 06/30/17 00:41 clams Allergy Anaphylaxis Verified 06/30/17 00:41 tramadol Allergy Seizure Verified 06/30/17 00:41 All Systems PM: A 10-system review of systems was performed and is negative for pertinent findings except as documented above in the HPI. - Constitutional Constitutional: no chills, no fever(s), no night sweats - EENT Eyes: no change in vision, no discharge, no pain, no photophobia Ears: no ear discharge, no ear pain, no tinnitus Nose, mouth and throat: no dysphagia, no nasal discharge, no neck pain, no sore throat - Cardiovascular Cardiovascular ROS IM: no chest pain, no diaphoresis, no dyspnea, no lightheadedness, no palpitations, no syncope - Respiratory Respiratory: no cough, no dyspnea, no wheezing, no excessive phlegm production - Gastrointestinal Gastrointestinal: no abdominal pain, no diarrhea, no hematemesis, no hematochezia, no melena, no nausea, no vomiting - Musculoskeletal Musculoskeletal ROS IM: no numbness, no tingling - Integumentary Integumentary IM: no rash, no unusual bruising - Neurological Neurological ROS: no confusion, no convulsions, no focal weakness, no numbness, no tingling, no tremor(s) - Hematologic/Lymphatic Hematologic/Lymphatic: no easy bruising - Constitutional Vitals: Temp Pulse Resp BP Pulse Ox 98 F 57 18 114/79 98 07/15/17 21:42 07/16/17 00:45 07/16/17 01:19 07/16/17 01:19 07/16/17 00:45 - Head Head exam: Present: atraumatic, normocephalic - Eye Eye exam: Present: PERRL, conjuntiva pink, sclera anicteric Pupils: Present: PERRL - Neck Neck exam general surgery: Present: supple, trachea midline. Absent: lymphadenopathy - Respiratory Respiratory exam: Present: CTAB. Absent: accessory muscle use, rales, rhonchi, wheezes - Cardiovascular Cardiovascular exam: Present: RRR, +S1, +S2. Absent: diastolic murmur, gallop, rubs, systolic murmur - GI/Abdominal GI/Abdominal exam: Present: normal bowel sounds, soft, no peritoneal signs. Absent: distended, tenderness - Extremities Exam Extremities exam: Present: warm, radial pulses palpable and symmetrical. Absent : calf tenderness, cyanotic, pedal edema - Neurological Exam Neurological exam: Present: CN II-XII intact, oriented X3, no focal deficits. Absent: pronater drift, facial droop, speech deficit - Skin Skin exam: Present: dry, intact Internal Med - H&P Results - Labs CBC & Chem 7: 07/15/17 22:17 07/15/17 22:17 Labs: Cardiac Enzymes 07/16/17 Range/Units 04:21 Troponin I 0.00 (0-0.03) ng/mL
[2017-07-16 11:22] VITALS: BP 138/88
--- NOTE | 2017-07-16 13:09 | Discharge Summary ---
Date of Encounter: 07/16/17 Time of Encounter: 10:30 - Discharge Diagnosis (1) Chest pain Priority: Primary Status: Resolved Comments: Patient denied chest pain or shortness of breath above his normal on day of discharge. Chest x-ray negative. Patient had a negative stress test and unremarkable echocardiogram last month. Troponins negative 3. ACS ruled out. Follow-up outpatient. Qualifiers: Chest pain type: unspecified Qualified Code(s): R07.9 - Chest pain, unspecified (2) Factitious disorder Priority: Secondary Status: Chronic Comments: Neurologically the conversation with him, patient made several claims that were unable to be substantiated. One of which was that during his stress test last month, patient claims that he had gone into SVT. I have read the report, patient was in sinus tach with a heart rate of 103. No indication of SVT. Patient became very upset and stated that he knew what the monitor read and he would go after the milieu technician's license for lying. He was reassured that the milieu technician would have no reason to lie. (3) Bipolar 1 disorder Priority: Secondary Status: Chronic Comments: After lengthy conversation with the patient, mood and affect relatively stable. He displayed delusions of grandeur and perseverations but otherwise stable (4) CAD (coronary artery disease) Priority: Secondary Status: Chronic Comments: ACS ruled out. Patient denied chest pain on day of discharge. Qualifiers: Coronary Disease-Associated Artery/Lesion type: [place] artery [place] vs. transplanted heart: [place] heart Associated angina: without angina Qualified Code(s): I25.10 - Atherosclerotic heart disease of [place] coronary artery without angina pectoris (5) Cerebrovascular accident Priority: Secondary Status: Chronic Comments: No new focal neurological weakness is present during this admission. Qualifiers: CVA mechanism: unspecified Qualified Code(s): I63.9 - Cerebral infarction, unspecified (6) Chronic diastolic CHF (congestive heart failure) Priority: Secondary Status: Chronic Comments: No acute exacerbation. Euvolemic on examination and denied shortness of breath above his norm during this admission. (7) HLD (hyperlipidemia) Priority: Secondary Status: Chronic Comments: Lipid panel checked last month, unremarkable, continue statin. Low-cholesterol diet. (8) Hypertension Priority: Secondary Status: Chronic Comments: Controlled, follow-up outpatient (9) DVT prophylaxis Priority: Primary Status: Acute Comments: Observation patient. Up ad miracle. - Discharge Medications Home Medications: Benztropine Mesylate 2 mg PO BID 10/28/16 [History] Gabapentin [Neurontin] 900 mg PO TID 10/28/16 [History] [place] Carbonate 300 mg PO BID 10/28/16 [History] Losartan Potassium [Cozaar] 25 mg PO DAILY 10/28/16 [History] Venlafaxine HCl [Venlafaxine HCl ER] 225 mg PO HS 10/28/16 [History] Atorvastatin Calcium [Lipitor] 20 mg PO HS 05/09/17 [History] Oxybutynin [Ditropan] 10 mg PO TID 05/09/17 [History] Potassium Chloride [Klor-Con] 10 - 20 meq PO BID 05/09/17 [History] Aspirin Enteric Coated [Aspirin EC] 325 mg PO DAILY #30 tablet. 05/11/17 [Rx] Carbidopa/Levodopa 25/100 [Sinemet 25/100] 1 each PO TID 06/23/17 [History] HYDROcodone/Acet 5/325 mg [[place] 5-325 mg] 1 tab PO Q6H PRN 06/23/17 [History] LORazepam [Ativan] 2 mg PO ONCE PRN 06/23/17 [History] Nitroglycerin [Nitrostat] 0.4 mg SL Q5M PRN 06/23/17 [History] Ranitidine HCl [Zantac] 150 mg PO HS 06/23/17 [History] Testosterone Cypionate [Testone Cik] 150 mg IM TH 06/23/17 [History] Allergies/Adverse Reactions: 3 Allergy/AdvReac Type Severity Reaction Status Date / Time cephalexin [From Keflex] Allergy Severe Anaphylaxis Verified 06/30/17 00:41 latex Allergy Mild Hives Verified 06/30/17 00:41 ceftriaxone [From Rocephin] Allergy Anaphylaxis Verified 06/30/17 00:41 clams Allergy Anaphylaxis Verified 06/30/17 00:41 tramadol Allergy Seizure Verified 06/30/17 00:41 Date of admission: 07/16/17 00:56 Primary care physician: PCP NONE Consults: phlebotomy services technician brought on board as the patient stated he could not afford his medications Discharging clinician: Jyoti Stanton Anticipated date of discharge: 07/16/17 - Patient Status Disposition: Home, Self-Care Condition: Fair Functional capacity at discharge: independent ambulation Overall status at discharge: patient is back to baseline - Discharge Instructions Follow Up With: Rickie Chavira MD [Non-Partnered Physician] - noni king [Other] Additional Instructions: Follow-up with primary care provider within one to 2 weeks, follow up with psychiatrist as needed - Diet and Activity Activity: increase activity as tolerated Diet: low fat, low cholesterol, low salt diet Hospital course: Mr. Brown is a 52 year old male with past medical history of hypertension, CAD status post angioplasty, prior CVA, migraines, prior PE, prior seizures, anxiety /bipolar/depression/PTSD. Patient presented to the emergency department chief complaint of chest pain that started on the evening of presentation. Patient endorsed chest pressure with radiation to his jaw and left arm. Patient also endorsed nausea but no vomiting. He also endorsed dyspnea. He denied fevers or cough. Patient stating he took aspirin and nitroglycerin and improved his pain at home. Patient also concerned about his history of bilateral PEs that occurred postoperatively after hip fracture. Of note, this is the patient's 32nd EMS visit in the past year. Workup in the emergency department unremarkable. Chest x-ray negative. Patient had a stress test and an echocardiogram last month. Stress test was negative. Echocardiogram was unremarkable with ejection fraction of 55-60%. Patient was admitted to the hospitalist service for further evaluation and management. Troponins were negative 3. After admitted, patient denied shortness of breath or chest pain. ACS ruled out. Patient had no signs clinically that were indicative of PEs. No shortness of breath, no hypoxia, no tachycardia. No indication for CTA during this admission which was explained to the patient and he was in agreement. Of note, during this admission, patient was perseverating on prior admissions and on prior physicians and prior EMS workers that he was going to "get all of their licenses taken away." Patient also had issues with delusions of grandeur and perseverations during this admission. Otherwise, his mood and affect were stable. Multiple attempts were made to have the patient focus on this visit and why he was here but he continued to speak about prior visits and prior issues with other providers. I did verify with the patient that he had no complaints or issues with this present visit with this provider. I again verified with him that he had no active concerns about this specific visit several times prior to discharge and he again stated that he had no issues. He did state that he was unable to afford his medications and social services manager was brought on board. He was discharged home in stable condition with close outpatient follow-up recommended. ITS Impressions Chest X-Ray 07/15/17 22:00 IMPRESSION: Negative portable chest. D/ / Tarik Ybarra MD / Tarik Ybarra MD Interpreting Provider: Tarik Ybarra MD [facility] PRIOR TESTING: Exercise Nuclear Stress Date of Study: 06/24/2017 Impression: Perfusion imaging was negative for ischemia or infarct. Exercise ECG was non-diagnostic for ischemia secondary to artifact present during stress and into recovery, limiting interpretation. Exercise capacity was poor. Blunted blood pressure response. Patient described 4/10 jaw pain prior to the start of the study. This increased to 7/10 during exercise then returned to 4/10 at and exercise. Gated EF = 64%. Recommend clinical correlation. Echocardiogram impressions 06/16/17: LVEF 55-60%. Normal LV chamber size, wall thickness and function. Normal right ventricular structure and function. No evidence of PFO with agitated saline contrast. No evidence of pulmonary hypertension. No significant valvular dysfunction. - Time Spent with Patient Total time spent providing and/or coordinating discharge services: - Constitutional Vitals: Temp Pulse Resp BP Pulse Ox 97.4 F L 76 16 138/88 98 07/16/17 11:21 07/16/17 11:21 07/16/17 11:21 07/16/17 11:21 07/16/17 11:21 General appearance: Present: A&O X 3, pleasant, no acute distress, answers questions appropriately - Head Head exam: Present: atraumatic, normocephalic - Eye Eye exam: Present: PERRL, conjuntiva pink, sclera anicteric Pupils: Present: PERRL - Neck Neck exam general surgery: Present: supple, trachea midline. Absent: lymphadenopathy - Respiratory Respiratory exam: Present: CTAB. Absent: accessory muscle use, rales, respiratory distress, rhonchi, wheezes - Cardiovascular Cardiovascular exam: Present: RRR, +S1, +S2. Absent: diastolic murmur, gallop, rubs, systolic murmur - GI/Abdominal GI/Abdominal exam: Present: normal bowel sounds, soft, no peritoneal signs. Absent: distended, tenderness - Extremities Exam Extremities exam: Present: warm, radial pulses palpable and symmetrical. Absent : calf tenderness, cyanotic, pedal edema - Neurological Exam Neurological exam: Present: alert, CN II-XII intact, normal gait, oriented X3, no focal deficits, strengths equal and symetr throughout. Absent: pronater drift, facial droop, speech deficit - Psychiatric Psychiatric exam: Absent: homicidal ideation, suicidal ideation - Expanded Psychiatric Exam Focused psych exam: Present: delusional, flight of ideas, perseverating, restlessness - Skin Skin exam: Present: dry, intact, normal color, warm
--- NOTE | 2017-07-16 15:03 | Electrocardiograph Report ---
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
[2017-07-16 15:04] LABS: Basophils # 0.1 K/mcL (0.0-0.2); Basophils % 0.8 %; Eosinophils # 0.2 K/mcL (0.0-0.6); Eosinophils % 3.8 %; Hematocrit 38.9 % (37.5-50.1); Hemoglobin 12.6 g/dL (12.9-16.9); Immature Granulocytes % 0.2 % (0-4); Lymphocytes % 15.6 %; Mean Corpuscular HGB Conc 32.4 g/dL (31.6-35.5); Mean Corpuscular Volume 92.6 fL (83.0-100.0); Mean Platelet Volume 9.1 fL (9.4-12.4); Monocytes # 0.4 K/mcL (0.0-1.3); Monocytes % 5.5 %; Neutrophils # 4.7 K/mcL (1.6-8.9); Platelet Count 190 K/mcL (140-400); Red Cell Distribution Width 13.2 % (11.5-14.5); Segmented Neutrophils % 74.1 %
[2017-07-16 15:07] LABS: INR 1.1; Prothrombin Time 11.3 Seconds (9.4-12.1)
[2017-07-16 15:10] LABS: Activated Partial Thrombo Time 32.1 Seconds (26.0-36.0); BUN/Creatinine Ratio 13 (6-26); Blood Urea Nitrogen 10 mg/dL (8-26); Carbon Dioxide 26 mEq/L (19-29); Chloride 112 mEq/L (98-109); Glucose 107 mg/dL (70-99); Osmolality,Calculated 294 (280-300); Potassium 4.1 mEq/L (3.5-4.5); Sodium 142 mEq/L (136-145); eGFR For African Americans > 60 (> 60); eGFR For Non-African Americans > 60 (> 60)
[2017-07-16] MEDS ORDERED: *HR* LORazepam 2 MG/ML VIAL IVP ONE (15:55)
== END 2017-07-16 18:19 | disposition home or self-care (01) ==
LOC: 3BNU 21:41 → EMEROO 21:41 → 3BNU 07-16 01:33
PROVIDERS: ADMIT Nurse Practitioner Family; ATTEND Nurse Practitioner Family

== ENCOUNTER 2017-08-01 21:02 | Observation (INO) ==
--- NOTE | 2017-08-01 21:13 | Emergency Department Note ---
Disposition Clinical Impression: Chest pain of uncertain etiology Disposition: Admitted As Inpatient Condition: Fair Time of Disposition: 03:48 Chest Pain HPI - General Chief Complaint: ED Chest Pain Stated Complaint: chest pain Time Seen by Provider: 08/01/17 21:10 Vital Signs Reviewed: Yes Nursing Notes Reviewed: Yes - History of Present Illness HPI Narrative: Mr. Brown, 52-year-old male, presents from home via EMS for evaluation of chest pain. Onset 45 minutes prior to arrival. Initially started with left-sided jaw pain and left arm heaviness soon after which began the substernal chest heaviness. Associated with nausea. No dyspnea or diaphoresis. Unrelieved with one sublingual nitroglycerin. Patient received 324 mg aspirin in route by EMS. Patient's last stress test was exercise stress test a week or 2 ago-he reportedly failed. No subsequent catheter. Patient's last catheter was in 2013. PMH: Congestive heart failure, hypertension, hyperlipidemia, CAD. ACS-LAD, no stent. Multiple TIA-has received tPA 3 times this year. - Related Data Home Medications Medication Instructions Recorded Confirmed Benztropine Mesylate 2 mg PO BID 10/28/16 08/01/17 Gabapentin [Neurontin] 900 mg PO TID 10/28/16 08/01/17 [place] Carbonate 300 mg PO BID 10/28/16 08/01/17 Losartan Potassium [Cozaar] 25 mg PO DAILY 10/28/16 08/01/17 Venlafaxine HCl [Venlafaxine HCl 225 mg PO HS 10/28/16 08/01/17 ER] Atorvastatin Calcium [Lipitor] 20 mg PO HS 05/09/17 08/01/17 Oxybutynin [Ditropan] 10 mg PO TID 05/09/17 08/01/17 Potassium Chloride [Klor-Con] 10 meq PO TID 05/09/17 08/01/17 Carbidopa/Levodopa 25/100 [Sinemet 1 each PO TID 06/23/17 08/01/17 25/100] HYDROcodone/Acet 5/325 mg [[place] 1 tab PO Q6H PRN 06/23/17 08/01/17 5-325 mg] LORazepam [Ativan] 2 mg PO ONCE PRN 06/23/17 08/01/17 Nitroglycerin [Nitrostat] 0.4 mg SL Q5M PRN 06/23/17 08/01/17 Ranitidine HCl [Zantac] 150 mg PO HS 06/23/17 08/01/17 Testosterone Cypionate [Testone 150 mg IM TH 06/23/17 08/01/17 Cik] Aspirin Enteric Coated [Aspirin EC] 81 mg PO DAILY 08/01/17 08/01/17 Clopidogrel [Plavix] 75 mg PO DAILY 08/01/17 08/01/17 Allergies Allergy/AdvReac Type Severity Reaction Status Date / Time cephalexin [From Keflex] Allergy Severe Anaphylaxis Verified 08/01/17 21:04 latex Allergy Mild Hives Verified 08/01/17 21:04 ceftriaxone [From Rocephin] Allergy Anaphylaxis Verified 08/01/17 21:04 clams Allergy Anaphylaxis Verified 08/01/17 21:04 tramadol Allergy Seizure Verified 08/01/17 21:04 All systems ED: reviewed and negative except as stated. Review of Systems: As Per HPI Chest Pain PMH - Past Medical History Medical history: Reports: CHF, coronary artery disease, CVA, hypertension, migraine, myocardial infarction, pulmonary embolus, seizures, TIA, other Surgical history: Reports: angioplasty/stent, cholecystectomy, hip replacement ( Bilateral), orthopedic, other (Right meniscus, left ACL), other Psychiatric history: Reports: anxiety, bipolar, depression, PTSD - Social History Smoking Status: Former smoker Alcohol use: Reports: occasionally Drug use: Reports: none Physical Exam Vital Signs Reviewed General: Patient is alert, oriented, and in no acute distress. HEENT: No facial asymmetry. Head is normocephalic and atraumatic. Oral mucosa moist. Trachea midline. Cardiovascular: Heart regular rate and rhythm without clicks, rubs, gallops, or murmurs. No JVD. PMI nondisplaced. Respiratory: Symmetric chest rise with good respiratory effort. Bilateral breath sounds are clear without wheezing, crackles, or rhonchi. Abdomen: Bowel sounds present normoactive x4 quadrants. Abdomen is soft, nondistended, and nontender. No organomegaly noted. Skin: Warm, cool, dry. Psych: Patient's affect is appropriate for situation. Course Course Narrative: Patient presents from home via EMS for evaluation of chest pain. Onset 45 minutes prior to arrival. His symptoms began with left jaw and left arm pain after which he had substernal chest heaviness. Unrelieved with one sublingual nitroglycerin. His pain persists to this time. He received 324 aspirin in route by EMS. Patient has a concerning medical history of CAD with ACS. No stents. Last 2013. Nuclear stress test dated 06/24 2017 interpreted as homogeneous rest and stress radiotracer uptake without perfusion evidence for ischemia or infarct. Artifact present and limited interpretation. LVEF 64%. Patient's history as well as his story today are concerning. Initial troponin is 0. EKG is unremarkable. I recommend patient to be admitted for chest pain rule out ACS. I spoke with the admitting hospitalist, Dr. Joseph, who agrees to accept the patient for continued workup and evaluation. Vital Signs Temperature 97.7 F 08/01/17 21:05 Pulse Rate 65 08/01/17 21:05 Respiratory Rate 14 08/01/17 21:05 Blood Pressure 137/101 08/01/17 21:05 O2 Sat by Pulse Oximetry 94 08/01/17 21:05 Temperature 97.5 F L 08/02/17 03:18 Pulse Rate 52 08/02/17 03:18 Respiratory Rate 16 08/02/17 03:18 Blood Pressure 118/75 08/02/17 03:18 O2 Sat by Pulse Oximetry 100 08/02/17 03:18 Oxygen Delivery Oxygen Delivery Room Air Chest Pain - Lab Data Lab results reviewed: Yes I reviewed the patient's lab results. Result diagrams: 08/01/17 21:24 08/01/17 21:24 Lab Results 08/01/17 08/01/17 08/01/17 Range/Units 21:24 21:24 21:24 WBC 7.3 (4.3-11.1) K/mcL RBC 4.30 (4.19-5.50) M/mcL Hgb 13.1 (12.9-16.9) g/dL Hct 38.3 (37.5-50.1) % MCV 89.1 (83.0-100.0) fL MCH 30.5 (28.0-33.3) pg MCHC 34.2 (31.6-35.5) g/dL RDW 12.9 (11.5-14.5) % Plt Count 173 (140-400) K/mcL MPV 9.2 L (9.4-12.4) fL Immature Gran % 0.3 (0-4) % Seg Neutrophils % 72.9 % Lymphocytes % 18.7 % Monocytes % 5.5 % Eosinophils % 2.2 % Basophils % 0.4 % Neutrophils # 5.4 (1.6-8.9) K/mcL Lymphocytes # 1.4 (0.6-4.6) K/mcL Monocytes # 0.4 (0.0-1.3) K/mcL Eosinophils # 0.2 (0.0-0.6) K/mcL Basophils # 0.0 (0.0-0.2) K/mcL PT 11.5 (9.4-12.1) Seconds INR 1.1 APTT 34.1 (26.0-36.0) Seconds Sodium 139 (136-145) mEq/L Potassium 3.6 (3.5-4.5) mEq/L Chloride 108 (98-109) mEq/L Carbon Dioxide 23 (19-29) mEq/L BUN 14 (8-26) mg/dL Creatinine 0.74 (0.72-1.25) mg/dL Est GFR ( Amer) > 60 (> 60) Est GFR (Non-Af Amer) > 60 (> 60) BUN/Creatinine Ratio 19 (6-26) Glucose 173 H (70-99) mg/dL Calculated Osmolality 293 (280-300) Calcium 9.1 (8.6-10.8) mg/dL Troponin I (0-0.03) ng/mL 08/01/17 Range/Units 21:24 WBC (4.3-11.1) K/mcL RBC (4.19-5.50) M/mcL Hgb (12.9-16.9) g/dL Hct (37.5-50.1) % MCV (83.0-100.0) fL MCH (28.0-33.3) pg MCHC (31.6-35.5) g/dL RDW (11.5-14.5) % Plt Count (140-400) K/mcL MPV (9.4-12.4) fL Immature Gran % (0-4) % Seg Neutrophils % % Lymphocytes % % Monocytes % % Eosinophils % % Basophils % % Neutrophils # (1.6-8.9) K/mcL Lymphocytes # (0.6-4.6) K/mcL Monocytes # (0.0-1.3) K/mcL Eosinophils # (0.0-0.6) K/mcL Basophils # (0.0-0.2) K/mcL PT (9.4-12.1) Seconds INR APTT (26.0-36.0) Seconds Sodium (136-145) mEq/L Potassium (3.5-4.5) mEq/L Chloride (98-109) mEq/L Carbon Dioxide (19-29) mEq/L BUN (8-26) mg/dL Creatinine (0.72-1.25) mg/dL Est GFR ( Amer) (> 60) Est GFR (Non-Af Amer) (> 60) BUN/Creatinine Ratio (6-26) Glucose (70-99) mg/dL Calculated Osmolality (280-300) Calcium (8.6-10.8) mg/dL Troponin I 0.01 (0-0.03) ng/mL - EKG Data EKG attestation: Yes I reviewed and interpreted this EKG. EKG results narrative: EKG dated 08/01/17 at 21:10 interpreted as sinus rhythm with rate of 63. Normal intervals. Normal axis. Nonspecific ST-T changes. Compared to previous dated 07/31/2017 show no acute ischemic changes. Heart Score - Score History: Moderately Suspicious EKG: Normal Age: 45-65 Risk Factors: Equal/Greater than 3 risk factor or history of atherosclerotic disease Troponin: Less than normal limit HEART Score Total: 4 Attestation Statement - Attestation Attestation: I examined this patient and my medical decision-making was reviewed with the Resident Physician. I agree with the documented findings, disposition and treatment plan as described except to the extent set forth below. Chest pain, multiple risk factors. We will admit for ACS rule out and turning of cardiac biomarkers.
[2017-08-01] MEDS: Nitroglycerin 0.4 MG TAB.SUBL SL ONE ×3 (21:25→21:38)
[2017-08-01 21:33] LABS: Basophils % 0.4 %; Eosinophils # 0.2 K/mcL (0.0-0.6); Eosinophils % 2.2 %; Hematocrit 38.3 % (37.5-50.1); Hemoglobin 13.1 g/dL (12.9-16.9); Immature Granulocytes % 0.3 % (0-4); Lymphocytes # 1.4 K/mcL (0.6-4.6); Lymphocytes % 18.7 %; Mean Corpuscular HGB Conc 34.2 g/dL (31.6-35.5); Mean Corpuscular Hemoglobin 30.5 pg (28.0-33.3); Mean Corpuscular Volume 89.1 fL (83.0-100.0); Mean Platelet Volume 9.2 fL (9.4-12.4); Monocytes # 0.4 K/mcL (0.0-1.3); Monocytes % 5.5 %; Neutrophils # 5.4 K/mcL (1.6-8.9); Platelet Count 173 K/mcL (140-400); Red Cell Distribution Width 12.9 % (11.5-14.5); Segmented Neutrophils % 72.9 %
[2017-08-01 21:37] LABS: INR 1.1; Prothrombin Time 11.5 Seconds (9.4-12.1)
[2017-08-01 21:40] LABS: Activated Partial Thrombo Time 34.1 Seconds (26.0-36.0)
[2017-08-01 21:46] LABS: BUN/Creatinine Ratio 19 (6-26); Blood Urea Nitrogen 14 mg/dL (8-26); Calcium 9.1 mg/dL (8.6-10.8); Carbon Dioxide 23 mEq/L (19-29); Chloride 108 mEq/L (98-109); Glucose 173 mg/dL (70-99); Osmolality,Calculated 293 (280-300); Potassium 3.6 mEq/L (3.5-4.5); Sodium 139 mEq/L (136-145); eGFR For African Americans > 60 (> 60); eGFR For Non-African Americans > 60 (> 60)
[2017-08-01] MEDS ORDERED: Acetaminophen 325 MG TABLET PO PRN (23:25)
[2017-08-01] MEDS ORDERED: Naloxone 0.4 MG/ML INJ IVP PRN (23:25)
[2017-08-01] MEDS ORDERED: *HR* HYDROcodone/Acet 5/325 mg TABLET PO PRN (23:26)
--- NOTE | 2017-08-01 23:31 | Internal Med History&Physical ---
Date of Encounter: 08/02/17 Time of Encounter: 00:05 Assessment and Plan (1) Chest pain Current visit: Yes Status: Acute Patient with multiple admissions for chest pain Stress test , MPI negative 06/2017 Echo 06/16/17 EF preserved, normal wall motion. Stress test 03/2015 negative for ischemia or infarct. [facility] 06/2014 minimal CAD 20% mid LAD Cardiology was consulted at that time with no intervention Patient is on dAPT, continue same Trend troponins Will not repeat MPI/Stress test at this time Patient does have a history of CAD, hence a risk for cardiac event Qualifiers: Chest pain type: unspecified Qualified Code(s): R07.9 - Chest pain, unspecified (2) BPH (benign prostatic hypertrophy) with urinary obstruction Current visit: Yes Status: Chronic Continue meds (3) Bipolar 1 disorder Current visit: Yes Status: Chronic Continue meds (4) CAD (coronary artery disease) Current visit: Yes Status: Chronic Continue ASA/Plavix/Lipitor EKG is non-ischemic Mgt as in chest pain Qualifiers: Coronary Disease-Associated Artery/Lesion type: [place] artery [place] vs. transplanted heart: [place] heart Associated angina: without angina Qualified Code(s): I25.10 - Atherosclerotic heart disease of [place] coronary artery without angina pectoris (5) Factitious disorder Current visit: Yes Status: Chronic Chronic, patient with recurrent admissions for multiple complains including chest pain and TIA/CVA with several negative work ups Continue psych meds (6) HLD (hyperlipidemia) Current visit: Yes Status: Chronic Continue home meds Qualifiers: Hyperlipidemia type: unspecified Qualified Code(s): E78.5 - Hyperlipidemia , unspecified (7) HTN (hypertension) Current visit: Yes Status: Chronic Continue meds Qualifiers: Hypertension type: essential hypertension Qualified Code(s): I10 - Essential (primary) hypertension Internal Medicine - H&P: HPI Chief complaint: Chest pain Admitted From: Home Plans for Post Hospital Care: Home History of present illness: Mr. Brown is a 52 year old male with PMH of Schizoaffective disorder, bipolar, factitious disorder, CAD, HTN, Presented with complains of chest pain that occured at 258 pm while he was asleep, described it as pressure like on the jaw , 3-4/10 and radiated to the L arm and chest wall. He denies associated nausea/ vomiting/diphoresis/dizziness/palpitations. he states chest pain resolved spontaneously. There is no SOB Denies neurologic, abdominal and symptoms He has no SOB, and he has no leg swelling. He was recently worked up in 06/2017 for chest pain, negative MPI and ECHO His work up so far is unremarkable At time of review, he was sleeping deeply but rousable and denies any symptoms Past Med Surg Social Fam HX - Past Medical History Medical history: CHF, coronary artery disease, CVA, hypertension, migraine, myocardial infarction, pulmonary embolus, seizures, TIA, other Psychiatric history: anxiety, bipolar, depression, PTSD - Past Surgical History Surgical History: angioplasty/stent, cholecystectomy, hip replacement, orthopedic, other, other - Social History Smoking Status: Former smoker Smokeless Tobacco Status: No Alcohol use: occasionally Drug use: none - Family History Mother Adopted: Yes Father Adopted: Yes Living Status: Hx Family Cardiac Disorders: Yes Internal Medicine - H&P: Meds Benztropine Mesylate 2 mg PO BID 10/28/16 [History] Gabapentin [Neurontin] 900 mg PO TID 10/28/16 [History] [place] Carbonate 300 mg PO BID 10/28/16 [History] Losartan Potassium [Cozaar] 25 mg PO DAILY 10/28/16 [History] Venlafaxine HCl [Venlafaxine HCl ER] 225 mg PO HS 10/28/16 [History] Atorvastatin Calcium [Lipitor] 20 mg PO HS 05/09/17 [History] Oxybutynin [Ditropan] 10 mg PO TID 05/09/17 [History] Potassium Chloride [Klor-Con] 10 meq PO TID 05/09/17 [History] Carbidopa/Levodopa 25/100 [Sinemet 25/100] 1 each PO TID 06/23/17 [History] HYDROcodone/Acet 5/325 mg [[place] 5-325 mg] 1 tab PO Q6H PRN 06/23/17 [History] LORazepam [Ativan] 2 mg PO ONCE PRN 06/23/17 [History] Nitroglycerin [Nitrostat] 0.4 mg SL Q5M PRN 06/23/17 [History] Ranitidine HCl [Zantac] 150 mg PO HS 06/23/17 [History] Testosterone Cypionate [Testone Cik] 150 mg IM TH 06/23/17 [History] Aspirin Enteric Coated [Aspirin EC] 81 mg PO DAILY 08/01/17 [History] Clopidogrel [Plavix] 75 mg PO DAILY 08/01/17 [History] 3 Allergy/AdvReac Type Severity Reaction Status Date / Time cephalexin [From Keflex] Allergy Severe Anaphylaxis Verified 08/01/17 21:04 latex Allergy Mild Hives Verified 08/01/17 21:04 ceftriaxone [From Rocephin] Allergy Anaphylaxis Verified 08/01/17 21:04 clams Allergy Anaphylaxis Verified 08/01/17 21:04 tramadol Allergy Seizure Verified 08/01/17 21:04 All Systems PM: A 10-system review of systems was performed and is negative for pertinent findings except as documented above in the HPI. - Constitutional Constitutional: no chills, no fever(s), no night sweats - EENT Eyes: no change in vision, no discharge, no pain, no photophobia Ears: no ear discharge, no ear pain, no tinnitus Nose, mouth and throat: no dysphagia, no nasal discharge, no neck pain, no sore throat - Cardiovascular Cardiovascular ROS IM: as per HPI - Respiratory Respiratory: as per HPI - Gastrointestinal Gastrointestinal: no abdominal pain, no diarrhea, no hematemesis, no hematochezia, no melena, no nausea, no vomiting - Musculoskeletal Musculoskeletal ROS IM: no numbness, no tingling - Integumentary Integumentary IM: no rash, no unusual bruising - Neurological Neurological ROS: no confusion, no convulsions, no focal weakness, no numbness, no tingling, no tremor(s) - Hematologic/Lymphatic Hematologic/Lymphatic: no easy bruising - Constitutional Vitals: Temp Pulse Resp BP Pulse Ox 97.7 F 92 20 110/68 98 08/01/17 21:05 08/01/17 21:36 08/01/17 23:03 08/01/17 23:03 08/01/17 21:36 General appearance: Present: A&O X 3, pleasant, no acute distress - Head Head exam: Present: atraumatic, normocephalic - Eye Eye exam: Present: PERRL, conjuntiva pink, sclera anicteric Pupils: Present: PERRL - Neck Neck exam general surgery: Present: supple, trachea midline. Absent: lymphadenopathy - Respiratory Respiratory exam: Present: CTAB. Absent: accessory muscle use, rales, rhonchi, wheezes - Cardiovascular Cardiovascular exam: Present: RRR, +S1, +S2. Absent: diastolic murmur, gallop, rubs, systolic murmur - GI/Abdominal GI/Abdominal exam: Present: normal bowel sounds, soft, no peritoneal signs. Absent: distended, tenderness - Extremities Exam Extremities exam: Present: warm, radial pulses palpable and symmetrical. Absent : calf tenderness, cyanotic, pedal edema - Neurological Exam Neurological exam: Present: alert, CN II-XII intact, oriented X3, no focal deficits. Absent: pronater drift, facial droop, speech deficit - Skin Skin exam: Present: dry, intact Internal Med - H&P Results - Labs CBC & Chem 7: 08/01/17 21:24 08/01/17 21:24
[2017-08-02] MEDS ORDERED: Lithium Carbonate 300 MG CAPSULE PO SCH (09:00)
[2017-08-02] MEDS ORDERED: GABAPENTIN 900 MG PO SCH (09:00)
[2017-08-02] MEDS ORDERED: Aspirin Enteric Coated 81 MG Tablet PO SCH (09:00)
[2017-08-02] MEDS: GABAPENTIN PO SCH ×2 (09:38→14:33)
[2017-08-02] MEDS: Carbidopa/Levodopa 25/100 TABLET PO SCH ×2 (09:39→14:33)
[2017-08-02] MEDS: Nitroglycerin 0.4 MG TAB.SUBL SL PRN ×3 (10:06→10:18)
[2017-08-02 16:06] VITALS: BP 117/74
--- NOTE | 2017-08-02 17:14 | Discharge Summary ---
Date of Encounter: 08/02/17 Time of Encounter: 17:11 - Discharge Diagnosis (1) CAD (coronary artery disease) Priority: Primary Status: Chronic Comments: per hx. [facility] 06/2014 minimal CAD 20% mid LAD. Stress test 03/2015 negative for ischemia or infarct. Echo 06/16/17 EF preserved, normal wall motion. Stress test , MPI negative 06/2017. Cardiology was consulted at that time with no intervention. Patient has had multiple hospitalizations for chest pain and ACS rule out. Serial troponins negative, EKG without acute ST changes. No further cardiac work-up at this time. Strong suspicion for malingering/secondary gain as he has had multiple negative workups and appears to be manipulative at times. His complaints of symptoms were inconsistent throughout hospitalization. Can follow-up outpatient. Considered adding long-acting nitrate however patient declined. Continue home ASA, Plavix, statin Qualifiers: Coronary Disease-Associated Artery/Lesion type: [place] artery [place] vs. transplanted heart: [place] heart Associated angina: without angina Qualified Code(s): I25.10 - Atherosclerotic heart disease of [place] coronary artery without angina pectoris (2) Bipolar 1 disorder Priority: Primary Status: Chronic Comments: chronic, with hx fictitious disorder. Has had recurrent recurrent admissions for multiple complaints including chest pain and TIA/CVA with negative work ups. Continue psych meds. Strongly encouraged outpatient follow-up (3) Hypertension Priority: Primary Status: Chronic Comments: per hx. BP controlled. Cont home BP medications. Monitor BP and titrate PRN Qualifiers: Hypertension type: essential hypertension Qualified Code(s): I10 - Essential (primary) hypertension (4) DVT prophylaxis Priority: Secondary Status: Acute Comments: ambulation - Discharge Medications Home Medications: Benztropine Mesylate 2 mg PO BID 10/28/16 [History] Gabapentin [Neurontin] 900 mg PO TID 10/28/16 [History] [place] Carbonate 300 mg PO BID 10/28/16 [History] Losartan Potassium [Cozaar] 25 mg PO DAILY 10/28/16 [History] Venlafaxine HCl [Venlafaxine HCl ER] 225 mg PO HS 10/28/16 [History] Atorvastatin Calcium [Lipitor] 20 mg PO HS 05/09/17 [History] Oxybutynin [Ditropan] 10 mg PO TID 05/09/17 [History] Potassium Chloride [Klor-Con] 10 meq PO TID 05/09/17 [History] Carbidopa/Levodopa 25/100 [Sinemet 25/100] 1 each PO TID 06/23/17 [History] HYDROcodone/Acet 5/325 mg [[place] 5-325 mg] 1 tab PO Q6H PRN 06/23/17 [History] LORazepam [Ativan] 2 mg PO ONCE PRN 06/23/17 [History] Nitroglycerin [Nitrostat] 0.4 mg SL Q5M PRN 06/23/17 [History] Ranitidine HCl [Zantac] 150 mg PO HS 06/23/17 [History] Testosterone Cypionate [Testone Cik] 150 mg IM TH 06/23/17 [History] Aspirin Enteric Coated [Aspirin EC] 81 mg PO DAILY 08/01/17 [History] Clopidogrel [Plavix] 75 mg PO DAILY 08/01/17 [History] Allergies/Adverse Reactions: 3 Allergy/AdvReac Type Severity Reaction Status Date / Time cephalexin [From Keflex] Allergy Severe Anaphylaxis Verified 08/01/17 21:04 latex Allergy Mild Hives Verified 08/01/17 21:04 ceftriaxone [From Rocephin] Allergy Anaphylaxis Verified 08/01/17 21:04 clams Allergy Anaphylaxis Verified 08/01/17 21:04 tramadol Allergy Seizure Verified 08/01/17 21:04 Date of admission: 08/01/17 22:46 Primary care physician: Rickie Chavira MD Discharging clinician: Suzan Lemus Anticipated date of discharge: 08/02/17 - Patient Status Disposition: Home, Self-Care Condition: Good Functional capacity at discharge: independent ambulation Overall status at discharge: patient is back to baseline - Discharge Instructions Instructions: Coronary Artery Disease (DC), Chest Pain (DC), Mood Disorders (DC ), Chronic Hypertension (DC), Hyperlipidemia (DC) - Diet and Activity Activity: increase activity as tolerated Diet: advance to your usual diet Interval History: Seen and examined at bedside. Patient initially complained of acute onset shortness of breath says he was unable to speak in full sentences. He also reported substernal chest pain that radiated to the left. Patient reports he has history of pulmonary embolism, stroke and heart attack. Upon exam patient is calm and cooperative. Clearly able to speak in full sentences. No respiratory or cardiac distress apparent. Vital signs stable at time of exam. Initially he requested Dilaudid as morphine has not worked in the past. Offered Lidoderm patch for atypical/musculoskeletal chest pain which patient declined. Patient receptive to try nitroglycerin. At end of exam patient had no chest pain, no SOB. Hospital course: See assessment and plan for hospital course - Time Spent with Patient Total time spent providing and/or coordinating discharge services: - Constitutional Vitals: Temp Pulse Resp BP Pulse Ox 97.8 F 68 15 117/74 100 08/02/17 15:42 08/02/17 15:42 08/02/17 15:42 08/02/17 15:42 08/02/17 15:42 General appearance: Present: disheveled, A&O X 3, pleasant, no acute distress - Head Head exam: Present: atraumatic, normocephalic - Eye Eye exam: Present: PERRL, conjuntiva pink, sclera anicteric Pupils: Present: PERRL - Neck Neck exam general surgery: Present: supple, trachea midline. Absent: lymphadenopathy - Respiratory Respiratory exam: Present: CTAB. Absent: accessory muscle use, rales, rhonchi, wheezes - Cardiovascular Cardiovascular exam: Present: RRR, +S1, +S2. Absent: diastolic murmur, gallop, rubs, systolic murmur - GI/Abdominal GI/Abdominal exam: Present: normal bowel sounds, soft, no peritoneal signs. Absent: distended, tenderness - Extremities Exam Extremities exam: Present: warm, radial pulses palpable and symmetrical. Absent : calf tenderness, cyanotic, pedal edema - Neurological Exam Neurological exam: Present: CN II-XII intact, oriented X3, no focal deficits. Absent: pronater drift, facial droop, speech deficit - Psychiatric Psychiatric exam: Present: anxious - Expanded Psychiatric Exam Focused psych exam: Present: psychomotor agitation, restlessness - Skin Skin exam: Present: dry, intact
[2017-08-02] MEDS ORDERED: Venlafaxine XR (24 HR) 75 MG CAP.ER.24H PO SCH (21:00)
[2017-08-02] MEDS ORDERED: Famotidine 20 MG TABLET PO SCH (21:00)
--- NOTE | 2017-08-04 08:48 | Electrocardiograph Report ---
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
== END 2017-08-02 18:15 | disposition home or self-care (01) ==
LOC: EMEROO 21:02 → 3BNU 21:02
PROVIDERS: ADMIT Internal Medicine; ATTEND Registered Nurse

== ENCOUNTER 2018-05-21 10:22 | Observation (INO) ==
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
[2018-05-21 11:21] LABS: Troponin I < 0.03 ng/mL (< 0.04)
[2018-05-21 11:23] LABS: BUN/Creatinine Ratio 13 (6-26); Blood Urea Nitrogen 11 mg/dL (6-20); Calcium 9.7 mg/dL (8.6-10.3); Carbon Dioxide 26 mEq/L (23-29); Chloride 110 mEq/L (98-107); Glucose 124 mg/dL (70-105); Osmolality,Calculated 291 (280-300); Potassium 3.9 mEq/L (3.5-5.1); Sodium 140 mEq/L (136-145); eGFR For African Americans > 60 (> 60); eGFR For Non-African Americans > 60 (> 60)
--- NOTE | 2018-05-21 11:43 | Emergency Department Note ---
Disposition Clinical Impression: Syncope due to orthostatic hypotension, Hypoxia Disposition: Admitted As Inpatient Condition: Fair Referrals: Rickie Chavira MD [Primary Care Provider] - Forms: ED Satisfaction Letter Time of Disposition: 12:52 General Adult HPI - General Chief complaint: ED Syncope Stated complaint: "syncopal episode" Time Seen by Provider: 05/21/18 10:28 Source: patient Limitations: no limitations - History of Present Illness Pain Scale: 0 - Related Data Home Medications Medication Instructions Recorded Confirmed Benztropine Mesylate 2 mg PO BID 10/28/16 08/01/17 Gabapentin [Neurontin] 900 mg PO TID 10/28/16 08/01/17 [place] Carbonate 300 mg PO BID 10/28/16 08/01/17 Losartan Potassium [Cozaar] 25 mg PO DAILY 10/28/16 08/01/17 Venlafaxine HCl [Venlafaxine HCl 225 mg PO HS 10/28/16 08/01/17 ER] Atorvastatin Calcium [Lipitor] 20 mg PO HS 05/09/17 08/01/17 Carbidopa/Levodopa 25/100 [Sinemet 1 each PO TID 06/23/17 08/01/17 25/100] Nitroglycerin [Nitrostat] 0.4 mg SL Q5M PRN 06/23/17 08/01/17 Testosterone Cypionate [Testone 150 mg IM TH 06/23/17 08/01/17 Cik] Clopidogrel [Plavix] 75 mg PO DAILY 08/01/17 08/01/17 Acetaminophen [Tylenol] 500 mg PO Q6HR PRN 05/21/18 05/21/18 Aspirin 325 mg PO DAILY 05/21/18 05/21/18 EPINEPHrine [Epipen] 0.3 mg IM ONCE PRN 05/21/18 05/21/18 Gabapentin [Neurontin] 300 mg PO TID 05/21/18 05/21/18 [place] Carbon[place] [[place] 150 mg PO HS 05/21/18 05/21/18 Carbonate] Pantoprazole Sodium [Protonix] 40 mg PO DAILY 05/21/18 05/21/18 Potassium Chloride [K-Tab ER] 20 meq PO DAILY 05/21/18 05/21/18 hydrOXYzine pamoate [Hydroxyzine 25 mg PO TID 05/21/18 05/21/18 Pamoate] Allergies Allergy/AdvReac Type Severity Reaction Status Date / Time cephalexin [From Keflex] Allergy Severe Anaphylaxis Verified 05/21/18 12:29 latex Allergy Mild Hives Verified 05/21/18 12:29 ceftriaxone [From Rocephin] Allergy Anaphylaxis Verified 05/21/18 12:29 clams Allergy Anaphylaxis Verified 05/21/18 12:29 tramadol AdvReac Seizure Verified 05/21/18 12:29 Constitutional: Denies: fever Cardiovascular: Reports: syncope. Denies: chest pain, palpitations, dyspnea on exertion Respiratory: Denies: cough, dyspnea Gastrointestinal: Denies: abdominal pain, nausea, vomiting Musculoskeletal: Denies: back pain, neck pain Integumentary: Denies: rash, abrasion Neurological: Denies: headache Past Medical History - Past Medical History Medical history: Reports: CHF, coronary artery disease, CVA, DVT, hyperlipidemia , hypertension, migraine, myocardial infarction, pulmonary embolus, seizures, TIA, other Surgical history: Reports: angioplasty/stent, cholecystectomy, hip replacement ( Bilateral), orthopedic, other (Right meniscus, left ACL), other Psychiatric history: Reports: anxiety, bipolar, depression, PTSD - Social History Smoking Status: Former smoker Smokeless Tobacco Status: No Alcohol use: Reports: occasionally Drug use: Reports: none Physical Exam - General Limitations: no limitations General appearance: alert, in no apparent distress Course Vital Signs Temperature 98.1 F 05/21/18 10:23 Pulse Rate 102 05/21/18 10:23 Respiratory Rate 16 05/21/18 10:23 Blood Pressure 136/79 05/21/18 10:23 O2 Sat by Pulse Oximetry 97 05/21/18 10:23 Temperature 98.1 F 05/21/18 11:07 Pulse Rate 102 05/21/18 11:07 Respiratory Rate 16 05/21/18 11:07 Blood Pressure 136/79 05/21/18 11:07 O2 Sat by Pulse Oximetry 97 05/21/18 11:07 Oxygen Delivery Oxygen Delivery Room Air Medical Decision Making - Lab Data Result diagrams: 05/21/18 10:41 Lab Results 05/21/18 Range/Units 10:41 Sodium 140 (136-145) mEq/L Potassium 3.9 (3.5-5.1) mEq/L Chloride 110 H (98-107) mEq/L Carbon Dioxide 26 (23-29) mEq/L BUN 11 (6-20) mg/dL Creatinine 0.83 (0.70-1.30) mg/dL Est GFR ( Amer) > 60 (> 60) Est GFR (Non-Af Amer) > 60 (> 60) BUN/Creatinine Ratio 13 (6-26) Glucose 124 H (70-105) mg/dL Calculated Osmolality 291 (280-300) Calcium 9.7 (8.6-10.3) mg/dL Troponin I < 0.03 (< 0.04) ng/mL Attestation Statement - Attestation Attestation: I, Tim Mari DO, examined this patient [id number] and my medical decision-making was reviewed with Dr. Aguilar Wright, Resident Physician. I agree with the documented findings, disposition and treatment plan as described except to the extent set forth below. Please see my progress notes for details. 53-year-old male presents to the emergency room for evaluation of the syncopal event. Approximately 1 AM this morning the patient got up to go to the bathroom so. Completed will be resulted and went to stand up and passed out. Patient has done this in the past. He does have multiple medical issues. Denies any medication changes or complaints prior or after the events. He did not hit his head. He has no visible signs of trauma or injury. Patient is presenting to the emergency room approximately 9 hours after the incident. Patient is been seen and evaluated multiple times in this facility. Patient is describing what appears to be a vagal event here today. He denies any chest pain shortness of breath headache vision changes nausea vomiting or diarrhea prior to the events. He has not had any symptoms issues after the event. EKG labs including BMP and troponin will be collected. Patient did not hit his head shows no acute neurologic deficits. He has chronic issues on the left side that event evaluated and documented in multiple different times in previous treatment courses. Myself as well as resident physician have personally evaluated this patient in the past and does not show any acute changes or deficits at this point. He also agrees to this at this time. Unknown why the patient waited approximately another 6 hours to call the squad to come into the emergency room when he fell or woke up at approximately 4 AM this morning. Patient will have the workup completed here will be ambulated and be provided with a meal tray and then disposition will be determined. See detailed documentation the physical exam, medical intervention, medical decision -making and disposition the resident physician's note. No clinical concerning findings at least a noted on initial evaluation and the conversation we had with the patient for other etiology except for a vasovagal event after defecation. 1200 Patient ambulated on emergency room without any specific difficulty. He did not have any complaints of chest pain shortness of breath or near syncope. The patient was on a pulse ox and monitor while ambulating and he did drop down to 85%. He typically does not use any oxygen or have any complaint of respiratory related issues. Concern is noted secondary to the patient describing a syncopal event this morning with unknown etiology. Initially did seem to be vasovagal of the patient's oxygen dropping as well as other concerns at this point. Chest x-ray CT imaging of the head and CBC will be added on at this time for definitive evaluation patient will be admitted for symptomatically controlled treatment 1245 Patient was discussed with the hospitalist Dr. enriquez. Patient's presentation previous history multiple medical evaluations and the concern from today's evaluation were discussed in detail. She understands the context of the presentation recommendation for admission the patient will be admitted to the hospital for definitive management.
[2018-05-21 12:13] LABS: Basophils % 0.5 %; Eosinophils # 0.3 K/mcL (0.0-0.6); Eosinophils % 3.6 %; Hematocrit 40.6 % (37.5-50.1); Hemoglobin 14.3 g/dL (12.9-16.9); Immature Granulocytes % 0.2 % (0-4); Lymphocytes # 1.5 K/mcL (0.6-4.6); Lymphocytes % 17.8 %; Mean Corpuscular HGB Conc 35.2 g/dL (31.6-35.5); Mean Corpuscular Hemoglobin 32.4 pg (28.0-33.3); Mean Corpuscular Volume 92.1 fL (83.0-100.0); Mean Platelet Volume 9.5 fL (9.4-12.4); Monocytes # 0.4 K/mcL (0.0-1.3); Monocytes % 4.5 %; Neutrophils # 6.2 K/mcL (1.6-8.9); Platelet Count 179 K/mcL (140-400); Red Blood Count 4.41 M/mcL (4.19-5.50); Segmented Neutrophils % 73.4 %
[2018-05-21] MEDS ORDERED: Naloxone 0.4 MG/ML INJ IVP PRN (13:38)
[2018-05-21] MEDS ORDERED: Nitroglycerin 0.4 MG TAB.SUBL SL PRN (13:41)
--- NOTE | 2018-05-21 14:02 | Internal Med History&Physical ---
Date of Encounter: 05/21/18 Time of Encounter: 13:48 Internal Medicine - H&P: HPI Chief complaint: Syncopal episode Admitted From: Home Plans for Post Hospital Care: Home History of present illness: Mr. Brown is a 53 year old male with hx of hypertension, BPH, TIA, syncope, bipolar 1 and CAD.The patient indicated that he fell while ambulating in home this morning. The patient indicated that he doesn't remember how he fell but he woke up several hours later and the sun was up. He reports he has had near syncopal episodes many times. He reported having a work up last year with cardiology. In 06/2017, the patient had a echo done that showed a EF 55-60%. Normal LV chambers is mildly dilated in right and left atrium. Stress test was , negative for ischemia and infarct. Patient had some exercise intolerance at the time. The carotid duplex were bilaterally essentially normal. Will get orthostatics and a limited echocardiogram. Patient has hx of bipolar and seemed distracted during our interview. Patient also indicated that during one of his syncopal episode in the past 2 days he had some ?chest pain/heart palpitations. Will get cardiac serial enzymes 3. Troponin is less than 0.03 at this time. The patient apparently had a hypoxic episode while ambulating in the ED. Past Med Surg Social Fam HX - Past Medical History Medical history: CHF, coronary artery disease, CVA, DVT, hyperlipidemia, hypertension, migraine, myocardial infarction, pulmonary embolus, seizures, TIA , other Additional medical history: parkinsons Psychiatric history: anxiety, bipolar, depression, PTSD - Past Surgical History Surgical History: angioplasty/stent, cholecystectomy, hip replacement (Bilateral ), orthopedic, other (Right meniscus, left ACL), other Additional surgical history: LEFT KNEE W/SCREWS AND METAL PLATE, bilateral hip replacements, left acl tear, rt meniscus tear - Social History Smoking Status: Former smoker Smokeless Tobacco Status: No Alcohol use: occasionally Drug use: none - Family History Mother Adopted: Yes Father Adopted: Yes Living Status: Hx Family Cardiac Disorders: Yes Internal Medicine - H&P: Meds Benztropine Mesylate 2 mg PO BID 10/28/16 [History] Gabapentin [Neurontin] 600 mg PO TID 10/28/16 [History] [place] Carbonate 300 mg PO BID 10/28/16 [History] Losartan Potassium [Cozaar] 25 mg PO DAILY 10/28/16 [History] Venlafaxine HCl [Venlafaxine HCl ER] 225 mg PO HS 10/28/16 [History] Atorvastatin Calcium [Lipitor] 20 mg PO HS 05/09/17 [History] Carbidopa/Levodopa 25/100 [Sinemet 25/100] 1 tab PO TID 06/23/17 [History] Nitroglycerin [Nitrostat] 0.4 mg SL Q5M PRN 06/23/17 [History] Testosterone Cypionate [Testone Cik] 150 mg IM TH 06/23/17 [History] Clopidogrel [Plavix] 75 mg PO DAILY 08/01/17 [History] Acetaminophen [Tylenol] 500 mg PO Q6HR PRN 05/21/18 [History] Aspirin 325 mg PO DAILY 05/21/18 [History] EPINEPHrine [Epipen] 0.3 mg IM ONCE PRN 05/21/18 [History] Gabapentin [Neurontin] 300 mg PO TID 05/21/18 [History] [place] Carbonate [[place] Carbonate] 150 mg PO HS 05/21/18 [History] Pantoprazole Sodium [Protonix] 40 mg PO DAILY 05/21/18 [History] Potassium Chloride [K-Tab ER] 20 meq PO DAILY 05/21/18 [History] hydrOXYzine pamoate [Hydroxyzine Pamoate] 25 mg PO TID 05/21/18 [History] 3 Allergy/AdvReac Type Severity Reaction Status Date / Time cephalexin [From Keflex] Allergy Severe Anaphylaxis Verified 05/21/18 12:29 latex Allergy Mild Hives Verified 05/21/18 12:29 ceftriaxone [From Rocephin] Allergy Anaphylaxis Verified 05/21/18 12:29 clams Allergy Anaphylaxis Verified 05/21/18 12:29 tramadol AdvReac Seizure Verified 05/21/18 12:29 All Systems PM: A 10-system review of systems was performed and is negative for pertinent findings except as documented above in the HPI. - Constitutional Constitutional: no chills, no fever(s), no night sweats - EENT Eyes: no change in vision, no discharge, no pain, no photophobia Ears: no ear discharge, no ear pain, no tinnitus Nose, mouth and throat: no dysphagia, no nasal discharge, no neck pain, no sore throat - Cardiovascular Cardiovascular ROS IM: chest pain, palpitations, syncope, no diaphoresis, no dyspnea, no lightheadedness - Respiratory Respiratory: no cough, no dyspnea, no wheezing, no excessive phlegm production - Gastrointestinal Gastrointestinal: no abdominal pain, no diarrhea, no hematemesis, no hematochezia, no melena, no nausea, no vomiting - Musculoskeletal Musculoskeletal ROS IM: no numbness, no tingling - Integumentary Integumentary IM: no rash, no unusual bruising - Neurological Neurological ROS: no confusion, no convulsions, no focal weakness, no numbness, no tingling, no tremor(s) - Hematologic/Lymphatic Hematologic/Lymphatic: no easy bruising - Constitutional Vitals: Temp Pulse Resp BP Pulse Ox 98.1 F 83 16 114/75 96 05/21/18 11:07 05/21/18 12:55 05/21/18 12:55 05/21/18 12:55 05/21/18 12:55 General appearance: Present: A&O X 3, answers questions appropriately (However gets distratcted with a story while answering the questions. Poor focus.) - Head Head exam: Present: atraumatic, normocephalic - Eye Eye exam: Present: PERRL, conjuntiva pink, sclera anicteric Pupils: Present: PERRL - Neck Neck exam general surgery: Present: supple, trachea midline. Absent: lymphadenopathy - Respiratory Respiratory exam: Present: CTAB. Absent: accessory muscle use, rales, rhonchi, wheezes - Cardiovascular Cardiovascular exam: Present: RRR, +S1, +S2. Absent: diastolic murmur, gallop, rubs, systolic murmur - GI/Abdominal GI/Abdominal exam: Present: normal bowel sounds, soft, no peritoneal signs. Absent: distended, tenderness - Extremities Exam Extremities exam: Present: warm, radial pulses palpable and symmetrical. Absent : calf tenderness, cyanotic, pedal edema - Neurological Exam Neurological exam: Present: alert, CN II-XII intact, normal gait, oriented X3, no focal deficits, strengths equal and symetr throughout. Absent: pronater drift, facial droop, speech deficit - Skin Skin exam: Present: dry, intact Internal Med - H&P Results - Labs CBC & Chem 7: 05/21/18 10:41 05/21/18 10:41 - Assessment and plan (1) Syncope Current Visit: Yes Status: Acute Assessment and plan: Likely related to orthostatic hypotension Patient states fell to floor and was unconscious x 2 hours Orthostatics daily Cardiac monitoring Limited Echo in am Neuro checks q shift Monitor daily labs Qualifiers: Syncope type: unspecified Qualified Code(s): R55 - Syncope and collapse (2) Hypoxia Current Visit: Yes Status: Acute Assessment and plan: Oxygen to keep sats gt 92%. Cardiac monitoring (3) Chest pain Current Visit: No Status: Acute Assessment and plan: Serial cardiac troponins due to patient reporting chest pain in the past day with a dizzy episode. Cardiac monitoring Monitor labs Nitroglycerin prn Qualifiers: Chest pain type: unspecified Qualified Code(s): R07.9 - Chest pain, unspecified (4) Bipolar 1 disorder Current Visit: No Status: Chronic Assessment and plan: Unsure if controlled, patient continuing with a story, while also answering my interview questions. He avoided eye contact the entire time. Very busy. Continue home medications-continue lithium (5) HTN (hypertension) Current Visit: No Status: Chronic Assessment and plan: Bp is controlled, under 140/80. Continue home medications Qualifiers: Hypertension type: essential hypertension Qualified Code(s): I10 - Essential (primary) hypertension - Time Spent With Patient Total time spent is greater than 50% in coordination of care (as documented) at patient's floor/unit and/or counseling patient:
[2018-05-21] MEDS: hydrOXYzine pamoate 25 MG CAPSULE PO SCH ×2 (14:29→20:20)
[2018-05-21] MEDS: Lithium Carbonate 300 MG CAPSULE PO SCH (14:30)
[2018-05-21] MEDS: Carbidopa/Levodopa 25/100 TABLET PO SCH ×2 (14:30→20:20)
[2018-05-21] MEDS: Gabapentin 300 MG CAPSULE PO SCH ×2 (14:30→20:21)
[2018-05-21] MEDS ORDERED: Gabapentin 300 MG CAPSULE PO SCH (15:00)
[2018-05-21] MEDS ORDERED: NON-FORMULARY MEDICATION 1 EACH EACH (Gabapentin [Neurontin] 600 MG) PO SCH (15:00)
[2018-05-21] MEDS ORDERED: Venlafaxine XR (24 HR) 75 MG CAP.ER.24H PO SCH (21:00)
[2018-05-21] MEDS ORDERED: LITHIUM CARBONATE 150 MG PO SCH (21:00)
[2018-05-22 04:13] LABS: Basophils % 0.6 %; Eosinophils # 0.3 K/mcL (0.0-0.6); Eosinophils % 4.9 %; Hematocrit 36.7 % (37.5-50.1); Hemoglobin 12.8 g/dL (12.9-16.9); Immature Granulocytes % 0.3 % (0-4); Immature Platelets 1.4 % (1.1-6.1); Lymphocytes # 1.6 K/mcL (0.6-4.6); Lymphocytes % 23.1 %; Mean Corpuscular HGB Conc 34.9 g/dL (31.6-35.5); Mean Corpuscular Hemoglobin 31.8 pg (28.0-33.3); Mean Corpuscular Volume 91.1 fL (83.0-100.0); Mean Platelet Volume 9.1 fL (9.4-12.4); Monocytes # 0.5 K/mcL (0.0-1.3); Monocytes % 6.4 %; Neutrophils # 4.5 K/mcL (1.6-8.9); Platelet Count 177 K/mcL (140-400); Red Blood Count 4.03 M/mcL (4.19-5.50); Segmented Neutrophils % 64.7 %
[2018-05-22 04:23] LABS: BUN/Creatinine Ratio 14 (6-26); Blood Urea Nitrogen 10 mg/dL (6-20); Calcium 9.3 mg/dL (8.6-10.3); Carbon Dioxide 27 mEq/L (23-29); Chloride 109 mEq/L (98-107); Chol/HDL Ratio 2.2 (0-4.9); Cholesterol 83 mg/dL (< 200); Glucose 129 mg/dL (70-105); HDL Cholesterol 37 mg/dL (40-59); LDL Cholesterol,Calculated 34 mg/dL (0-99); Osmolality,Calculated 287 (280-300); Potassium 3.7 mEq/L (3.5-5.1); Sodium 138 mEq/L (136-145); Triglycerides 61 mg/dL (< 150); eGFR For African Americans > 60 (> 60); eGFR For Non-African Americans > 60 (> 60)
[2018-05-22] MEDS: Gabapentin 300 MG CAPSULE PO SCH ×2 (08:28→14:00)
[2018-05-22] MEDS: Carbidopa/Levodopa 25/100 TABLET PO SCH ×2 (08:29→14:00)
[2018-05-22] MEDS: hydrOXYzine pamoate 25 MG CAPSULE PO SCH ×2 (08:29→14:01)
[2018-05-22] MEDS: Lithium Carbonate 300 MG CAPSULE PO SCH ×2 (08:29→14:00)
[2018-05-22] MEDS ORDERED: Aspirin 325 MG TABLET PO SCH (09:00)
--- NOTE | 2018-05-22 09:54 | Internal Med Progress Note ---
Date of Encounter: 05/22/18 Time of Encounter: 09:54 - Time Spent With Patient Total time spent is greater than 50% in coordination of care (as documented) at patient's floor/unit and/or counseling patient: - Constitutional Vitals: Temp Pulse Resp BP Pulse Ox 97.6 F 73 18 121/70 97 05/22/18 07:45 05/22/18 07:45 05/22/18 07:45 05/22/18 07:45 05/22/18 07:45 General appearance: Present: A&O X 3, answers questions appropriately (However gets distratcted with a story while answering the questions. Poor focus.) Internal Medicine: Result - Labs CBC & Chem 7: 05/22/18 03:33 05/22/18 03:33 Labs: Short CBC 05/22/18 Range/Units 03:33 WBC 7.0 (4.3-11.1) K/mcL Hgb 12.8 L D (12.9-16.9) g/dL Hct 36.7 L (37.5-50.1) % Plt Count 177 (140-400) K/mcL Neutrophils # 4.5 (1.6-8.9) K/mcL BMP 05/22/18 03:33 Sodium 138 Potassium 3.7 Chloride 109 H Carbon Dioxide 27 BUN 10 Creatinine 0.69 L Glucose 129 H Calcium 9.3 Cardiac Enzymes 05/21/18 05/21/18 05/22/18 Range/Units 15:48 21:23 03:33 Troponin I < 0.03 < 0.03 < 0.03 (< 0.04) ng/mL - VTE Documentation of Mechanical Device: Intermittent pneumatic compression device Consult Discharge Plan - Plan Referrals: Rickie Chavira MD [Primary Care Provider] -
--- NOTE | 2018-05-22 13:10 | Discharge Summary ---
- NOTES TO OUTPATIENT PROVIDER Notes to Outpatient Provider: Monitor BP - losartan decreased to 12.5mg daily Orders not resulted at time of discharge: Pending orders 05/22/18 13:05 EKG [ECG 12 lead ECG] [ECG] Routine Date of Encounter: 05/22/18 Time of Encounter: 13:10 - Discharge Diagnosis (1) Hypoxia Priority: Secondary Status: Acute (2) Syncope Priority: Primary Status: Acute Qualifiers: Syncope type: unspecified Qualified Code(s): R55 - Syncope and collapse (3) Chest pain Priority: Secondary Status: Acute Qualifiers: Chest pain type: unspecified Qualified Code(s): R07.9 - Chest pain, unspecified (4) Bipolar 1 disorder Priority: Secondary Status: Chronic (5) HTN (hypertension) Priority: Secondary Status: Chronic Qualifiers: Hypertension type: essential hypertension Qualified Code(s): I10 - Essential (primary) hypertension Hospital course: Mr. Brown is a 53 year old male past [place]ck[place] history of hypertension BPH TIA syncope bipolar 1 and CAD. According the patient he fell while ambulating in his home approximately 1 to 2:00 in the morning. Does not recall the incident and he woke up several hours later. He reports that he has had near syncopal episodes several times. CT of head with no acute intracranial abnormalities. Lab work was unremarkable Patient did have an echo completed 06/2017 which showed EF of 55-60% -he underwent a stress test 06/2017 which was negative for any ischemia or infarct he also had a carotid duplex at that time which were normal bilaterally. In December 2017. Event monitor was completed as outpatient-which did demonstrate sinus rhythm with no ectopy. Review of the records [facility] cardiology note dated 05/05/2018 states patient underwent a left heart catheter in 2013 which was unremarkable with minimal nonobstructive coronary artery disease in the [place]. According to ER records patient did ambulate and had a oxygen saturation of 85%. During this admission patient sats have been 95-99%. Patient ambulating in hallway for 20 minutes sats did not drop below 95%. Patient has not had any chest pain or shortness of breath during this admission. Orthostatics were completed systolic blood pressure was in the 90s 1 patient was lying down. I did decrease patient's losartan to 12.5 daily. Suspect orthostatic Advised patient to follow-up with primary care provider as outpatient since this provider knows him best and can adjust medications accordingly. Patient verbalized understanding. Review of telemetry overnight shows sinus rhythm with heart rate averaged around 70. I reviewed discharge instructions with the patient, I did give him prescription for 12.5 losartan Discharge discussed with: patient - Time Spent with Patient Total time spent providing and/or coordinating discharge services: - Discharge Medications Prescriptions: Losartan [Cozaar] 12.5 mg PO DAILY #30 tablet Home Medications: Benztropine Mesylate 2 mg PO BID 10/28/16 [History] Gabapentin [Neurontin] 600 mg PO TID 10/28/16 [History] [place] Carbonate 300 mg PO BID 10/28/16 [History] Venlafaxine HCl [Venlafaxine HCl ER] 225 mg PO HS 10/28/16 [History] Atorvastatin Calcium [Lipitor] 20 mg PO HS 05/09/17 [History] Carbidopa/Levodopa 25/100 [Sinemet 25/100] 1 tab PO TID 06/23/17 [History] Nitroglycerin [Nitrostat] 0.4 mg SL Q5M PRN 06/23/17 [History] Testosterone Cypionate [Testone Cik] 150 mg IM TH 06/23/17 [History] Clopidogrel [Plavix] 75 mg PO DAILY 08/01/17 [History] Acetaminophen [Tylenol] 500 mg PO Q6HR PRN 05/21/18 [History] Aspirin 325 mg PO DAILY 05/21/18 [History] EPINEPHrine [Epipen] 0.3 mg IM ONCE PRN 05/21/18 [History] Gabapentin [Neurontin] 300 mg PO TID 05/21/18 [History] [place] Carbonate 150 mg PO HS 05/21/18 [History] Pantoprazole Sodium [Protonix] 40 mg PO DAILY 05/21/18 [History] Potassium Chloride [K-Tab ER] 20 meq PO DAILY 05/21/18 [History] hydrOXYzine pamoate [Hydroxyzine Pamoate] 25 mg PO TID 05/21/18 [History] Losartan [Cozaar] 12.5 mg PO DAILY #30 tablet 05/22/18 [Rx] Allergies/Adverse Reactions: 3 Allergy/AdvReac Type Severity Reaction Status Date / Time cephalexin [From Keflex] Allergy Severe Anaphylaxis Verified 05/21/18 12:29 latex Allergy Mild Hives Verified 05/21/18 12:29 ceftriaxone [From Rocephin] Allergy Anaphylaxis Verified 05/21/18 12:29 clams Allergy Anaphylaxis Verified 05/21/18 12:29 tramadol AdvReac Seizure Verified 05/21/18 12:29 Date of admission: 05/21/18 12:54 Primary care physician: Rickie Chavira MD Discharging clinician: Ashley Smith Anticipated date of discharge: 05/22/18 - Constitutional Vitals: Temp Pulse Resp BP Pulse Ox 98.1 F 87 16 119/70 97 05/22/18 12:15 05/22/18 12:15 05/22/18 12:15 05/22/18 12:15 05/22/18 12:15 General appearance: Present: A&O X 3, answers questions appropriately (However gets distratcted with a story while answering the questions. Poor focus.) - Head Head exam: Present: atraumatic, normocephalic - Eye Eye exam: Present: PERRL, conjuntiva pink, sclera anicteric Pupils: Present: PERRL - Neck Neck exam general surgery: Present: supple, trachea midline. Absent: lymphadenopathy - Respiratory Respiratory exam: Present: CTAB. Absent: accessory muscle use, rales, rhonchi, wheezes - Cardiovascular Cardiovascular exam: Present: RRR, +S1, +S2. Absent: diastolic murmur, gallop, rubs, systolic murmur - GI/Abdominal GI/Abdominal exam: Present: normal bowel sounds, soft, no peritoneal signs. Absent: distended, tenderness - Extremities Exam Extremities exam: Present: warm, radial pulses palpable and symmetrical. Absent : calf tenderness, cyanotic, pedal edema - Neurological Exam Neurological exam: Present: CN II-XII intact, oriented X3, no focal deficits. Absent: pronater drift, facial droop, speech deficit - Skin Skin exam: Present: dry, intact - Patient Status Disposition: Home, Self-Care Condition: Fair Functional capacity at discharge: independent ambulation Overall status at discharge: patient is back to baseline - Discharge Instructions Follow Up With: Rickie Chavira MD [Primary Care Provider] - 05/27/18 8:45 am - Diet and Activity Activity: increase activity as tolerated Diet: advance to your usual diet - VTE Documentation of Mechanical Device: Intermittent pneumatic compression device
[2018-05-22 15:36] VITALS: BP 115/60
--- NOTE | 2018-05-22 15:53 | Physician Discharge Referral ---
Home Health/Hosp Referral Info Transfer to: Home Health Attending Provider: Ashley Smith Provider in Charge Post Discharge: PCP - Diagnosis (1) Hypoxia Priority: Secondary Status: Acute (2) Syncope Priority: Primary Status: Acute (3) Chest pain Priority: Secondary Status: Acute (4) Bipolar 1 disorder Priority: Secondary Status: Chronic (5) HTN (hypertension) Priority: Secondary Status: Chronic - Respiratory Orders Smoking Cessation: Smoking cessation has been advised. For more information, call the [place] Tobacco Quit Line at 0-155-ZHKX-NOW. - Services Needed Following services are medically necessary services: Nursing - Transfer Medications Prescriptions: Losartan [Cozaar] 12.5 mg PO DAILY #30 tablet Home Medications: Benztropine Mesylate 2 mg PO BID 10/28/16 [History] Gabapentin [Neurontin] 600 mg PO TID 10/28/16 [History] [place] Carbonate 300 mg PO BID 10/28/16 [History] Venlafaxine HCl [Venlafaxine HCl ER] 225 mg PO HS 10/28/16 [History] Atorvastatin Calcium [Lipitor] 20 mg PO HS 05/09/17 [History] Carbidopa/Levodopa 25/100 [Sinemet 25/100] 1 tab PO TID 06/23/17 [History] Nitroglycerin [Nitrostat] 0.4 mg SL Q5M PRN 06/23/17 [History] Testosterone Cypionate [Testone Cik] 150 mg IM TH 06/23/17 [History] Clopidogrel [Plavix] 75 mg PO DAILY 08/01/17 [History] Acetaminophen [Tylenol] 500 mg PO Q6HR PRN 05/21/18 [History] Aspirin 325 mg PO DAILY 05/21/18 [History] EPINEPHrine [Epipen] 0.3 mg IM ONCE PRN 05/21/18 [History] Gabapentin [Neurontin] 300 mg PO TID 05/21/18 [History] [place] Carbonate 150 mg PO HS 05/21/18 [History] Pantoprazole Sodium [Protonix] 40 mg PO DAILY 05/21/18 [History] Potassium Chloride [K-Tab ER] 20 meq PO DAILY 05/21/18 [History] hydrOXYzine pamoate [Hydroxyzine Pamoate] 25 mg PO TID 05/21/18 [History] Losartan [Cozaar] 12.5 mg PO DAILY #30 tablet 05/22/18 [Rx] Allergies/Adverse Reactions: 3 Allergy/AdvReac Type Severity Reaction Status Date / Time cephalexin [From Keflex] Allergy Severe Anaphylaxis Verified 05/21/18 12:29 latex Allergy Mild Hives Verified 05/21/18 12:29 ceftriaxone [From Rocephin] Allergy Anaphylaxis Verified 05/21/18 12:29 clams Allergy Anaphylaxis Verified 05/21/18 12:29 tramadol AdvReac Seizure Verified 05/21/18 12:29 Certification: Further, I certify that my clinical findings support that this patient is homebound (i.e. absences from home require considerable and taxing effort and are for medical reasons or sikhism services or infrequently or short duration when for other reasons) because: Homebound Reason: Severity of cardiac or pulmonary status limits activity tolerance Attestation: My signature below is to certify that this patient is under my care and that I, or nurse practitioner, or a physician's bilingual administrative assistant working with me, has a face-to -face encounter with this patient.
--- NOTE | 2018-05-22 17:51 | Electrocardiograph Report ---
[address] [address] Test Date: 2018-05-21 Pat Name: Tam Brown Department: 104 Room: 3B Gender: M Digital Specialist: AM : 1965 Requested By: Aguilar Wright Order Number: [id number] Reading MD: Duran Castillo Measurements Intervals [place] Rate: 97 P: -9 ID: [id number] QRS: 56 QRSD: 100 T: 31 QT: 363 QTc: 418 Interpretive Statements SINUS RHYTHM Electronically Signed On 05-22-2018 17:49:37 EDT by Duran Castillo
== END 2018-05-22 17:20 | disposition home or self-care (01) ==
LOC: EMEROO 10:22 → 3BNU 10:22
PROVIDERS: ADMIT Internal Medicine; ATTEND Internal Medicine

== ENCOUNTER 2018-06-13 12:31 | Observation (INO) ==
[2018-06-13 13:04] LABS: Basophils % 0.4 %; Eosinophils # 0.3 K/mcL (0.0-0.6); Eosinophils % 4.2 %; Hematocrit 37.3 % (37.5-50.1); Hemoglobin 13.1 g/dL (12.9-16.9); Immature Granulocytes % 0.3 % (0-4); Lymphocytes # 1.2 K/mcL (0.6-4.6); Lymphocytes % 17.1 %; Mean Corpuscular HGB Conc 35.1 g/dL (31.6-35.5); Mean Corpuscular Hemoglobin 32.3 pg (28.0-33.3); Mean Corpuscular Volume 92.1 fL (83.0-100.0); Mean Platelet Volume 9.3 fL (9.4-12.4); Monocytes # 0.4 K/mcL (0.0-1.3); Monocytes % 5.2 %; Neutrophils # 5.1 K/mcL (1.6-8.9); Platelet Count 195 K/mcL (140-400); Red Blood Count 4.05 M/mcL (4.19-5.50); Red Cell Distribution Width 12.5 % (11.5-14.5); Segmented Neutrophils % 72.8 %
[2018-06-13 13:14] LABS: Prothrombin Time 11.4 Seconds (9.4-12.1)
[2018-06-13 13:17] LABS: Activated Partial Thrombo Time 33.2 Seconds (26.0-36.0)
[2018-06-13 13:34] LABS: BUN/Creatinine Ratio 23 (6-26); Blood Urea Nitrogen 17 mg/dL (6-20); Calcium 9.2 mg/dL (8.6-10.3); Carbon Dioxide 25 mEq/L (23-29); Chloride 107 mEq/L (98-107); Glucose 120 mg/dL (70-105); Osmolality,Calculated 291 (280-300); Potassium 3.7 mEq/L (3.5-5.1); Sodium 139 mEq/L (136-145); eGFR For Non-African Americans > 60 (> 60)
[2018-06-13 13:35] LABS: Troponin I < 0.03 ng/mL (< 0.04)
[2018-06-13] MEDS ORDERED: Isovue-370 500 ML INFUS..BTL IV ONE (13:36)
--- NOTE | 2018-06-13 16:02 | Emergency Department Note ---
Disposition Clinical Impression: Paresthesia Stroke Qualifiers: CVA mechanism: unspecified Qualified Code(s): I63.9 - Cerebral infarction, unspecified Disposition: Admitted As Inpatient Condition: Good Neuro HPI - General Chief Complaint: ED Neuro Symptoms/Deficit Stated Complaint: weakness Time Seen by Provider: 06/13/18 12:49 Source: EMS Limitations: no limitations Nursing Notes Reviewed: Yes Vital Signs Reviewed: Yes - History of Present Illness HPI Narrative: Patient presents today for evaluation of left-sided numbness and decreased sensation. Patient is well known to me as I have treated him multiple times in the past. Patient has received TPA 3 times in the past for similar symptoms. I did give him TPA one of these times. During the course of the patient's interview he is unable to give a clear history of when the symptoms started. The story has changed slightly several times. Initially patient states that he woke up feeling generally weak and off. Had serial as well as tried to do some paperwork tasks and noticed the left hand not working as well as usual. States this was approximately at 10 AM. The patient later states that he was just feeling generally weak this morning with onset of symptoms at 1 PM. The symptoms are consistent with symptoms he has had previously with stroke. He does have a history of psychiatric disease and is treated with lithium. States he was recently told to take his medication in the morning instead of at night. - Related Data Home Medications: Home Medications Medication Instructions Recorded Confirmed Benztropine Mesylate 2 mg PO BID 10/28/16 06/13/18 Gabapentin [Neurontin] 600 mg PO TID 10/28/16 06/13/18 [place] Carbonate 300 mg PO BID 10/28/16 06/13/18 Venlafaxine HCl [Venlafaxine HCl 225 mg PO HS 10/28/16 06/13/18 ER] Atorvastatin Calcium [Lipitor] 20 mg PO HS 05/09/17 06/13/18 Carbidopa/Levodopa 25/100 [Sinemet 1 tab PO TID 06/23/17 06/13/18 25/100] Nitroglycerin [Nitrostat] 0.4 mg SL Q5M PRN 06/23/17 06/13/18 Testosterone Cypionate [Testone 150 mg IM TH 06/23/17 06/13/18 Cik] Clopidogrel [Plavix] 75 mg PO DAILY 08/01/17 06/13/18 Acetaminophen [Tylenol] 500 mg PO Q6HR PRN 05/21/18 06/13/18 Aspirin 325 mg PO DAILY 05/21/18 06/13/18 EPINEPHrine [Epipen] 0.3 mg IM ONCE PRN 05/21/18 06/13/18 Gabapentin [Neurontin] 300 mg PO TID 05/21/18 06/13/18 [place] Carbonate 150 mg PO HS 05/21/18 06/13/18 Pantoprazole Sodium [Protonix] 40 mg PO DAILY 05/21/18 06/13/18 Potassium Chloride [K-Tab ER] 20 meq PO DAILY 05/21/18 06/13/18 hydrOXYzine pamoate [Hydroxyzine 25 mg PO TID 05/21/18 06/13/18 Pamoate] raNITIdine HCl [Ranitidine HCl] 300 mg PO DAILY 06/13/18 06/13/18 Previous Rx's Medication Instructions Recorded Losartan [Cozaar] 12.5 mg PO DAILY #30 tablet 05/22/18 Allergies/Adverse Reactions: Allergies Allergy/AdvReac Type Severity Reaction Status Date / Time cephalexin [From Keflex] Allergy Severe Anaphylaxis Verified 05/21/18 12:29 latex Allergy Mild Hives Verified 05/21/18 12:29 ceftriaxone [From Rocephin] Allergy Anaphylaxis Verified 05/21/18 12:29 clams Allergy Anaphylaxis Verified 05/21/18 12:29 tramadol AdvReac Seizure Verified 05/21/18 12:29 Review of Systems: CONSTITUTIONAL: No weight loss, fever, chills, weakness or fatigue. HEENT: Eyes: No visual changes. Ears, Nose, Throat: No hearing loss, difficulty talking or unable to swallow. SKIN: No rash or itching. CARDIOVASCULAR: No chest pain, chest pressure or chest discomfort. No palpitations or edema. RESPIRATORY: No shortness of breath, cough or sputum. GASTROINTESTINAL: No anorexia, nausea, vomiting or diarrhea. No abdominal pain or blood. GENITOURINARY: No burning on urination or hematuria. NEUROLOGICAL: Decreased sensation to the left side of the face arm and leg. MUSCULOSKELETAL: No muscle pain, back pain, joint pain or stiffness. Past Medical History - Past Medical History Medical history: Reports: CHF, coronary artery disease, CVA, DVT, hyperlipidemia , hypertension, migraine, myocardial infarction, pulmonary embolus, seizures, TIA, other Surgical history: Reports: angioplasty/stent, cholecystectomy, hip replacement ( Bilateral), orthopedic, other (Right meniscus, left ACL), other Psychiatric history: Reports: anxiety, bipolar, depression, PTSD - Social History Smoking Status: Former smoker Smokeless Tobacco Status: No Alcohol use: Reports: rarely Drug use: Reports: none Physical Exam General: Well appearing, nontoxic, no acute distress Head: Normocephalic Atraumatic Eyes: PERRL, EOMI ENT: Airway patent, no stridor Neck: supple, no meningismus Chest: Lungs clear to auscultation bilateral Cardiac: Regular rate and rhythm, no murmurs, rubs or gallops Abdomen: soft, nontender, nondistended; no guarding, rebound, or tenderness to percussion Musculoskeletal: Calves symmetric, nontender, no palpable cord Skin: No rash, normal skin tone Neuro: Alert and Oriented to person, place, and time; - General Limitations: no limitations General appearance: alert, in no apparent distress - Head Head exam: atraumatic, normocephalic - Expanded Neurological Exam Patient oriented to: Present: person, place, time Speech: Present: fluid speech Cranial nerves: EOM function (II, III, IV, ): Normal, facial sensation (V): Abnormal Left, facial palsy (VII): Normal, gag reflex (IX): Normal, spinal accessory function (XI): Normal, tongue deviation (XII): Normal Cerebellar function: finger to nose: Abnormal Right, heel to [place]: Normal Cerebellar function: normal gait Motor strength - LUE: 4/5 Motor strength - RUE: 5/5 Motor strength - LLE: 4/5 Motor strength - RLE: 5/5 Sensory exam upper extremity: light touch: Abnormal Left Sensory exam lower extremity: light touch: Abnormal Left Coma Scale Eye Opening: Spontaneous Coma Scale Motor Response: Obeys Commands Coma Scale Verbal Response: Oriented Coma Scale Total: 15 Course - Reevaluation(s) Reevaluation #1: Stroke alert with [facility] was performed and the decision was made to not give TPA. Reevaluation #2: CTA head and neck without acute abnormality. The patient states that he would like to stay at [place] rather than be transferred to [facility]. Patient's left arm and leg decreased sensation have remained stable but have not yet started to improve. - Consultations Consultation #1: Discussed with [facility] neurology via tele-stroke. Patient's symptoms are similar but slightly worse in severity compared to previous residual deficits along with unclear story on time of onset disqualifying him from TPA. Patient should undergo CTA head and neck and if amenable to intervention, the patient be transferred to [facility]. Consultation #2: Discussed with hospitalist, Dr. Horan. Patient accepted for admission. Vital Signs Temperature 98.0 F 06/13/18 12:35 Pulse Rate 84 06/13/18 12:35 Respiratory Rate 18 06/13/18 12:35 Blood Pressure 123/82 06/13/18 12:35 O2 Sat by Pulse Oximetry 98 06/13/18 12:35 Temperature 98.0 F 06/13/18 12:35 Pulse Rate 89 06/13/18 13:17 Respiratory Rate 18 06/13/18 13:17 Blood Pressure 110/64 06/13/18 13:17 O2 Sat by Pulse Oximetry 98 06/13/18 13:17 Oxygen Delivery Oxygen Delivery Room Air Neuro Symptoms/Deficit - Lab Data Result diagrams: 06/13/18 12:52 06/13/18 12:52 Lab Results 06/13/18 06/13/18 06/13/18 Range/Units 12:52 12:52 12:52 WBC 7.1 (4.3-11.1) K/mcL RBC 4.05 L (4.19-5.50) M/mcL Hgb 13.1 (12.9-16.9) g/dL Hct 37.3 L (37.5-50.1) % MCV 92.1 (83.0-100.0) fL MCH 32.3 (28.0-33.3) pg MCHC 35.1 (31.6-35.5) g/dL RDW 12.5 (11.5-14.5) % Plt Count 195 (140-400) K/mcL MPV 9.3 L (9.4-12.4) fL Immature Gran % 0.3 (0-4) % Seg Neutrophils % 72.8 % Lymphocytes % 17.1 % Monocytes % 5.2 % Eosinophils % 4.2 % Basophils % 0.4 % Neutrophils # 5.1 (1.6-8.9) K/mcL Lymphocytes # 1.2 (0.6-4.6) K/mcL Monocytes # 0.4 (0.0-1.3) K/mcL Eosinophils # 0.3 (0.0-0.6) K/mcL Basophils # 0.0 (0.0-0.2) K/mcL PT 11.4 (9.4-12.1) Seconds INR 1.0 APTT 33.2 (26.0-36.0) Seconds Sodium 139 (136-145) mEq/L Potassium 3.7 (3.5-5.1) mEq/L Chloride 107 (98-107) mEq/L Carbon Dioxide 25 (23-29) mEq/L BUN 17 (6-20) mg/dL Creatinine 0.74 (0.70-1.30) mg/dL Est GFR ( Amer) > 60 (> 60) Est GFR (Non-Af Amer) > 60 (> 60) BUN/Creatinine Ratio 23 (6-26) Glucose 120 H (70-105) mg/dL Calculated Osmolality 291 (280-300) Calcium 9.2 (8.6-10.3) mg/dL Troponin I < 0.03 (< 0.04) ng/mL [place] (0.6-1.2) mEq/L 06/13/18 Range/Units 12:52 WBC (4.3-11.1) K/mcL RBC (4.19-5.50) M/mcL Hgb (12.9-16.9) g/dL Hct (37.5-50.1) % MCV (83.0-100.0) fL MCH (28.0-33.3) pg MCHC (31.6-35.5) g/dL RDW (11.5-14.5) % Plt Count (140-400) K/mcL MPV (9.4-12.4) fL Immature Gran % (0-4) % Seg Neutrophils % % Lymphocytes % % Monocytes % % Eosinophils % % Basophils % % Neutrophils # (1.6-8.9) K/mcL Lymphocytes # (0.6-4.6) K/mcL Monocytes # (0.0-1.3) K/mcL Eosinophils # (0.0-0.6) K/mcL Basophils # (0.0-0.2) K/mcL PT (9.4-12.1) Seconds INR APTT (26.0-36.0) Seconds Sodium (136-145) mEq/L Potassium (3.5-5.1) mEq/L Chloride (98-107) mEq/L Carbon Dioxide (23-29) mEq/L BUN (6-20) mg/dL Creatinine (0.70-1.30) mg/dL Est GFR ( Amer) (> 60) Est GFR (Non-Af Amer) (> 60) BUN/Creatinine Ratio (6-26) Glucose (70-105) mg/dL Calculated Osmolality (280-300) Calcium (8.6-10.3) mg/dL Troponin I (< 0.04) ng/mL [place] 0.2 L (0.6-1.2) mEq/L NIH Stroke Scale - Level of Consciousness LOC: Alert - LOC Questions LOC Questions: Answers both correctly - LOC Commands LOC Commands: Performs both correctly - Best Gaze Best Gaze: Normal - Visual Visual: No visual loss - Facial Palsy Facial Palsy: Normal - Motor Arms Motor Arm-Left: Drift, does NOT hit bed Motor Arm-Right: No drift for 10 seconds - Motor Legs Motor Leg-Left: Drift, does NOT hit bed (All deficits are old; left sided paresthesias are worse than previously from 04/19 to 01/17) Motor Leg-Right: No drift for 5 seconds - Limb Ataxia Limb Ataxia: Present in ONE limb - Sensory Sensory: Mild to moderate loss, "not as sharp" - Best Language Best Language: No aphasia - Dysarthria Dysarthria: Normal - Extinction and Inattention Extinction and Inattention: Normal - NIHSS Total Score NIHSS Total Score: 4 TPA Checklist - LKW: 3-4.5 hrs Add. Warnings/Precautions Patient/family understanding: The patient/family members have been counseled and understood the risk, benefit , and alternatives of treatment.
--- NOTE | 2018-06-13 18:03 | Internal Med History&Physical ---
Date of Encounter: 06/13/18 Time of Encounter: 11:00 Internal Medicine - H&P: HPI Chief complaint: Left sided altered sensation Admitted From: Home Plans for Post Hospital Care: Home History of present illness: Patient is a 53-year-old male with past medical history of CVA with left-sided weakness, DVT, hypertension, hyperlipidemia, these, seizures and psychiatric disorder who presents to the ER on 06/13/18 due to concerns of left sided altered sensation. Patient is a poor historian but does state that he woke up this morning with concerns of altered sensation that is greater than baseline and also left-sided weakness that is greater than baseline. In the ER, patient was evaluated by [facility] telemetry stroke/with recommendations not to give TPA. CT angiogram of the head and neck was done which did not show any significant stenosis of the head or neck arteries. Head CT was also done which showed no acute intracranial findings. Patient will be admitted to medical surgical floor for CVA/TIA rule out. Past Med Surg Social Fam HX - Past Medical History Medical history: CHF, coronary artery disease, CVA, DVT, hyperlipidemia, hypertension, migraine, myocardial infarction, pulmonary embolus, seizures, TIA , other Additional medical history: parkinsons Psychiatric history: anxiety, bipolar, depression, PTSD - Past Surgical History Surgical History: angioplasty/stent, cholecystectomy, hip replacement, orthopedic, other, other Additional surgical history: LEFT KNEE W/SCREWS AND METAL PLATE, bilateral hip replacements, left acl tear, rt meniscus tear - Social History Smoking Status: Former smoker Smokeless Tobacco Status: No Alcohol use: occasionally Drug use: none - Family History Mother Adopted: Yes Father Adopted: Yes Living Status: Hx Family Cardiac Disorders: Yes Internal Medicine - H&P: Meds Benztropine Mesylate 2 mg PO BID 10/28/16 [History] Gabapentin [Neurontin] 600 mg PO TID 10/28/16 [History] [place] Carbonate 300 mg PO BID 10/28/16 [History] Venlafaxine HCl [Venlafaxine HCl ER] 225 mg PO HS 10/28/16 [History] Atorvastatin Calcium [Lipitor] 20 mg PO HS 05/09/17 [History] Carbidopa/Levodopa 25/100 [Sinemet 25/100] 1 tab PO TID 06/23/17 [History] Nitroglycerin [Nitrostat] 0.4 mg SL Q5M PRN 06/23/17 [History] Testosterone Cypionate [Testone Cik] 150 mg IM TH 06/23/17 [History] Clopidogrel [Plavix] 75 mg PO DAILY 08/01/17 [History] Acetaminophen [Tylenol] 500 mg PO Q6HR PRN 05/21/18 [History] Aspirin 325 mg PO DAILY 05/21/18 [History] EPINEPHrine [Epipen] 0.3 mg IM ONCE PRN 05/21/18 [History] Gabapentin [Neurontin] 300 mg PO TID 05/21/18 [History] [place] Carbonate 150 mg PO HS 05/21/18 [History] Pantoprazole Sodium [Protonix] 40 mg PO DAILY 05/21/18 [History] Potassium Chloride [K-Tab ER] 20 meq PO DAILY 05/21/18 [History] hydrOXYzine pamoate [Hydroxyzine Pamoate] 25 mg PO TID 05/21/18 [History] Losartan [Cozaar] 12.5 mg PO DAILY #30 tablet 05/22/18 [Rx] raNITIdine HCl [Ranitidine HCl] 300 mg PO DAILY 06/13/18 [History] 3 Allergy/AdvReac Type Severity Reaction Status Date / Time cephalexin [From Keflex] Allergy Severe Anaphylaxis Verified 05/21/18 12:29 latex Allergy Mild Hives Verified 05/21/18 12:29 ceftriaxone [From Rocephin] Allergy Anaphylaxis Verified 05/21/18 12:29 clams Allergy Anaphylaxis Verified 05/21/18 12:29 tramadol AdvReac Seizure Verified 05/21/18 12:29 All Systems PM: A 10-system review of systems was performed and is negative for pertinent findings except as documented above in the HPI. - Constitutional Vitals: Temp Pulse Resp BP Pulse Ox 97.9 F 71 15 113/70 99 06/13/18 16:57 06/13/18 16:57 06/13/18 16:57 06/13/18 16:57 06/13/18 16:57 General appearance: Present: A&O X 3, no acute distress - Eye Eye exam: Present: normal appearance - ENT ENT exam: Present: mucous membranes dry - Respiratory Respiratory exam: Present: CTAB. Absent: accessory muscle use, rales, rhonchi, wheezes - Cardiovascular Cardiovascular exam: Present: RRR, +S1, +S2. Absent: diastolic murmur, gallop, rubs, systolic murmur - GI/Abdominal GI/Abdominal exam: Present: normal bowel sounds, soft, no peritoneal signs. Absent: distended, tenderness - Extremities Exam Extremities exam: Absent: pedal edema - Neurological Exam Neurological exam: Present: CN II-XII intact, oriented X3 - Psychiatric Psychiatric exam: Present: flat affect Internal Med - H&P Results - Labs CBC & Chem 7: 06/13/18 12:52 06/13/18 12:52 - Assessment and plan (1) Paresthesia Current Visit: Yes Status: Acute Assessment and plan: Patient with history of CVA with residual left-sided weakness and altered sensation, reports of increased paresthesias on the left side which are greater than normal CT angiogram of the head and neck was done which did not show any significant stenosis of the head or neck arteries. Head CT was also done which showed no acute intracranial findings. We will consult neurology and appreciate recommendations (2) Factitious disorder Current Visit: No Status: Chronic (3) Seizure Current Visit: No Status: Acute (4) Bipolar 1 disorder Current Visit: No Status: Chronic Assessment and plan: Continue home medications (5) CAD (coronary artery disease) Current Visit: No Status: Chronic Assessment and plan: Continue home medications Qualifiers: Coronary Disease-Associated Artery/Lesion type: [place] artery [place] vs. transplanted heart: [place] heart Associated angina: without angina Qualified Code(s): I25.10 - Atherosclerotic heart disease of [place] coronary artery without angina pectoris (6) HLD (hyperlipidemia) Current Visit: No Status: Chronic Assessment and plan: Continue home medications Qualifiers: Hyperlipidemia type: unspecified Qualified Code(s): E78.5 - Hyperlipidemia , unspecified (7) DVT prophylaxis Current Visit: No Status: Acute Assessment and plan: Subcutaneous heparin - Time Spent With Patient Total time spent is greater than 50% in coordination of care (as documented) at patient's floor/unit and/or counseling patient:
[2018-06-13] MEDS ORDERED: Naloxone 0.4 MG/ML INJ IVP PRN (18:11)
[2018-06-13] MEDS ORDERED: Nitroglycerin 0.4 MG TAB.SUBL SL PRN (18:14)
[2018-06-13] MEDS ORDERED: *HR* EPINEPHrine 0.3 MG/0.3 ML (PEN) IM PRN (18:14)
[2018-06-13] MEDS: Carbidopa/Levodopa 25/100 TABLET PO SCH (19:54)
[2018-06-13] MEDS: Venlafaxine XR (24 HR) 75 MG CAP.ER.24H PO SCH (19:54)
[2018-06-13] MEDS: Gabapentin 300 MG CAPSULE PO SCH (19:55)
[2018-06-13] MEDS ORDERED: Gabapentin 300 MG CAPSULE PO SCH (21:00)
[2018-06-13] MEDS ORDERED: Lithium Carbonate 300 MG CAPSULE PO ONE (22:00)
[2018-06-13] MEDS: LITHIUM CARBONATE 150 MG PO SCH (22:31)
[2018-06-13] MEDS: *HR* Heparin 5,000 UNIT/ML VIAL SQ SCH (22:31)
[2018-06-14] MEDS: *HR* Heparin 5,000 UNIT/ML VIAL SQ SCH ×3 (05:10→22:04)
[2018-06-14 07:09] LABS: Basophils % 0.4 %; Eosinophils # 0.2 K/mcL (0.0-0.6); Eosinophils % 3.5 %; Hematocrit 38.4 % (37.5-50.1); Hemoglobin 13.5 g/dL (12.9-16.9); Immature Granulocytes % 0.1 % (0-4); Lymphocytes # 1.1 K/mcL (0.6-4.6); Lymphocytes % 16.4 %; Mean Corpuscular HGB Conc 35.2 g/dL (31.6-35.5); Mean Corpuscular Hemoglobin 32.1 pg (28.0-33.3); Mean Corpuscular Volume 91.4 fL (83.0-100.0); Mean Platelet Volume 9.4 fL (9.4-12.4); Monocytes # 0.4 K/mcL (0.0-1.3); Monocytes % 5.5 %; Neutrophils # 5.1 K/mcL (1.6-8.9); Platelet Count 194 K/mcL (140-400); Red Cell Distribution Width 12.5 % (11.5-14.5); Segmented Neutrophils % 74.1 %
[2018-06-14] MEDS: Lithium Carbonate 300 MG CAPSULE PO SCH ×2 (08:35→15:55)
[2018-06-14] MEDS: Carbidopa/Levodopa 25/100 TABLET PO SCH ×3 (08:35→20:12)
[2018-06-14] MEDS: Famotidine 20 MG TABLET PO SCH ×2 (08:36→20:13)
[2018-06-14] MEDS: Gabapentin 300 MG CAPSULE PO SCH ×3 (08:36→20:12)
[2018-06-14] MEDS: Aspirin 325 MG TABLET PO SCH (08:36)
[2018-06-14 09:52] LABS: BUN/Creatinine Ratio 19 (6-26); Blood Urea Nitrogen 14 mg/dL (6-20); Carbon Dioxide 21 mEq/L (23-29); Chloride 109 mEq/L (98-107); Glucose 127 mg/dL (70-105); Osmolality,Calculated 286 (280-300); Potassium 3.9 mEq/L (3.5-5.1); Sodium 137 mEq/L (136-145); eGFR For Non-African Americans > 60 (> 60)
--- NOTE | 2018-06-14 11:57 | Neurology - Consult Note ---
Date of Encounter: 06/14/18 Time of Encounter: 11:52 Assessment and Plan (1) Akathisia Current Visit: Yes Status: Acute I find no evidence to suspect suggest that this patient has had an acute cerebral infarct. He is been worked up on several different occasions even received TPA 3 times. On his most recent CT scan of the head I see no evidence of previous cerebral ischemia to suggest prior infarct. The MRI scan of his head which was completed in January of this year was normal as well. He has had CTA scans of his head and neck here as well as at the [facility] none of his prior workup is suggestive of cerebral vascular disease. Echocardiogram was negative. Patient currently has significant restlessness consistent with akathisia. He is on multiple different psychotropic meds. However this point I do not feel that any additional neurologic workup is necessary. I would recommend psychiatric consultation. I will reevaluate him at your request. I would continue aspirin 325 mg daily. I am not convinced that the Plavix as necessary. History of Present Illness HPI: The chart was reviewed, the patient was seen and examined. Mr. Brown is a 53 year old male who was known to me from a previous office assessment back in September 2017. At that time he was being seen in my office for possible seizure activity. This gentleman has had extensive workup up at the [facility] for previous choke-like episodes and seizure-like episodes. Ultimately it was determined that he has neither. He is been evaluated here at our facility for strokelike episodes multiple times and is even received TPA on 3 different occasions. He is admitted here at the [facility] secondary to complaints of left-sided weakness. At this time he seems to be somewhat incoherent and has significant akathisia. He can follow some simple commands and answers some simple questions however he is not able at this time to give a lucid history. Upon arrival to [facility] his vital signs were stable. He has had CTA of the head and neck which were both normal. He had a CAT scan of the brain which reveals no evidence of acute or previous cerebral ischemia. I reviewed an MRI of his brain which we completed on 2017 which was normal. He had an echocardiogram completed on 05/21/2018 which was also normal. He is on a host of different medications including aspirin 325 mg daily and Plavix. Past Med Surg Social Fam HX - Past Medical History Medical history: CHF, coronary artery disease, CVA, DVT, hyperlipidemia, hypertension, migraine, myocardial infarction, pulmonary embolus, seizures, TIA , other Additional medical history: parkinsons Psychiatric history: anxiety, bipolar, depression, PTSD - Past Surgical History Surgical History: angioplasty/stent, cholecystectomy, hip replacement, orthopedic, other, other Additional surgical history: LEFT KNEE W/SCREWS AND METAL PLATE, bilateral hip replacements, left acl tear, rt meniscus tear - Social History Smoking Status: Former smoker Smokeless Tobacco Status: No Alcohol use: occasionally Drug use: none - Family History Mother Adopted: Yes Father Adopted: Yes Living Status: Hx Family Cardiac Disorders: Yes Medications and Allergies Benztropine Mesylate 2 mg PO BID 10/28/16 [History] Gabapentin [Neurontin] 600 mg PO TID 10/28/16 [History] [place] Carbonate 300 mg PO BID 10/28/16 [History] Venlafaxine HCl [Venlafaxine HCl ER] 225 mg PO HS 10/28/16 [History] Atorvastatin Calcium [Lipitor] 20 mg PO HS 05/09/17 [History] Carbidopa/Levodopa 25/100 [Sinemet 25/100] 1 tab PO TID 06/23/17 [History] Nitroglycerin [Nitrostat] 0.4 mg SL Q5M PRN 06/23/17 [History] Testosterone Cypionate [Testone Cik] 150 mg IM TH 06/23/17 [History] Clopidogrel [Plavix] 75 mg PO DAILY 08/01/17 [History] Acetaminophen [Tylenol] 500 mg PO Q6HR PRN 05/21/18 [History] Aspirin 325 mg PO DAILY 05/21/18 [History] EPINEPHrine [Epipen] 0.3 mg IM ONCE PRN 05/21/18 [History] Gabapentin [Neurontin] 300 mg PO TID 05/21/18 [History] [place] Carbonate 150 mg PO HS 05/21/18 [History] Pantoprazole Sodium [Protonix] 40 mg PO DAILY 05/21/18 [History] Potassium Chloride [K-Tab ER] 20 meq PO DAILY 05/21/18 [History] hydrOXYzine pamoate [Hydroxyzine Pamoate] 25 mg PO TID 05/21/18 [History] Losartan [Cozaar] 12.5 mg PO DAILY #30 tablet 05/22/18 [Rx] raNITIdine HCl [Ranitidine HCl] 300 mg PO DAILY 06/13/18 [History] 3 Allergy/AdvReac Type Severity Reaction Status Date / Time cephalexin [From Keflex] Allergy Severe Anaphylaxis Verified 05/21/18 12:29 latex Allergy Mild Hives Verified 05/21/18 12:29 ceftriaxone [From Rocephin] Allergy Anaphylaxis Verified 05/21/18 12:29 clams Allergy Anaphylaxis Verified 05/21/18 12:29 tramadol AdvReac Seizure Verified 05/21/18 12:29 ROS unobtainable: due to mental status All Systems: The remainder of the systems were reviewed and are negative Physical Examination - Vital Signs Vital Signs: Initial Vital Signs Temp Pulse Resp BP Pulse Ox 98.0 F 84 18 123/82 98 06/13/18 12:35 06/13/18 12:35 06/13/18 12:35 06/13/18 12:35 06/13/18 12:35 - Constitutional General appearance: other (Very anxious and restless.) - Neurologic Detailed motor examination: other (He is very restless manifesting akathisia. He speaks with his eyes closed. He follows some simple commands. I find no focal deficits on his exam. He can suppress the movements momentarily.) Detailed sensory examination: intact Reflex and gait examination: intact Mental Status Examination: Patient was sleeping when I entered the room. He was arousable to voice. However he is very incoherent. Speaks with loose association. Speech is dysarthric and is difficult to understand. However he told me that he was currently in [facility]. I told him that he was in fact in the hospital. He is not able to give any pertinent history regarding his own medical condition. He is very restless. Cranial nerve examination: PERRL, EOMI, no facial asymmetry is present, tongue protrudes midline Results - Laboratory Findings CBC and BMP: 06/14/18 06:34 06/14/18 06:34 Abnormal lab findings: Abnormal lab results Chloride 109 mEq/L (98-107) H 06/14/18 06:34 Carbon Dioxide 21 mEq/L (23-29) L 06/14/18 06:34 Glucose 127 mg/dL (70-105) H 06/14/18 06:34 POC Glucose 128 mg/dL (70-99) H 06/13/18 12:51 [place] 0.2 mEq/L (0.6-1.2) L 06/13/18 12:52 Consult Discharge Plan - Plan Referrals: Rickie Chavira MD [Primary Care Provider] -
--- NOTE | 2018-06-14 17:59 | Internal Med Progress Note ---
Hospitalist Progress Note - Encounter Date of Encounter: 06/14/18 Time of Encounter: 09:20 - Subjective Interval History: Pt was seen and assessed at bedside at 0920 this a.m. Pt states that his numbness and tingling in left side are unchanged. He appears to be at baseline functioning. He appears to be restless and he states it is normal for him, I have consulted psychiatry for assistance with medications and any adjustments. He denies n/v/d, diaphoresis, headache, blurred vision, neck pain, dizziness, chest pain or SOB> - Exam Vitals: Temp Pulse Resp BP Pulse Ox 97.9 F 71 16 126/65 99 06/14/18 15:30 06/14/18 15:30 06/14/18 15:30 06/14/18 15:30 06/14/18 15:30 - Assessment and Plan (1) DVT prophylaxis Current Visit: No Status: Acute Assessment and Plan: Subcutaneous heparin (2) Bipolar 1 disorder Current Visit: Yes Status: Chronic Assessment and Plan: Continue home medications. [place] level is low, medications have been restarted at home dose. Continue to monitor lithium level. (3) CAD (coronary artery disease) Current Visit: Yes Status: Chronic Assessment and Plan: Continue home medications. Limited Echo dated LVEF of 60% with all wall segments showing normal motion. EKG showed sinus rhythm first degree AV block rate 69, MA interval 243, QRS 93, QT/QTc 365/34. Patient denies chest pain. Continue telemetry. (4) HLD (hyperlipidemia) Current Visit: Yes Status: Chronic Assessment and Plan: Chronic. Continue home medications (5) Factitious disorder Current Visit: Yes Status: Chronic Assessment and Plan: Patient has had multiple workups for neurological and cardiovascular complaints. He has had complaints mimicking CVA and has received tPA twice. This diagnosis has been recognized by [facility] neurology where he was initially being treated. Pt was evaluated by neurology today, MRI canceled and no further neurologic workup is necessary. I appreciate Dr. Sampson' recommendations. Psychiatry has been consulted, they will see patient tomorrow. (6) Seizure Current Visit: Yes Status: Acute Assessment and Plan: Prior history. Continue seizure precautions. Continue home medications. (7) Paresthesia Current Visit: Yes Status: Acute Assessment and Plan: Patient with history of CVA with residual left-sided weakness and altered sensation, reports of increased paresthesias on the left side which are greater than normal, remains unchanged today per patient history.. CT angiogram of the head and neck was done which did not show any significant stenosis of the head or neck arteries. Head CT was also done which showed no acute intracranial findings. Neurology has evaluated the patient. He is familiar to the group and has had multiple negative workups both here and at [facility]. Neurology recommends no further workup at this time and suggested a consultation with psychiatry, which is ordered and pending. DVT Prophylaxis: Subcutaneous heparin 3 times daily. - Time Spent with Patient Total time spent is greater than 50% in coordination of care (as documented) at patient's floor/unit and/or counseling patient: less than 15 minutes Plan of Care Discussed with: patient Internal Medicine: Result - Labs CBC & Chem 7: 06/14/18 06:34 06/14/18 06:34 Labs: Short CBC 06/14/18 Range/Units 06:34 WBC 6.9 (4.3-11.1) K/mcL Hgb 13.5 (12.9-16.9) g/dL Hct 38.4 (37.5-50.1) % Plt Count 194 (140-400) K/mcL Neutrophils # 5.1 (1.6-8.9) K/mcL BMP 06/14/18 06:34 Sodium 137 Potassium 3.9 Chloride 109 H Carbon Dioxide 21 L BUN 14 Creatinine 0.75 Glucose 127 H Calcium 9.0 - ABG Interpretation ABG results: PT/INR, D-dimer PT 11.4 Seconds (9.4-12.1) 06/13/18 12:52 Consult Discharge Plan - Plan Referrals: Rickie Chavira MD [Primary Care Provider] - (3) CAD (coronary artery disease) Qualifiers: Coronary Disease-Associated Artery/Lesion type: [place] artery [place] vs. transplanted heart: [place] heart Associated angina: without angina Qualified Code(s): I25.10 - Atherosclerotic heart disease of [place] coronary artery without angina pectoris (4) HLD (hyperlipidemia) Qualifiers: Hyperlipidemia type: unspecified Qualified Code(s): E78.5 - Hyperlipidemia, unspecified
[2018-06-14] MEDS: Venlafaxine XR (24 HR) 75 MG CAP.ER.24H PO SCH (20:12)
[2018-06-14] MEDS: LITHIUM CARBONATE 150 MG PO SCH (20:13)
[2018-06-14] MEDS ORDERED: Lithium Oral Soln 300 MG/5 ML UDC PO SCH (21:00)
[2018-06-15] MEDS: *HR* Heparin 5,000 UNIT/ML VIAL SQ SCH (05:23)
[2018-06-15] MEDS: Gabapentin 300 MG CAPSULE PO SCH (08:40)
[2018-06-15] MEDS: Aspirin 325 MG TABLET PO SCH (08:40)
[2018-06-15] MEDS: Famotidine 20 MG TABLET PO SCH (08:40)
[2018-06-15] MEDS: Lithium Carbonate 300 MG CAPSULE PO SCH (08:40)
[2018-06-15] MEDS: Carbidopa/Levodopa 25/100 TABLET PO SCH (08:41)
[2018-06-15 12:10] VITALS: BP 103/63
--- NOTE | 2018-06-15 14:30 | Discharge Summary ---
Date of Encounter: 06/15/18 Time of Encounter: 08:25 - Discharge Diagnosis (1) DVT prophylaxis Priority: Secondary Status: Acute Assessment and Plan: Heparin SQ (2) Bipolar 1 disorder Priority: Secondary Status: Chronic Assessment and Plan: Continue home medications. [place] level is low, medications have been restarted at home dose. Continue to monitor lithium level. Pt to follow with psychiatrist for medication adjustments and labs. (3) CAD (coronary artery disease) Priority: Secondary Status: Chronic Assessment and Plan: Continue home medications. Limited Echo dated LVEF of 60% with all wall segments showing normal motion. EKG showed sinus rhythm first degree AV block rate 69, [place] interval 243, QRS 93, QT/QTc 365/34. Patient denies chest pain. Qualifiers: Coronary Disease-Associated Artery/Lesion type: [place] artery [place] vs. transplanted heart: [place] heart Associated angina: without angina Qualified Code(s): I25.10 - Atherosclerotic heart disease of [place] coronary artery without angina pectoris (4) HLD (hyperlipidemia) Priority: Secondary Status: Chronic Assessment and Plan: Chronic. Continue statin Qualifiers: Hyperlipidemia type: unspecified Qualified Code(s): E78.5 - Hyperlipidemia , unspecified (5) Factitious disorder Priority: Secondary Status: Chronic Assessment and Plan: Patient has had multiple workups for neurological and cardiovascular complaints. He has had complaints mimicking CVA and has received tPA twice. This diagnosis has been recognized by [facility] neurology where he was initially being treated. Pt was evaluated by neurology today, MRI canceled and no further neurologic workup is necessary. I appreciate Dr. Sampson' recommendations. Psychiatry has been consulted, recommend follow up with psychiatry outpatient. Pt today denies any neurological symptoms, but is fixated on talking to me about medications and doseages in passing conversation, as well as expressing displeasure with staff who he heard talking about him from another hallway. (6) Seizure Priority: Secondary Status: Acute Assessment and Plan: Subjective history. Continue seizure precautions. Patient does not appear to be medicated for seizures. Neurology note reports that patient has had extensive testing both here and at [facility], does not appear to have seizures. (7) Paresthesia Priority: Secondary Status: Acute Assessment and Plan: Patient with history of CVA with residual left-sided weakness and altered sensation, reports of increased paresthesias on the left side which are greater than normal, remains unchanged today per patient history.. CT angiogram of the head and neck was done which did not show any significant stenosis of the head or neck arteries. Head CT was also done which showed no acute intracranial findings. Neurology has evaluated the patient. He is familiar to the group and has had multiple negative workups both here and at [facility]. Neurology recommends no further workup at this time and suggested a consultation with psychiatry. Hospital course: Mr. Brown is a 53 year old male with past medical history of factitious disorder , bipolar disorder, CAD, hyperlipidemia, low testosterone, BPH, hypertension.Pt presented from home with c/o left sided body tingling and numbness. Pt has no weakness or focal deficits and is at his baseline. CTA of the head and neck was negative for any significant stenosis in the head and neck arteries. Head CT was negative. He denies symptoms today. He was evaluated by neurology; no further testing is recommended. Pt is unclear on his medication doses and has been restarted on the correct dose of [place]. Level remains decreased, pt should follow up with prescriber for adjustments. Discharge discussed with: patient - Time Spent with Patient Total time spent providing and/or coordinating discharge services: Less than 30 minutes - Discharge Medications Home Medications: Benztropine Mesylate 2 mg PO BID 10/28/16 [History] Gabapentin [Neurontin] 600 mg PO TID 10/28/16 [History] [place] Carbonate 300 mg PO BID 10/28/16 [History] Venlafaxine HCl [Venlafaxine HCl ER] 225 mg PO HS 10/28/16 [History] Atorvastatin Calcium [Lipitor] 20 mg PO HS 05/09/17 [History] Carbidopa/Levodopa 25/100 [Sinemet 25/100] 1 tab PO TID 06/23/17 [History] Testosterone Cypionate [Testone Cik] 150 mg IM TH 06/23/17 [History] Clopidogrel [Plavix] 75 mg PO DAILY 08/01/17 [History] Acetaminophen [Tylenol] 500 mg PO Q6HR PRN 05/21/18 [History] Aspirin 325 mg PO DAILY 05/21/18 [History] EPINEPHrine [Epipen] 0.3 mg IM ONCE PRN 05/21/18 [History] Gabapentin [Neurontin] 300 mg PO TID 05/21/18 [History] [place] Carbonate 150 mg PO HS 05/21/18 [History] Pantoprazole Sodium [Protonix] 40 mg PO DAILY 05/21/18 [History] Potassium Chloride [K-Tab ER] 20 meq PO DAILY 05/21/18 [History] hydrOXYzine pamoate [Hydroxyzine Pamoate] 25 mg PO TID 05/21/18 [History] Losartan [Cozaar] 12.5 mg PO DAILY #30 tablet 05/22/18 [Rx] raNITIdine HCl [Ranitidine HCl] 300 mg PO DAILY 06/13/18 [History] Allergies/Adverse Reactions: 3 Allergy/AdvReac Type Severity Reaction Status Date / Time cephalexin [From Keflex] Allergy Severe Anaphylaxis Verified 05/21/18 12:29 latex Allergy Mild Hives Verified 05/21/18 12:29 ceftriaxone [From Rocephin] Allergy Anaphylaxis Verified 05/21/18 12:29 clams Allergy Anaphylaxis Verified 05/21/18 12:29 tramadol AdvReac Seizure Verified 05/21/18 12:29 Date of admission: 06/13/18 16:11 Primary care physician: Rickie Chavira MD Consults: 06/13/18 18:14 Consult to Neurology [CONS] Routine Consulting Provider: Neurology [facility] Reason for Consult: Left-sided altered sensation Call Completed: Yes 06/14/18 17:50 Consult to Psychiatry [CONS] Routine Consulting Provider: Psychiatry [place] Reason consult: Other Other reason and/or additional details: Pt has multiple admissions for neurological symptoms, all with negative workups. Pt has been diagnosed with factitious disorder. Neurology recommends psychiatric workup. He has some akathesia, as well, requesting medication review and adjustments prn, please. Time Notified: 17:53 Call Completed: Yes Discharging clinician: Gricel Palafox Anticipated date of discharge: 06/15/18 - Constitutional Vitals: Temp Pulse Resp BP Pulse Ox 98.4 F 75 15 103/63 99 06/15/18 12:07 06/15/18 12:07 06/15/18 12:07 06/15/18 12:07 06/15/18 12:07 General appearance: Present: cooperative, A&O X 3, pleasant, no acute distress, answers questions appropriately - Head Head exam: Present: atraumatic, normal inspection, normocephalic - Eye Eye exam: Present: normal appearance, conjuntiva pink, sclera anicteric - Neck Neck exam general surgery: Present: supple, trachea midline. Absent: lymphadenopathy, tenderness - Respiratory Respiratory exam: Present: CTAB. Absent: accessory muscle use, chest wall tenderness, rales, respiratory distress, rhonchi, wheezes - Cardiovascular Cardiovascular exam: Present: RRR, +S1, +S2. Absent: diastolic murmur, gallop, rubs, systolic murmur - GI/Abdominal GI/Abdominal exam: Present: normal bowel sounds, soft, no peritoneal signs. Absent: distended, hepatomegaly, tenderness - Extremities Exam Extremities exam: Present: normal capillary refill, normal inspection, warm, radial pulses palpable and symmetrical. Absent: calf tenderness, cyanotic, pedal edema, tenderness - Neurological Exam Neurological exam: Present: alert, oriented X3, no focal deficits. Absent: facial droop, speech deficit - Psychiatric Psychiatric exam: Present: manic - Skin Skin exam: Present: dry, intact, normal color, warm. Absent: rash - Patient Status Disposition: Home, Self-Care Condition: Good Functional capacity at discharge: independent ambulation Overall status at discharge: patient is back to baseline - Discharge Instructions Follow Up With: Elba Rodríguez [Outside] - 07/31/18 9:45 am Rickie Chavira MD [Primary Care Provider] - 06/22/18 9:45 am Additional Instructions: Follow up with your PCP in the next 3-5 days for a recheck. Take your medications as directed. Return to the ER as needed for any other problems or concerns, or if your symptoms return or worsen. Resume your normal medications and return to your normal diet and activties as tolerated. Follow-up appointments: If there is not an appointment listed below, please call your physician and schedule a follow-up appointment. If you have congestive heart failure and your symptoms return, make an appointment with your physician. Medication List: Carry an up to date list of medications you are taking at all time. We have given you an updated medication list including any new medications that you have been prescribed. Please provide that list to your primary provider Symptoms: If your condition changes or you experience any of the following symptoms, notify your physician immediately: Unusual or worsening pain, fever, persistent nausea and vomiting, bleeding, increase in swelling (especially in your legs), sudden weight gain, extreme dizziness, chest pain, increased drainage or redness from a wound or incision. Go to the emergency department if you experience a problem with breathing. Weights: If you have a history of swelling or shortness of breath, weigh yourself daily and notify your physician if you have a weight gain of two or more pounds in one day or 5 or more pounds in a week. If you experience any of the warning signs for stroke: Sudden numbness or weakness of the face, arm or leg; especially on one side of the body, sudden confusion, trouble speaking or understanding, sudden trouble seeing in one or both eyes, sudden trouble walking, dizziness, loss of balance or coordination, sudden sever headache with no cause; Call 911 or go to the emergency room. Stroke is a medical emergency. Some risk factors for stroke: Age, cigarette smoking, diabetes, excessive alcohol consumption, family history , high blood pressure, overweight, physical inactivity, prior stroke, heart attack, diagnosis of carotid artery stenosis or other artery disease. If you smoke, STOP: Smoking or tobacco use significantly increases your risk of heart and lung disease. Your chance of disease greatly increases if you continue to smoke. For more information, call the [place] tobacco quit line for smoking cessation QUIT-NOW ( ) - Diet and Activity Activity: increase activity as tolerated Diet: advance to your usual diet
--- NOTE | 2018-06-15 15:52 | Consult Note ---
Date of Encounter: 06/15/18 Time of Encounter: 15:00 Assessment & Recommendation (1) Bipolar 1 disorder Current visit: Yes Status: Chronic Assessment & Recommendation: continue his medications and patient need follow up appointment. History of Present Illness Patient: new to practice Requesting Physician: Matthew Horan Reason for consult: medication review and adjustment History of present illness: Mr. Brown is a 53 year old male consulted for medication review and adjustment , patient has akhatasia and neurology cleared him for his c/o left sided weakness. Patient has h/o Bipolar and in treatment at [facility] and has psychiatrist does not remember name. he at present states i amok , i have some pain in my hips but they donot give opiates for crisis and i am ok with that. he was restless and has akhatasia but was able to give history , his moods are fine , denies suicidal/homicidal ideation , no psychosis at times he has to be redirected, he is on lithium and effexor , his lithium level today was 0.4 , he is also on high dose of gabapentin . at present as patient being discarged and has out patient psychiatrist he should follow up with his psychiatrist for medication adjustment. past psych : he is in treatment for several years for bipolar and is on disability , he has past psych inpatient , drinks alcohol rarely and no substance use disorder. Family h/o : none for psych. Social He lives by himself and no children , gets disability. A/P Bipolar affective disorder NOS continue hishome medication need to follow up with his psychiatrist and at present cleared from psych. Thank you for consult. CC: Matthew Horan Past Med Surg Social Fam HX - Past Medical History Medical history: CHF, coronary artery disease, CVA, DVT, hyperlipidemia, hypertension, migraine, myocardial infarction, pulmonary embolus, seizures, TIA , other - Past Psychiatric History Psychiatric history: Reports: bipolar Family psychiatric history: No Family History of Suicide: None - Past Surgical History Surgical History: angioplasty/stent, cholecystectomy, hip replacement, orthopedic, other, other - Social History Smoking Status: Former smoker Smokeless Tobacco Status: No Alcohol use: occasionally Drug use: none - Family History Mother Adopted: Yes Father Adopted: Yes Living Status: Hx Family Cardiac Disorders: Yes Medications & Allergies Benztropine Mesylate 2 mg PO BID 10/28/16 [History] Gabapentin [Neurontin] 600 mg PO TID 10/28/16 [History] [place] Carbonate 300 mg PO BID 10/28/16 [History] Venlafaxine HCl [Venlafaxine HCl ER] 225 mg PO HS 10/28/16 [History] Atorvastatin Calcium [Lipitor] 20 mg PO HS 05/09/17 [History] Carbidopa/Levodopa 25/100 [Sinemet 25/100] 1 tab PO TID 06/23/17 [History] Testosterone Cypionate [Testone Cik] 150 mg IM TH 06/23/17 [History] Clopidogrel [Plavix] 75 mg PO DAILY 08/01/17 [History] Acetaminophen [Tylenol] 500 mg PO Q6HR PRN 05/21/18 [History] Aspirin 325 mg PO DAILY 05/21/18 [History] EPINEPHrine [Epipen] 0.3 mg IM ONCE PRN 05/21/18 [History] Gabapentin [Neurontin] 300 mg PO TID 05/21/18 [History] [place] Carbonate 150 mg PO HS 05/21/18 [History] Pantoprazole Sodium [Protonix] 40 mg PO DAILY 05/21/18 [History] Potassium Chloride [K-Tab ER] 20 meq PO DAILY 05/21/18 [History] hydrOXYzine pamoate [Hydroxyzine Pamoate] 25 mg PO TID 05/21/18 [History] Losartan [Cozaar] 12.5 mg PO DAILY #30 tablet 05/22/18 [Rx] raNITIdine HCl [Ranitidine HCl] 300 mg PO DAILY 06/13/18 [History] 3 Allergy/AdvReac Type Severity Reaction Status Date / Time cephalexin [From Keflex] Allergy Severe Anaphylaxis Verified 05/21/18 12:29 latex Allergy Mild Hives Verified 05/21/18 12:29 ceftriaxone [From Rocephin] Allergy Anaphylaxis Verified 05/21/18 12:29 clams Allergy Anaphylaxis Verified 05/21/18 12:29 tramadol AdvReac Seizure Verified 05/21/18 12:29 Psychiatry Exam - Constitutional Vitals: Temp Pulse Resp BP Pulse Ox 98.4 F 75 15 103/63 99 06/15/18 12:07 06/15/18 12:07 06/15/18 12:07 06/15/18 12:07 06/15/18 12:07 General appearance: unkempt - Musculoskeletal Gait: other Station: other Strength & Tone: normal for patient - Psychiatric Patient Orientation: Yes Person, Yes Time, Yes Place Level of alertness: Alert Behavior: cooperative, restless Psychomotor activity: Increased Eye Contact: Maintains Eye Contact Mood Description: Euthymic/stable Affect description: congruent with mood Speech Volume: Normal Speech pattern: normal rate, normal rhythm, normal tone, fluent, spontaneous Language & Vocabulary: consistent with education Thought Process: Circumstantial Thought Content: Yes Intact Attention Span Ability: Unable to Sustain Attention Memory Description: Grossly Intact Patient Reliability: Questionable Historian Fund of knowledge: Yes average Intelligence Estimate: Average Judgment: Good Insight: Partial Results - Drug Levels and Toxicology Drug Levels and Toxicology: Drug Levels and Toxicity 06/15/18 04:58 [place] 0.4 L - Labs Labs: Laboratory Last Values WBC 6.9 K/mcL (4.3-11.1) 06/14/18 06:34 RBC 4.20 M/mcL (4.19-5.50) 06/14/18 06:34 Hgb 13.5 g/dL (12.9-16.9) 06/14/18 06:34 Hct 38.4 % (37.5-50.1) 06/14/18 06:34 MCV 91.4 fL (83.0-100.0) 06/14/18 06:34 MCH 32.1 pg (28.0-33.3) 06/14/18 06:34 MCHC 35.2 g/dL (31.6-35.5) 06/14/18 06:34 RDW 12.5 % (11.5-14.5) 06/14/18 06:34 Plt Count 194 K/mcL (140-400) 06/14/18 06:34 MPV 9.4 fL (9.4-12.4) 06/14/18 06:34 Immature Gran % 0.1 % (0-4) 06/14/18 06:34 Seg Neutrophils % 74.1 % 06/14/18 06:34 Lymphocytes % 16.4 % 06/14/18 06:34 Monocytes % 5.5 % 06/14/18 06:34 Eosinophils % 3.5 % 06/14/18 06:34 Basophils % 0.4 % 06/14/18 06:34 Neutrophils # 5.1 K/mcL (1.6-8.9) 06/14/18 06:34 Lymphocytes # 1.1 K/mcL (0.6-4.6) 06/14/18 06:34 Monocytes # 0.4 K/mcL (0.0-1.3) 06/14/18 06:34 Eosinophils # 0.2 K/mcL (0.0-0.6) 06/14/18 06:34 Basophils # 0.0 K/mcL (0.0-0.2) 06/14/18 06:34 PT 11.4 Seconds (9.4-12.1) 06/13/18 12:52 INR 1.0 06/13/18 12:52 APTT 33.2 Seconds (26.0-36.0) 06/13/18 12:52 Sodium 137 mEq/L (136-145) 06/14/18 06:34 Potassium 3.9 mEq/L (3.5-5.1) 06/14/18 06:34 Chloride 109 mEq/L (98-107) H 06/14/18 06:34 Carbon Dioxide 21 mEq/L (23-29) L 06/14/18 06:34 BUN 14 mg/dL (6-20) 06/14/18 06:34 Creatinine 0.75 mg/dL (0.70-1.30) 06/14/18 06:34 Est GFR ( Amer) > 60 (> 60) 06/14/18 06:34 Est GFR (Non-Af Amer) > 60 (> 60) 06/14/18 06:34 BUN/Creatinine Ratio 19 (6-26) 06/14/18 06:34 Glucose 127 mg/dL (70-105) H 06/14/18 06:34 POC Glucose 128 mg/dL (70-99) H 06/13/18 12:51 Calculated Osmolality 286 (280-300) 06/14/18 06:34 Calcium 9.0 mg/dL (8.6-10.3) 06/14/18 06:34 Troponin I < 0.03 ng/mL (< 0.04) 06/13/18 12:52 [place] 0.4 mEq/L (0.6-1.2) L 06/15/18 04:58 Consult Discharge Plan - Plan Additional Instructions: Follow up with your PCP in the next 3-5 days for a recheck. Take your medications as directed. Return to the ER as needed for any other problems or concerns, or if your symptoms return or worsen. Resume your normal medications and return to your normal diet and activties as tolerated. Referrals: Rickie Chavira MD [Primary Care Provider] - 06/22/18 9:45 am
== END 2018-06-15 16:35 | disposition home or self-care (01) ==
LOC: 3BNU 12:31 → EMEROO 12:31 → 3BNU 17:00
PROVIDERS: ADMIT Hospitalist; ATTEND Hospitalist